=== PATIENT | male | born 1940 | race Caucasian/White ===

== ENCOUNTER 2017-07-31 12:42 | Inpatient (IN) | payer OTHER ==
[2017-07-31 13:58] LABS: BASOPHILS 0.3 % (0-2); EOSINOPHILS 3.3 % (0-7); HEMATOCRIT 46.4 % (42.0-54.0); HEMOGLOBIN 16.1 g/dL (13.5-17.5); IMMATURE GRANULOCYTES 0.7 % (0-5); LYMPHOCYTES 19.1 % (15-50); MCH 32.7 pg (26.0-34.0); MCHC 34.7 g/dL (31.0-37.0); MCV 94.1 fL (80.0-100.0); MEAN PLATELET VOLUME 12.9 fL (7.4-10.4); MONOCYTES 13.2 % (2-11); NEUTROPHILS 63.4 % (40-80); PLATELET COUNT 168 10x3/uL (130-400); RBC 4.93 10x6/uL (4.20-6.10); RDW 12.6 % (11.5-14.5); WBC 7.2 10x3/uL (4.8-10.8)
[2017-07-31 14:28] LABS: ALBUMIN 2.5 g/dL (3.4-5.0); ALKALINE PHOSPHATASE 101 U/L (46-116); ALT (SGPT) 29 U/L (10-68); BILIRUBIN - TOTAL 0.25 mg/dL (0.2-1.3); CALC OSMOLALITY 298 mosm/kg (275-300); CALCIUM 9.3 mg/dL (8.5-10.1); CHLORIDE - SERUM 105 mmol/L (98-107); CREATININE - SERUM 3.2 mg/dL (0.6-1.3); GLUCOSE 198 mg/dL (74-106); POTASSIUM - SERUM 3.8 mmol/L (3.5-5.1); PROTEIN - SERUM 6.9 g/dL (6.4-8.2); SODIUM 141 mmol/L (136-145); UREA NITROGEN 47 mg/dL (7-18); eGFR NON AFRICAN AMERICAN 20 mL/min (90-120)
[2017-07-31 14:38] LABS: CKMB 0.8 U/L (0.0-3.6); CREATINE KINASE 45 UL (21-232)
[2017-07-31 17:20] LABS: APPEARANCE CLEAR (CLEAR); BILIRUBIN NEGATIVE (NEGATIVE); COLOR YELLOW (YELLOW); GLUCOSE 100 mg/dL (NEGATIVE); KETONE NEGATIVE (NEGATIVE); NITRITE NEGATIVE (NEGATIVE); PROTEIN 2+ mg/dL (NEGATIVE); SPECIFIC GRAVITY 1.015 (1.005-1.020); UROBILINOGEN NORMAL (NORMAL)
[2017-07-31 17:21] LABS: BACTERIA FEW /hpf (NONE SEEN); RED CELLS - URINE 0-5 /hpf (0-5); WHITE CELLS - URINE OCC /hpf (0-5)
--- NOTE | 2017-07-31 18:18 | NUR ---
CM contacted Michelle with [facility] who states we do not have any medical or critical care beds, but are not on diversion. (see [facility] notes for times.) Notified ER . Tiki Bethea RN, CM.
[2017-07-31 19:00] VITALS: BP 169/89
--- NOTE | 2017-07-31 20:40 | NUR ---
RECEIVED FROM ER VIA WC. AMBULATED WITH ASSISTANCE TO BED AND BATHROOM TO VOID. ALERT AND ORIENTED TO PERSON, PLACE AND SITUATION. IV IN L WRIST INTACT SL. STATED HE HAS BEEN HAVING WEAKNESS AND DIZZINESS FOR APPROX. 2 WEEKS. STATED HE WAS NOT A DIABETIC, BUT [facility]. HAS HIS WALLET AND INITALLY AGREED TO HAVE IT LOCKED UP, BUT NOW DOES NOT WANT TO. ORIENTED TO ROOM AND CALL LIGHT. REQUESTED SOME ICE WATER.
[2017-08-01] VITALS (7 sets, daily range): BP systolic 150–193; BP diastolic 85–105; BMI 38.0; BMI 35.2
[2017-08-01] MEDS ORDERED: LIPITOR10 MG PO (00:02)
[2017-08-01] MEDS ORDERED: TRICOR48 MG PO (00:02)
[2017-08-01] MEDS ORDERED: PROSCAR5 MG PO (00:03)
[2017-08-01] MEDS ORDERED: GLUCOTROL 5 MG T5 MG PO (00:04)
[2017-08-01] MEDS ORDERED: HYDRALAZINE HCL10 MG PO (00:04)
[2017-08-01] MEDS ORDERED: BAYER CHEWABLE81 MG PO (00:05)
[2017-08-01] MEDS ORDERED: FLOMAX0.4 MG PO (00:06)
[2017-08-01] MEDS ORDERED: ISOSORBIDE DINI10 MG PO (00:07)
[2017-08-01] MEDS ORDERED: LANTUS INSULIN10 ML SQ (00:10)
--- NOTE | 2017-08-01 03:30 | NUR ---
RESTING WITH EYES CLOSED. RR 18 EVEN U/L. NO SIGNS/SYMPTOMS OF DISCOMFORT. CALL LIGHT IN REACH.
[2017-08-01 06:18] LABS: BASOPHILS 0.1 % (0-2); EOSINOPHILS 4.6 % (0-7); HEMATOCRIT 46.1 % (42.0-54.0); HEMOGLOBIN 15.8 g/dL (13.5-17.5); IMMATURE GRANULOCYTES 0.9 % (0-5); LYMPHOCYTES 23.9 % (15-50); MCH 32.2 pg (26.0-34.0); MCHC 34.3 g/dL (31.0-37.0); MCV 93.9 fL (80.0-100.0); MEAN PLATELET VOLUME 12.8 fL (7.4-10.4); MONOCYTES 12.4 % (2-11); NEUTROPHILS 58.1 % (40-80); PLATELET COUNT 172 10x3/uL (130-400); RBC 4.91 10x6/uL (4.20-6.10); RDW 12.7 % (11.5-14.5); WBC 7.6 10x3/uL (4.8-10.8)
[2017-08-01 06:39] LABS: ANION GAP 12.3 mmol/L (8-16); CALCIUM 8.7 mg/dL (8.5-10.1); CARBON DIOXIDE 26.9 mmol/L (21.0-32.0); CREATININE - SERUM 3.2 mg/dL (0.6-1.3)
[2017-08-01 06:45] LABS: POTASSIUM - SERUM 3.2 mmol/L (3.5-5.1)
--- NOTE | 2017-08-01 07:44 | NUR ---
AM ROUNDS COMPLETED. INTRODUCED MYSELF TO PT PRIMARY RN FOR TODAYS SHIFT. PT A&O SITTING UP IN BED RESTING QUIETLY. PT HAS A L.FA PIV WITH DRSG CDI AND SWAB CAPS IN USE. TUBING LABELED AND DATED CORRECTLY PER POLICY. PT WEARING TELEMETRY RUNNING SR WITH 1ST DEGREE BLOCK PER JOSEPHINE TELEMETRY MONITER. EMPTIED BEDSIDE URINAL OF 175ML CLEAR YELLOW URINE. PTS BP STILL HYPERTENSIVE AND HE WAS TREATED WITH PRN CLONIDINE PER TESTER EQUIPMENT NURSE. PT RESTING AND DENIES ANY CURRENT NEEDS AT THIS TIME. CL IN REACH, BED IN LOWEST, SIDE RAILS X2. WILL CPOC.
--- NOTE | 2017-08-01 11:06 | NUR ---
@ [phone] SPOKE WITH [facility] ([phone]) TO NOTIFY THEM THAT THE PATIENT WAS SENT TO [facility] ER FROM THE [facility] AND HE WAS ADMITTED TO THE FLOOR. HAD HIS NAME PLACED ON THE TRANSFER LIST. THE [facility] CURRENTLY HAS NOT BEDS (ACUTE OR ICU).
--- NOTE | 2017-08-01 11:36 | NUR ---
PT WAS FOUND ON BR FLOOR AND STATES HE SLIPPED ON SOMETHING FELL. NOTED WAS HIS KNOCKED OVER URINAL AND PTS CLOTHING IS SOILED WITH IT. PT DENIES HITTING HIS HEAD OR ANY PAIN. PT STATES HE SLIPPED IN BATHROOM AND GRABBED TOILET BUT DIDNT HIT ANY BODY PARTS. NO NOTED INJURIES OR SKIN BREAKDOWN. PT WAS NOT A HIGH FALL RISK ON ASSESSMENT HE LIVES ALONE AND NORMALLY AMBULATES SAFELY, THIS FALL WAS NOT R/T WEAKNESS HOWEVER HE SLIPPED EVEN WITH HIS NON-SLIP SOCKS ON. PRIMARY NOTIFIED AND TIFF GANNON NP ON FLOOR AND AWARE. INSPECTOR FINAL ASSEMBLY ELECTRICAL ASSISTED PT INTO BED AND COMPLETED BED BATH AND LINEN CHANGE PROVIDED. PT NOW CLEAN AND DRY AND RESTING QUIETLY IN BED. FALL RISK BAND PLACED, AND LEN PAD IN PLACE AND ON NOW. EXPLAINED TO PT TO CALL FOR ASSISTANCE OOB R/T THIS NEW FALL. CL IN REACH, BED IN LOWEST, SIDE RAILS X2, LEN PAD IN PLACE. WILL CPOC.
--- NOTE | 2017-08-01 13:44 | NUR ---
CALLED [facility] AND SPOKE WITH BERKLEY SHE IS GOING TO SEND OVER PTS BASELINE LABS FOR RENAL ISSUES AND ALL CURRENT MEDICATIONS AND H&P
[2017-08-01] MEDS ORDERED: TOPROL XL100 MG PO (14:44)
--- NOTE | 2017-08-01 15:04 | NUR ---
MED REC [facility] PER [facility] MOST RECENT HX ALONG WITH MEDICAL HX WHICH WAS PRESENTED TO PRIMARY FOR RECORDS. WILL CPOC.
--- NOTE | 2017-08-01 16:24 | NUR ---
PT FEELS NEED TO URINATE AFTER EMPTYING BLADDER. AT BEDSIDE AND REQUEST BLADDER SCAN. POST VOID RETENTION SHOWS 385ML, LOWE ORDERED AND WILL BE PLACED. TEACHING PROVIDED TO PT, PT VERBALIZED UNDERSTANDING AND DENIES ANY QUESTIONS OR CONCERNS. WILL CPOC.
--- NOTE | 2017-08-01 16:46 | NUR ---
16 FR LOWE CATHETER INSERTED USING STERILE TECHNIQUE. PT DID NOT TOLERATE WELL IT WAS VERY PAINFUL AND HE HOLLERED OUT CONTINUOUSLY. STAT LOCK SECURED TO L.INNER THIGH. SCANT AMOUNT OF BLOODY URINE DRAINED AT FIRST AND ITS NOW CLEAR YELLOW. APPLIED SCDS BILAT FOR DVT PROPHYLACTICS AND PT VERBALIZED UNDERSTANDING. NO FURTHER NEEDS AT THIS TIME. CL IN REACH, BED IN LOWEST, SIDE RAILS X2. WILL CPOC.
[2017-08-01 17:27] LABS: HEMOGLOBIN A1C 7.1 % (4.8-6.0)
--- NOTE | 2017-08-01 17:37 | NUR ---
PRN BP MEDS NOT GIVEN PER VERBAL ORDERS AT BEDSIDE R/T STARTING ALL PTS NORMAL BP MEDS. WILL TREAT IF STILL NEEDED.
--- NOTE | 2017-08-01 20:42 | NUR ---
NIGHTLY MEDICATIONS PASSED. PT RESTING QUIETLY IN BED AND DENIES ANY CURRENT PAIN FOR FURTHER NEEDS, STATES "IM READY TO SLEEP AND SUPPER WAS GOOD" CL IN REACH, BED IN LOWEST, SIDE RAILS X2. WILL CPOC.
[2017-08-02 01:53] VITALS: BP 152/77
--- NOTE | 2017-08-02 02:01 | NUR ---
PT RESTING COMFORTABLY, EYES CLOSED, RESPIRATIONS EVEN AND UNLABORED. CONTINUE TO MONITOR CLOSELY. BED LOW, CALL LIGHT IN REACH, SIDE RAILS X 2, HOB 20 DEGREES.
--- NOTE | 2017-08-02 03:48 | NUR ---
I ASSISTED PT UP TO BATHROOM, PT STATES HE NEEDS TO HAVE A BM. CHRISSY IS DRAINING DARK COLORED URINE AT THIS TIME. PT STATES HE HAS FALLEN SEVERAL TIMES AT HOME PRIOR TO BEING ADMITTED HERE. I HAVE ASKED PT TO USE THE CALL STRING IN THE BATHROOM AND NOT TO AMBULATE ON HIS OWN. PT STATES HE WILL DO SO. CONTINUE TO MONITOR CLOSELY.
[2017-08-02 04:16] VITALS: BP 127/79
[2017-08-02 05:39] LABS: BASOPHILS 0.1 % (0-2); EOSINOPHILS 4.3 % (0-7); HEMATOCRIT 42.3 % (42.0-54.0); HEMOGLOBIN 14.3 g/dL (13.5-17.5); IMMATURE GRANULOCYTES 0.6 % (0-5); LYMPHOCYTES 18.8 % (15-50); MCHC 33.8 g/dL (31.0-37.0); MCV 94.6 fL (80.0-100.0); MEAN PLATELET VOLUME 12.7 fL (7.4-10.4); MONOCYTES 14.7 % (2-11); NEUTROPHILS 61.5 % (40-80); PLATELET COUNT 151 10x3/uL (130-400); RBC 4.47 10x6/uL (4.20-6.10); RDW 12.6 % (11.5-14.5); WBC 6.8 10x3/uL (4.8-10.8)
[2017-08-02 05:47] LABS: ANION GAP 10.8 mmol/L (8-16); CALCIUM 8.3 mg/dL (8.5-10.1); CARBON DIOXIDE 26.5 mmol/L (21.0-32.0); CREATININE - SERUM 3.5 mg/dL (0.6-1.3); POTASSIUM - SERUM 3.3 mmol/L (3.5-5.1)
--- NOTE | 2017-08-02 08:01 | NUR ---
AM ROUNDS - PT IS IN BED AND AWAKE AT THIS TIME. YELLOW BAND ON. SCDS ON. LOWE DRAINING CLEAR YELLOW. NON SKID SOCKS ON. IV TO LEFT WRIST, SL. UNSURE WHAT IS SHOWING ON THE MONITOR. REED WORKER IS STUDING THE STRIP AT THIS TIME. NO NEEDS AT THIS TIME. WILL CONTINUE TO MONITOR
[2017-08-02 08:46] VITALS: BP 155/76
[2017-08-02 11:59] VITALS: BP 135/68
--- NOTE | 2017-08-02 15:13 | NUR ---
PC to [facility] @ [phone]. Spoke with Larissa. She states they do not have any beds and are holding patients in their ED. She states they will contact us when bed available, no need for us to call daily.
--- NOTE | 2017-08-02 15:50 | NUR ---
MET WITH PATIENT TO DISCUSS DISCHARGE PLAN. PATIENT RESIDES AT [facility]. HIS DAUGHTER USE TO LIVE IN HIS APARTMENT WITH HIM, BUT HAS MOVED OUT AND HE DOES NOT KNOW HER NEW ADDRESS OR PHONE NUMBER (SHE WAS HIS EMERGENCY CONTACT). HE SAID HE HAS A FRIEND, BUT WON'T GIVE OUT HIS INFORMATION WITHOUT HIS PERMISSION. HE WILL RETURN TO THE [facility]. HE HAS A WALKER AT HOME AND OXYGEN THAT WAS SUPPLIED BY THE [facility]. HE SEE'S A DOCTOR AT HE [facility], BUT IS UNSURE OF HIS NAME. STATED "SOMETIMES I SEE SOMEONE DIFFERENT EACH TIME I GO". HE SAID HE HAS ANOTHER APPOINTMENT ALREADY SCHEDULED, BUT THAT INFORMATION IS NOT WITH HIM. WHEN WE DISCUSSED HOW HE WAS GOING TO GET HOME, HE SAID HE WOULDN'T HAVE A RIDE UNTIL SATURDAY NIGHT LATE, OR MAYBE SATURDAY, OR MAYBE SATURDAY. I EXPLAINED I WOULD TALK WITH MY WHOLESALE MANAGER ABOUT THE POSSIBILITY OF GETTING HIM A CAB HOME. PATIENT WAS OK WITH THIS. HE DENIES HOME HEALTH OR PERSONAL CARE AIDES OR THE NEED FOR THEM. [facility], AND DOES NOT USE LOCAL PHARMACIES. HIS DAUGHTER GETS "THOSE SMALLER DOSES FOR ME". CM WILL CONTINUE TO FOLLOW UNTIL DISCHARGED.
--- NOTE | 2017-08-02 15:56 | NUR ---
WALKED INTO PT'S ROOM AND IV IS OUT AND SITTING ON BEDSIDE TABLE. ASKED PT WHO TOOK OUT IV AND PT STATED "I DID". I ASKED WHY AND PT STATED "BECAUSE THEY SAID I WAS GOING HOME". PT IS CONCERNED ABOUT HIS LOWE AND BEING D/C. I EXPLAINED TO PT THAT THE D/C PAPERWORK IS BEING DONE AT THIS TIME AND I WILL BE BACK IN TO D/C HIM AND AT THAT TIME I WILL D/C LOWE AND TO PLEASE LEAVE EVERYTHING ELSE ATTACHED. WILL CONTINUE TO MONITOR
[2017-08-02 16:20] VITALS: BP 156/76
--- NOTE | 2017-08-02 16:39 | NUR ---
PATIENT STATES HE HAS ALREADY HAD A FLU VACCINE
--- NOTE | 2017-08-02 16:49 | NUR ---
PT IS BED AT THIS TIME WITH NO NEEDS. BED AT LOWEST POSITION. CALL VARGAS IN USE/REACH. SIDE RAILS UP X2. WILL CONTINUE TO MONITOR
--- NOTE | 2017-08-02 17:38 | NUR ---
WALKED IN PT'S ROOM TO Rg/Remigio LOWE AND PT WAS SITTING ON FLOOR. PT STATES HE WAS TRYING TO GET TO ANOTHER CHAIR AND "SLID" OUT OF THE BED. PT STATES HE DID NOT FALL, HIT HIS HEAD OR ANY OTHER PART OF HIS BODY. PT DENIES AND PAIN. NO SCRATCES OR RED AREAS NOTED. CHARGE NURSE NOTIFIED, JOE BRAXTON RN. TIFF WITH DR. JAME LOMBARDI. AWAITING RETURN CALL FROM TIFF. LEN MAT WAS ON BED AND HOOKED UP AND ON. UNSURE WHY ALARM DID NOT SOUND. BED WAS AND IS AT LOWEST POSITION. CALL VARGAS IS AND WAS WITHIN REACH. SIDE RAILS WERE AND ARE UP X2. NON SKID SOCKS WERE AND ARE ON. WILL CONTINUE TO MONITOR.
--- NOTE | 2017-08-02 18:22 | NUR ---
MARIA C MATTHEW APN AGAIN
[2017-08-02 19:00] VITALS: BP 174/87
--- NOTE | 2017-08-02 19:35 | NUR ---
PT IN BED WATCHING TELEVISION. TURNED OFF LIGHTS AND CLOSED DOOR PER REQUEST. DENIES FURTHER NEEDS AT THIS TIME.
--- NOTE | 2017-08-02 20:57 | NUR ---
PT IN BED RESTING QUEITLY. BED IN LOW POSITION. CALL LIGHT WITHIN REACH. WILL CPOC.
[2017-08-03] VITALS: BP 147/74
[2017-08-03 04:00] VITALS: BP 147/75
[2017-08-03 05:46] LABS: BASOPHILS 0.1 % (0-2); EOSINOPHILS 4.9 % (0-7); HEMATOCRIT 41.9 % (42.0-54.0); HEMOGLOBIN 14.3 g/dL (13.5-17.5); IMMATURE GRANULOCYTES 0.4 % (0-5); MCH 31.9 pg (26.0-34.0); MCHC 34.1 g/dL (31.0-37.0); MCV 93.5 fL (80.0-100.0); MEAN PLATELET VOLUME 12.6 fL (7.4-10.4); MONOCYTES 15.3 % (2-11); NEUTROPHILS 61.3 % (40-80); PLATELET COUNT 147 10x3/uL (130-400); RBC 4.48 10x6/uL (4.20-6.10); RDW 12.6 % (11.5-14.5)
[2017-08-03 05:58] LABS: ANION GAP 12.5 mmol/L (8-16); CALCIUM 8.3 mg/dL (8.5-10.1); CARBON DIOXIDE 23.5 mmol/L (21.0-32.0); CREATININE - SERUM 3.4 mg/dL (0.6-1.3)
[2017-08-03 08:00] VITALS: BP 162/69
--- NOTE | 2017-08-03 08:43 | NUR ---
AM ROUNDS - PT IS IN BED AND AWAKE AT THIS TIME. MONITOR SHOWING SR, HR 60. NO IV. BED AT LOWEST POSITION. CALL VARGAS IN USE/REACH. SIDE RAILS UP X2. NO NEEDS AT THIS TIME. WILL CONTINUE TO MONITOR
[2017-08-03 12:20] VITALS: BP 148/60
--- NOTE | 2017-08-03 13:41 | NUR ---
D/C - WRITTEN AND VERBAL D/C INSTRUCTIONS GIVEN TO PT. NO IV TO REMOVE. HEART MONITOR D/C AND RETURNED TO PERMANENT MOLD SUPERVISOR. PT LEFT FLOOR VIA WHEELCHAIR WITH MARCELO. TERA TO NURSES' REGISTRY DIRECTOR PT. TAXI CO CALLED. WILL D/C
--- NOTE | 2017-08-05 10:26 | NUR ---
Patient Name: BRYANT ESPANA Encounter No: [id number] : 1940 Primary Insurance: [employer] Anticipated DC Date: 06-02-2017 Planned Disposition: HOME DCP follow-up note: CHART REVIEWED, CM CALLED [facility] EXPEDITOR, , NOTIFIED [facility] THAT PT HAD DISCHARGED HOME 08-02-17 AND LEFT THE HOSPITAL ON 08-03-17. Romeo Preston, CASE MANAGMENT
== END 2017-08-03 13:45 | disposition home or self-care (01) | DRG 683 ==
LOC: D.ER 12:42 → D.M2 18:44
PROVIDERS: Family Medicine; ADMIT Family Medicine
DX: I12.9 Hypertensive chronic kidney disease with stage 1 through stage 4 chronic kidney disease, or unspecified chronic kidney disease (principal); N18.4 Chronic kidney disease, stage 4 (severe); N32.0 Bladder-neck obstruction; G47.33 Obstructive sleep apnea (adult) (pediatric); E11.22 Type 2 diabetes mellitus with diabetic chronic kidney disease; I25.10 Atherosclerotic heart disease of native coronary artery without angina pectoris; F03.90 Unspecified dementia, unspecified severity, without behavioral disturbance, psychotic disturbance, mood disturbance, and anxiety; Z85.46 Personal history of malignant neoplasm of prostate; Z87.891 Personal history of nicotine dependence; Z95.1 Presence of aortocoronary bypass graft; R51 Headache

== ENCOUNTER 2018-01-21 19:26 | Inpatient (IN) | payer MEDICARE, OTHER ==
[~2018-01-21] VITALS: Ht 182.9 cm; Wt 106.6 kg
--- NOTE | ~2018-01-21 | EC ---
PATIENT:BRYANT ESPANA DATE OF SERVICE: 01/21/18 SEX: M MEDICAL RECORD: [id number] DATE OF : [birth year] LOCATION:D.M2 D.212 AGE OF PATIENT: 77 ADMISSION DATE: 01/21/18 REFERRING PHYSICIAN: INTERPRETING PHYSICIAN: GHAZAL KENNEDY MD ECHOCARDIOGRAM REPORT ECHO CHARGES 4 ECHO COMPLETE Date: 01/22 CLINICAL DIAGNOSIS: CHF ECHOCARDIOGRAPHIC MEASUREMENTS (adult normal given) AC root (d.<3.7cm) 3.0 cm LV Septum d (<1.2 cm> 1.6 cm Valve Excursion 2.0 cm LV Septum (systole) 2.2 cm Left Atria (s.<4.0cm> 3.7 cm LVPW d(<1.2cm) 1.6 cm RV (d.<2.3cm) 3.1 cm LVPW (sytole) 2.0 cm LV diastole(<5.6CM) 5.9 cm MV E-F(>70mm/sec) cm LV systole 4.3 cm LVOT Diameter 1.8 cm MV exc.(>10mm) cm Est.ejection fraction (50-75%) % DOPPLER: LVIT cm/sec A 85.0 cm/sec E 103 cm/sec LA cm/sec RVSP 53.2 mmHg LVOT 86.0 cm/sec AOP1/2T m/s Asc. Ao 164 cm/sec RVOT 68.0 cm/sec RA cm/sec PA 103 cm/sec AV Gradient Peak 11.0 mmHg AV Mean 5.3 mmHg AV Area 1.3 cm MV Gradient Peak 6.2 mmHg MV Mean 2.2 mmHg MV Area cm COMMENTS: Flight Test Engineer: [address] [place] [address] Radio Technician: 1 Dr. Kennedy TAPE# PACS Pericardial Effusion N DATE OF SERVICE: FINDINGS: 1. Left ventricular chamber size is mildly dilated. Left ventricular systolic function is markedly reduced. Overall ejection fraction in the 15% to 20% range. 2. Left atrium, right atrium, and right ventricular chamber sizes are within normal limits. 3. Valvular structures have normal structure and motion. 4. Doppler interrogation reveals severe mitral regurgitation, severe tricuspid ECHOCARDIOGRAM REPORT [id number] BRYANT ESPANA regurgitation, no other valvular insufficiency or stenosis. Pulmonary systolic pressure is elevated, estimated at 53 mmHg. 5. No evidence of pericardial effusion or left ventricular thrombus. TRANSINT:[id number] Voice Confirmation ID: [id number] DOCUMENT ID: [id number] GHAZAL KENNEDY MD at 1057 CC: [id number] DICTATION DATE: 01/23/18 1254 STAFFING PROGRAM MANAGER: 01/23/18 1304 ADM IN [facility] [address] [place] [address]
[~2018-01-21 19:26] MED LIST: BAYER CHEWABLE81 MG PO; FLOMAX0.4 MG PO; GLUCOTROL 5 MG T5 MG PO; HYDRALAZINE HCL10 MG PO; ISOSORBIDE DINI10 MG PO; LANTUS INSULIN10 ML SQ; LIPITOR10 MG PO; PROSCAR5 MG PO; TOPROL XL100 MG PO; TRICOR48 MG PO
[2018-01-21 19:53] LABS: BASOPHILS 0.1 % (0-2); EOSINOPHILS 0.2 % (0-7); HEMATOCRIT 45.2 % (42.0-54.0); HEMOGLOBIN 15.4 g/dL (13.5-17.5); IMMATURE GRANULOCYTES 0.4 % (0-5); LYMPHOCYTES 8.8 % (15-50); MCH 31.9 pg (26.0-34.0); MCHC 34.1 g/dL (31.0-37.0); MCV 93.6 fL (80.0-100.0); MEAN PLATELET VOLUME 12.5 fL (7.4-10.4); MONOCYTES 13.9 % (2-11); NEUTROPHILS 76.6 % (40-80); PLATELET COUNT 167 10x3/uL (130-400); RBC 4.83 10x6/uL (4.20-6.10); RDW 13.5 % (11.5-14.5); WBC 10.2 10x3/uL (4.8-10.8)
[2018-01-21 20:35] LABS: ALBUMIN 2.3 g/dL (3.4-5.0); ALKALINE PHOSPHATASE 132 U/L (46-116); ALT (SGPT) 7 U/L (10-68); BILIRUBIN - TOTAL 1.53 mg/dL (0.2-1.3); CALCIUM 8.5 mg/dL (8.5-10.1); CARBON DIOXIDE 21.9 mmol/L (21.0-32.0); CKMB 0.2 U/L (0.0-3.6); CREATINE KINASE 18 UL (21-232); CREATININE - SERUM 2.1 mg/dL (0.6-1.3); GLUCOSE 176 mg/dL (74-106); PROTEIN - SERUM 6.6 g/dL (6.4-8.2); UREA NITROGEN 47 mg/dL (7-18); eGFR NON AFRICAN AMERICAN 32 mL/min (90-120)
[2018-01-21 20:57] LABS: CALC OSMOLALITY 307 mosm/kg (275-300); CHLORIDE - SERUM 107 mmol/L (98-107); POTASSIUM - SERUM 3.3 mmol/L (3.5-5.1); SODIUM 147 mmol/L (136-145)
[2018-01-21 21:06] LABS: TROPONIN-I 0.087 ng/mL (0.000-0.060)
[2018-01-21 21:25] LABS: PRO BNP 28596 pg/mL (0-450)
[2018-01-22] VITALS (7 sets, daily range): BP systolic 121–159; BP diastolic 78–97; Ht 182.9 cm; Wt 106.6 kg
[2018-01-22 02:26] LABS: CKMB 0.8 U/L (0.0-3.6); CREATINE KINASE 28 UL (21-232)
[2018-01-22 02:27] LABS: TROPONIN-I 0.114 ng/mL (0.000-0.060)
[2018-01-22 07:57] LABS: BASOPHILS 0.1 % (0-2); EOSINOPHILS 1.5 % (0-7); HEMATOCRIT 43.6 % (42.0-54.0); HEMOGLOBIN 14.5 g/dL (13.5-17.5); IMMATURE GRANULOCYTES 0.5 % (0-5); LYMPHOCYTES 11.4 % (15-50); MCH 31.1 pg (26.0-34.0); MCHC 33.3 g/dL (31.0-37.0); MCV 93.6 fL (80.0-100.0); MEAN PLATELET VOLUME 12.7 fL (7.4-10.4); MONOCYTES 15.9 % (2-11); NEUTROPHILS 70.6 % (40-80); PLATELET COUNT 142 10x3/uL (130-400); RBC 4.66 10x6/uL (4.20-6.10); RDW 13.5 % (11.5-14.5); WBC 8.4 10x3/uL (4.8-10.8)
[2018-01-22 09:13] LABS: CALC OSMOLALITY 308 mosm/kg (275-300); CALCIUM 8.6 mg/dL (8.5-10.1); CARBON DIOXIDE 25.8 mmol/L (21.0-32.0); CHLORIDE - SERUM 106 mmol/L (98-107); CKMB 0.8 U/L (0.0-3.6); CREATINE KINASE 23 UL (21-232); GLUCOSE 152 mg/dL (74-106); MAGNESIUM - SERUM 1.9 mg/dL (1.8-2.4); POTASSIUM - SERUM 3.3 mmol/L (3.5-5.1); SODIUM 147 mmol/L (136-145); UREA NITROGEN 51 mg/dL (7-18)
[2018-01-22 09:15] LABS: CREATININE - SERUM 4.2 mg/dL (0.6-1.3); TROPONIN-I 0.097 ng/mL (0.000-0.060); eGFR NON AFRICAN AMERICAN 15 mL/min (90-120)
[2018-01-22 14:37] LABS: CKMB 0.6 U/L (0.0-3.6); CREATINE KINASE 22 UL (21-232)
[2018-01-22 15:12] LABS: TROPONIN-I 0.082 ng/mL (0.000-0.060)
[2018-01-22 15:58] LABS: APPEARANCE HAZY (CLEAR); COLOR YELLOW (YELLOW); NITRITE NEGATIVE (NEGATIVE); SPECIFIC GRAVITY 1.015 (1.005-1.020)
[2018-01-22 15:59] LABS: BILIRUBIN NEGATIVE (NEGATIVE); GLUCOSE 50 mg/dL (NEGATIVE); KETONE NEGATIVE (NEGATIVE); PROTEIN 1+ mg/dL (NEGATIVE); UROBILINOGEN NORMAL (NORMAL)
[2018-01-22 16:00] LABS: BACTERIA MODERATE /hpf (NONE SEEN); RED CELLS - URINE >50 /hpf (0-5); WHITE CELLS - URINE 0-5 /hpf (0-5)
[2018-01-23 04:00] VITALS: BP 124/82
[2018-01-23 05:56] LABS: BASOPHILS 0.1 % (0-2); EOSINOPHILS 3.3 % (0-7); HEMATOCRIT 40.1 % (42.0-54.0); HEMOGLOBIN 13.6 g/dL (13.5-17.5); IMMATURE GRANULOCYTES 0.6 % (0-5); LYMPHOCYTES 13.6 % (15-50); MCH 31.5 pg (26.0-34.0); MCHC 33.9 g/dL (31.0-37.0); MCV 92.8 fL (80.0-100.0); MEAN PLATELET VOLUME 12.8 fL (7.4-10.4); MONOCYTES 13.8 % (2-11); NEUTROPHILS 68.6 % (40-80); PLATELET COUNT 161 10x3/uL (130-400); RBC 4.32 10x6/uL (4.20-6.10); RDW 13.4 % (11.5-14.5); WBC 6.9 10x3/uL (4.8-10.8)
[2018-01-23 06:30] LABS: ANION GAP 17.9 mmol/L (8-16); CALCIUM 8.4 mg/dL (8.5-10.1); CARBON DIOXIDE 25.2 mmol/L (21.0-32.0); CHOL - HDL RATIO 7.5 ratio (2.3-4.9); CREATININE - SERUM 4.8 mg/dL (0.6-1.3); LDL-HDL RATIO 5.1 ratio (1.5-3.5); MAGNESIUM - SERUM 1.8 mg/dL (1.8-2.4); POTASSIUM - SERUM 3.1 mmol/L (3.5-5.1)
[2018-01-23 09:35] VITALS: BP 147/88
[2018-01-23 18:42] VITALS: BP 161/89
[2018-01-23 20:00] VITALS: BP 167/85
[2018-01-23 22:07] LABS: PROTEIN - URINE 272.9 mg/dL (0.0-11.9)
[2018-01-24] VITALS: BP 166/98
[2018-01-24 06:08] LABS: ANION GAP 17.1 mmol/L (8-16); CALCIUM 8.8 mg/dL (8.5-10.1); CARBON DIOXIDE 24.1 mmol/L (21.0-32.0); CREATININE - SERUM 4.9 mg/dL (0.6-1.3); POTASSIUM - SERUM 3.2 mmol/L (3.5-5.1)
[2018-01-24 06:09] LABS: BASOPHILS 0.1 % (0-2); EOSINOPHILS 4.8 % (0-7); HEMATOCRIT 39.2 % (42.0-54.0); HEMOGLOBIN 13.3 g/dL (13.5-17.5); IMMATURE GRANULOCYTES 0.5 % (0-5); LYMPHOCYTES 12.8 % (15-50); MCH 31.2 pg (26.0-34.0); MCHC 33.9 g/dL (31.0-37.0); MEAN PLATELET VOLUME 12.7 fL (7.4-10.4); MONOCYTES 11.3 % (2-11); NEUTROPHILS 70.5 % (40-80); PLATELET COUNT 176 10x3/uL (130-400); RBC 4.26 10x6/uL (4.20-6.10); RDW 13.2 % (11.5-14.5); WBC 7.5 10x3/uL (4.8-10.8)
[2018-01-24 09:35] VITALS: BP 150/85
[2018-01-24 12:26] VITALS: BP 154/79
[2018-01-24 16:57] VITALS: BP 165/80
[2018-01-24 21:06] VITALS: BP 122/80
[2018-01-25 04:32] VITALS: BP 147/90
[2018-01-25 05:40] LABS: BASOPHILS 0.2 % (0-2); EOSINOPHILS 6.6 % (0-7); HEMATOCRIT 39.9 % (42.0-54.0); HEMOGLOBIN 13.7 g/dL (13.5-17.5); IMMATURE GRANULOCYTES 0.5 % (0-5); LYMPHOCYTES 16.4 % (15-50); MCH 31.4 pg (26.0-34.0); MCHC 34.3 g/dL (31.0-37.0); MCV 91.3 fL (80.0-100.0); MEAN PLATELET VOLUME 12.1 fL (7.4-10.4); MONOCYTES 12.6 % (2-11); NEUTROPHILS 63.7 % (40-80); PLATELET COUNT 160 10x3/uL (130-400); RBC 4.37 10x6/uL (4.20-6.10); WBC 5.8 10x3/uL (4.8-10.8)
[2018-01-25 05:55] LABS: ANION GAP 16.8 mmol/L (8-16); CALCIUM 8.8 mg/dL (8.5-10.1); CARBON DIOXIDE 25.2 mmol/L (21.0-32.0)
[2018-01-25 07:53] VITALS: BP 141/87
[2018-01-25 11:11] VITALS: BP 137/81
[2018-01-25 15:19] VITALS: BP 140/85
[2018-01-25 20:30] VITALS: BP 151/88
[2018-01-26 00:30] VITALS: BP 140/92
[2018-01-26 04:30] VITALS: BP 147/93
[2018-01-26 07:33] LABS: BASOPHILS 0.1 % (0-2); EOSINOPHILS 4.8 % (0-7); HEMOGLOBIN 14.3 g/dL (13.5-17.5); IMMATURE GRANULOCYTES 0.9 % (0-5); LYMPHOCYTES 11.9 % (15-50); MCH 31.5 pg (26.0-34.0); MCV 92.5 fL (80.0-100.0); MEAN PLATELET VOLUME 12.5 fL (7.4-10.4); MONOCYTES 12.4 % (2-11); NEUTROPHILS 69.9 % (40-80); PLATELET COUNT 188 10x3/uL (130-400); RBC 4.54 10x6/uL (4.20-6.10); RDW 13.1 % (11.5-14.5)
[2018-01-26 07:34] LABS: WBC 8.1 10x3/uL (4.8-10.8)
[2018-01-26 07:54] LABS: ANION GAP 20.5 mmol/L (8-16); CARBON DIOXIDE 24.2 mmol/L (21.0-32.0); CREATININE - SERUM 5.3 mg/dL (0.6-1.3); POTASSIUM - SERUM 3.7 mmol/L (3.5-5.1)
[2018-01-26 09:27] VITALS: BP 162/79
[2018-01-26 12:09] VITALS: BP 154/85
[2018-01-26 15:05] VITALS: BP 124/80
[2018-01-26 20:00] VITALS: BP 150/85
[2018-01-27] VITALS: BP 178/103
[2018-01-27 04:00] VITALS: BP 146/95
[2018-01-27 07:00] LABS: BASOPHILS 0.1 % (0-2); EOSINOPHILS 3.4 % (0-7); HEMATOCRIT 43.6 % (42.0-54.0); HEMOGLOBIN 14.6 g/dL (13.5-17.5); IMMATURE GRANULOCYTES 0.7 % (0-5); LYMPHOCYTES 13.5 % (15-50); MCH 31.3 pg (26.0-34.0); MCHC 33.5 g/dL (31.0-37.0); MCV 93.4 fL (80.0-100.0); MEAN PLATELET VOLUME 12.6 fL (7.4-10.4); MONOCYTES 13.2 % (2-11); NEUTROPHILS 69.1 % (40-80); PLATELET COUNT 207 10x3/uL (130-400); RBC 4.67 10x6/uL (4.20-6.10); WBC 6.8 10x3/uL (4.8-10.8)
[2018-01-27 07:03] LABS: ANION GAP 17.9 mmol/L (8-16); CALCIUM 8.9 mg/dL (8.5-10.1); CARBON DIOXIDE 27.1 mmol/L (21.0-32.0); CREATININE - SERUM 5.2 mg/dL (0.6-1.3)
[2018-01-27 08:25] VITALS: BP 159/63
[2018-01-27 11:02] VITALS: BP 141/86
[2018-01-27] MEDS ORDERED: ALBUTEROL2.5 MG/3 M INH (13:19)
[2018-01-27] MEDS ORDERED: IPRAT-ALBUT 0.5-3 ML INH (13:19)
[2018-01-27 16:23] VITALS: BP 136/88
[2018-01-27 16:32] LABS: APPEARANCE HAZY (CLEAR); BILIRUBIN NEGATIVE (NEGATIVE); COLOR YELLOW (YELLOW); GLUCOSE 100 mg/dL (NEGATIVE); KETONE NEGATIVE (NEGATIVE); NITRITE NEGATIVE (NEGATIVE); PROTEIN 1+ mg/dL (NEGATIVE); SPECIFIC GRAVITY 1.015 (1.005-1.020); UROBILINOGEN NORMAL (NORMAL)
[2018-01-27 16:34] LABS: BACTERIA FEW /hpf (NONE SEEN); RED CELLS - URINE >50 /hpf (0-5); WHITE CELLS - URINE 0-5 /hpf (0-5)
[2018-01-27 16:40] LABS: CREATININE - URINE 92.7 mg/dL (30-125)
[2018-01-27 16:45] LABS: PRO/CRE RATIO URINE 6.8 mg/g; PROTEIN - URINE 628.8 mg/dL (0.0-11.9)
== END 2018-01-27 18:39 | DRG 280 ==
LOC: D.ER 19:26 → D.EDHOLD 23:18 → D.M2 23:18 → D.SDCHOLD 01-22 14:37 → D.M2 01-27 18:39
PROVIDERS: Family Medicine; Internal Medicine Nephrology
PROC: 0T9B70Z Drainage of Bladder with Drainage Device, Via Natural or Artificial Opening (ICD-10-PCS; principal; 2018-01-22)
DX: I13.0 Hypertensive heart and chronic kidney disease with heart failure and stage 1 through stage 4 chronic kidney disease, or unspecified chronic kidney disease (principal); I21.4 Non-ST elevation (NSTEMI) myocardial infarction; I50.23 Acute on chronic systolic (congestive) heart failure; N18.4 Chronic kidney disease, stage 4 (severe); N39.0 Urinary tract infection, site not specified; M62.82 Rhabdomyolysis; I25.10 Atherosclerotic heart disease of native coronary artery without angina pectoris; E11.22 Type 2 diabetes mellitus with diabetic chronic kidney disease; F03.90 Unspecified dementia, unspecified severity, without behavioral disturbance, psychotic disturbance, mood disturbance, and anxiety; E78.5 Hyperlipidemia, unspecified; E87.6 Hypokalemia; G47.33 Obstructive sleep apnea (adult) (pediatric); E11.40 Type 2 diabetes mellitus with diabetic neuropathy, unspecified; D63.1 Anemia in chronic kidney disease; N32.0 Bladder-neck obstruction; W19.XXXA Unspecified fall, initial encounter; M47.816 Spondylosis without myelopathy or radiculopathy, lumbar region

== ENCOUNTER 2018-01-27 16:56 | Inpatient (IN) | payer MEDICARE, OTHER ==
[~2018-01-27] VITALS: Ht 182.9 cm; Wt 95.3 kg
--- NOTE | ~2018-01-27 | RHP ---
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 HISTORY OF PRESENT ILLNESS: The patient is a 77-year-old gentleman who is admitted to the rehab with a working diagnosis of CHF myopathy. He presented to the ER after being found on the floor of his apartment. He presented to the ED after he had increasing shortness of breath. The patient states that over the past 2-3 months, he has been falling frequently due to his unsteady gait and dizziness. States that he fell several days prior to this acute hospital admit and laid on the floor all night because he cannot get up. He has got a history of hypertension, hyperlipidemia, diabetes, coronary artery disease, chronic kidney disease, CHF, prostate cancer, dementia, obstructive sleep apnea. His 12-lead EKG showed a rate of 115. He had T-wave abnormalities. Troponin that was elevated. BNP of 28,000. He was sent to the offset label rewinder on 01/22/2018 with stent placement. He had progressive increasing debility over the previous 2-3 months and multiple falls due to weakness and unsteady gait, shortness of breath, and dizziness. He was living in his apartment alone at [facility] and was moderately independent with use of rolling walker for mobility and independent with his ADLs. He has noted proximal weakness with difficulty rising from bed to chair and he is only able to ambulate short distances with a noted unsteady gait and complaint of shortness of breath. He is currently on 2 liters of O2 and he has no home oxygen set up at this time. He is currently set up for max assist with ADLs, max assist to total assist for mobility. He and his family plan for him to discharge to an assisted living facility after his acute inpatient rehab, hopefully to get his prior level of functioning or better due to multiple recent falls and needing to be checked more often than he is currently in his apartment. COMORBIDITIES: In this patient include CHF, pulmonary edema, chronic kidney disease, hyperlipidemia, hypertension, diabetes mellitus, dementia, coronary artery disease, non-Q-wave WI, history of prostate cancer, hyperkalemia, anemia of chronic disease, deconditioning, frequent falls, and fluid overload. PAST MEDICAL HISTORY: Significant for weakness, diabetes, hypertension, CHF, WI in the past, pneumonia, prostate cancer, urinary incontinence, renal failure. He has got a history of tobacco use and prostate problems. PAST SURGICAL HISTORY: Includes coronary artery bypass grafting in 2012. ALLERGIES: No known drug allergies. CURRENT MEDICATIONS: Include isosorbide 10 mg t.i.d., Glipizide 5 mg b.i.d., finasteride 5 mg daily, Lipitor 10 mg daily, polyethylene glycol 17 grams in 8 ounce of water daily, Flomax 0.4 mg q.h.s., DuoNeb updrafts q.i.d. p.r.n. HABITS: No current alcohol or tobacco use. He does have a history of tobacco use. FAMILY HISTORY: Noncontributory. HISTORY AND PHYSICAL [id number] BRYANT ESPANA SOCIAL HISTORY: The patient hopes to move from here to an assisted living facility. REVIEW OF SYSTEMS: GENERAL: He does complain a little weakness. HEENT: Denies cold, cough, or congestion. CARDIOVASCULAR: He denies chest pain. PHYSICAL EXAMINATION: VITAL SIGNS: Stable, afebrile. GENERAL: Elderly gentleman, in no acute distress, alert upon exam. HEENT: Normocephalic and atraumatic. Mucosa moist. NECK: Supple. No lymphadenopathy. LUNGS: Clear at this time. HEART: A regular rate and rhythm, although he is tachycardic. ABDOMEN: Benign. EXTREMITIES: No clubbing, cyanosis or edema. NEUROLOGIC: Intact. LABORATORY DATA: His white count 6.8, H&H 14 and 42, and platelet count was noted to be 200. His sodium is 142, potassium 4.2, BUN and creatinine of 79 and 5.4 and blood sugar is noted to be 146. 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 The patient has potential to make improvement. We instituted the following multidisciplinary therapies including, but not limited to physical, occupational, respiratory, speech, nutritional services, prosthetics, and orthotics. Given his complex condition and risk for more complications, rehabilitation services cannot be provided at a low level of care such as retirement facility. PLAN: 1. Admit to [facility] rehab for intensive inpatient therapy to include the following disciplines: A. Physical therapy to improve gait, all transfer skills and bed mobility to a modified independent level. B. Occupational therapy to improve activities of daily living to a modified independent level. C. Case management to assist with discharge planning and placement options. D. Nutrition to assist with nutritional needs. E. Rehabilitation nursing to assist and monitor placed underlying medical conditions and to assist with any type bowel or bladder management. 2. The patient's current medication will be continued. 3. The patient will be placed on standard fall precautions. 4. The patient's estimated length of stay is approximately 7-10 days. 5. Discuss this patient during care team staff meeting this week. TRANSINT:[id number] Voice Confirmation ID: [id number] DOCUMENT ID: [id number] BETY notes whether there has been none or any medical/functional change since admission: - No change since prescreen. HISTORY AND PHYSICAL [id number] BRYANT ESPANA attests patient continues to be appropriate for IRF: - Continues to be appropriate. MIMI MAXWELL MD at 1355 CC: [id number] DICTATION DATE: 01/28/18 1053 BOTTOM TURNER: 01/28/18 1255 ADM IN [place] [id number] [place] [id number]
[~2018-01-27 16:56] MED LIST changes: +ALBUTEROL2.5 MG/3 M INH; +IPRAT-ALBUT 0.5-3 ML INH
[2018-01-27 18:25] VITALS: BP 156/90
[2018-01-27 20:29] VITALS: BP 156/90; BMI 28.5
[2018-01-28 06:42] LABS: BASOPHILS 0.1 % (0-2); EOSINOPHILS 3.2 % (0-7); HEMATOCRIT 42.7 % (42.0-54.0); HEMOGLOBIN 14.4 g/dL (13.5-17.5); LYMPHOCYTES 11.3 % (15-50); MCH 31.4 pg (26.0-34.0); MCHC 33.7 g/dL (31.0-37.0); MCV 93.2 fL (80.0-100.0); MONOCYTES 13.1 % (2-11); NEUTROPHILS 71.3 % (40-80); PLATELET COUNT 200 10x3/uL (130-400); RBC 4.58 10x6/uL (4.20-6.10); RDW 12.9 % (11.5-14.5); WBC 6.8 10x3/uL (4.8-10.8)
[2018-01-28 06:55] LABS: ANION GAP 19.1 mmol/L (8-16); CALCIUM 8.8 mg/dL (8.5-10.1); CARBON DIOXIDE 25.1 mmol/L (21.0-32.0); CREATININE - SERUM 5.4 mg/dL (0.6-1.3); POTASSIUM - SERUM 4.2 mmol/L (3.5-5.1)
[2018-01-28 08:00] VITALS: BP 159/93
[2018-01-28 14:34] VITALS: Ht 182.9 cm; Wt 95.3 kg
[2018-01-28 19:09] VITALS: BP 136/85
[2018-01-29 08:00] VITALS: BP 119/74
[2018-01-29 08:11] LABS: BASOPHILS 0.2 % (0-2); HEMATOCRIT 37.8 % (42.0-54.0); HEMOGLOBIN 12.8 g/dL (13.5-17.5); IMMATURE GRANULOCYTES 0.9 % (0-5); LYMPHOCYTES 13.1 % (15-50); MCH 31.4 pg (26.0-34.0); MCHC 33.9 g/dL (31.0-37.0); MCV 92.6 fL (80.0-100.0); MEAN PLATELET VOLUME 12.1 fL (7.4-10.4); MONOCYTES 13.2 % (2-11); NEUTROPHILS 69.6 % (40-80); PLATELET COUNT 188 10x3/uL (130-400); RBC 4.08 10x6/uL (4.20-6.10); RDW 12.9 % (11.5-14.5); WBC 6.7 10x3/uL (4.8-10.8)
[2018-01-29 08:25] LABS: ANION GAP 17.4 mmol/L (8-16); CALCIUM 8.5 mg/dL (8.5-10.1); CARBON DIOXIDE 25.7 mmol/L (21.0-32.0); CREATININE - SERUM 5.6 mg/dL (0.6-1.3); POTASSIUM - SERUM 4.1 mmol/L (3.5-5.1)
[2018-01-29 22:07] VITALS: BP 131/86
[2018-01-30 08:00] VITALS: BP 135/90
[2018-01-30 19:09] VITALS: BP 133/83
[2018-01-31 06:46] LABS: BASOPHILS 0.2 % (0-2); EOSINOPHILS 4.9 % (0-7); HEMOGLOBIN 12.5 g/dL (13.5-17.5); IMMATURE GRANULOCYTES 1.3 % (0-5); LYMPHOCYTES 17.6 % (15-50); MCH 30.9 pg (26.0-34.0); MCHC 33.8 g/dL (31.0-37.0); MCV 91.4 fL (80.0-100.0); MONOCYTES 12.2 % (2-11); NEUTROPHILS 63.8 % (40-80); PLATELET COUNT 209 10x3/uL (130-400); RBC 4.05 10x6/uL (4.20-6.10); RDW 12.6 % (11.5-14.5)
[2018-01-31 07:14] LABS: ANION GAP 20.8 mmol/L (8-16); CALCIUM 8.1 mg/dL (8.5-10.1); CREATININE - SERUM 5.5 mg/dL (0.6-1.3); POTASSIUM - SERUM 3.8 mmol/L (3.5-5.1)
[2018-01-31 08:00] VITALS: BP 118/69
[2018-01-31 20:39] VITALS: BP 161/90
[2018-02-01 08:38] VITALS: BP 155/82
[2018-02-01 20:54] VITALS: BP 163/90
[2018-02-02 09:09] VITALS: BP 135/75
[2018-02-03 06:06] LABS: BASOPHILS 0.1 % (0-2); EOSINOPHILS 2.6 % (0-7); HEMATOCRIT 39.3 % (42.0-54.0); HEMOGLOBIN 13.4 g/dL (13.5-17.5); LYMPHOCYTES 10.2 % (15-50); MCH 31.5 pg (26.0-34.0); MCHC 34.1 g/dL (31.0-37.0); MCV 92.3 fL (80.0-100.0); MEAN PLATELET VOLUME 11.5 fL (7.4-10.4); MONOCYTES 10.7 % (2-11); NEUTROPHILS 75.4 % (40-80); PLATELET COUNT 216 10x3/uL (130-400); RBC 4.26 10x6/uL (4.20-6.10); RDW 13.3 % (11.5-14.5); WBC 6.9 10x3/uL (4.8-10.8)
[2018-02-03 06:27] LABS: ANION GAP 15.8 mmol/L (8-16); CALCIUM 8.4 mg/dL (8.5-10.1); CARBON DIOXIDE 25.1 mmol/L (21.0-32.0); CREATININE - SERUM 4.4 mg/dL (0.6-1.3)
[2018-02-03 06:28] LABS: POTASSIUM - SERUM 2.9 mmol/L (3.5-5.1)
[2018-02-03 08:00] VITALS: BP 156/87
[2018-02-03 19:54] VITALS: BP 136/94
[2018-02-04 08:00] VITALS: BP 143/99
[2018-02-04 19:48] VITALS: BP 147/99
[2018-02-05 06:48] LABS: BASOPHILS 0.1 % (0-2); EOSINOPHILS 0.3 % (0-7); HEMATOCRIT 39.6 % (42.0-54.0); HEMOGLOBIN 13.4 g/dL (13.5-17.5); LYMPHOCYTES 13.4 % (15-50); MCH 31.3 pg (26.0-34.0); MCHC 33.8 g/dL (31.0-37.0); MCV 92.5 fL (80.0-100.0); MEAN PLATELET VOLUME 11.9 fL (7.4-10.4); MONOCYTES 8.7 % (2-11); NEUTROPHILS 76.5 % (40-80); PLATELET COUNT 232 10x3/uL (130-400); RBC 4.28 10x6/uL (4.20-6.10); RDW 13.5 % (11.5-14.5); WBC 6.9 10x3/uL (4.8-10.8)
[2018-02-05 07:10] LABS: ANION GAP 20.2 mmol/L (8-16); CALCIUM 8.7 mg/dL (8.5-10.1); CARBON DIOXIDE 19.5 mmol/L (21.0-32.0); CREATININE - SERUM 4.5 mg/dL (0.6-1.3)
[2018-02-05 07:12] LABS: POTASSIUM - SERUM 4.7 mmol/L (3.5-5.1)
[2018-02-05 08:00] VITALS: BP 148/97
[2018-02-05 20:06] VITALS: BP 124/71
[2018-02-06 08:00] VITALS: BP 127/85
[2018-02-06 20:05] VITALS: BP 150/94
[2018-02-07 05:01] LABS: BASOPHILS 0.1 % (0-2); EOSINOPHILS 2.2 % (0-7); HEMATOCRIT 36.5 % (42.0-54.0); HEMOGLOBIN 12.3 g/dL (13.5-17.5); LYMPHOCYTES 14.2 % (15-50); MCH 30.9 pg (26.0-34.0); MCHC 33.7 g/dL (31.0-37.0); MCV 91.7 fL (80.0-100.0); MEAN PLATELET VOLUME 11.5 fL (7.4-10.4); MONOCYTES 11.2 % (2-11); NEUTROPHILS 71.3 % (40-80); PLATELET COUNT 226 10x3/uL (130-400); RBC 3.98 10x6/uL (4.20-6.10); RDW 13.3 % (11.5-14.5); WBC 7.3 10x3/uL (4.8-10.8)
[2018-02-07 05:13] LABS: ANION GAP 19.4 mmol/L (8-16); CALCIUM 7.9 mg/dL (8.5-10.1); CARBON DIOXIDE 20.4 mmol/L (21.0-32.0); POTASSIUM - SERUM 4.8 mmol/L (3.5-5.1)
[2018-02-07 08:00] VITALS: BP 146/95
[2018-02-07 19:00] VITALS: BP 141/87
[2018-02-08 06:40] LABS: ANION GAP 20.8 mmol/L (8-16); CALCIUM 8.2 mg/dL (8.5-10.1); CARBON DIOXIDE 19.6 mmol/L (21.0-32.0); CREATININE - SERUM 4.8 mg/dL (0.6-1.3); POTASSIUM - SERUM 4.4 mmol/L (3.5-5.1)
[2018-02-08 09:27] VITALS: BP 146/88
[2018-02-08 20:24] VITALS: BP 141/91
[2018-02-09 08:56] VITALS: BP 143/98
[2018-02-09 19:43] VITALS: BP 133/82
[2018-02-10 06:00] LABS: BASOPHILS 0.2 % (0-2); EOSINOPHILS 1.9 % (0-7); HEMATOCRIT 36.3 % (42.0-54.0); HEMOGLOBIN 12.1 g/dL (13.5-17.5); IMMATURE GRANULOCYTES 1.1 % (0-5); LYMPHOCYTES 14.4 % (15-50); MCH 30.9 pg (26.0-34.0); MCHC 33.3 g/dL (31.0-37.0); MCV 92.6 fL (80.0-100.0); MEAN PLATELET VOLUME 11.8 fL (7.4-10.4); MONOCYTES 10.5 % (2-11); NEUTROPHILS 71.9 % (40-80); PLATELET COUNT 212 10x3/uL (130-400); RBC 3.92 10x6/uL (4.20-6.10); WBC 6.5 10x3/uL (4.8-10.8)
[2018-02-10 06:14] LABS: ANION GAP 20.4 mmol/L (8-16); CALCIUM 8.4 mg/dL (8.5-10.1); CARBON DIOXIDE 21.3 mmol/L (21.0-32.0); CREATININE - SERUM 4.9 mg/dL (0.6-1.3); POTASSIUM - SERUM 3.7 mmol/L (3.5-5.1)
[2018-02-10 08:00] VITALS: BP 134/80
[2018-02-10 20:51] VITALS: BP 143/79
[2018-02-11 07:59] VITALS: BP 126/74
[2018-02-11 19:23] VITALS: BP 126/75
[2018-02-12 07:17] LABS: BASOPHILS 0 % (0-2); EOSINOPHILS 2.4 % (0-7); HEMATOCRIT 35.4 % (42.0-54.0); HEMOGLOBIN 11.6 g/dL (13.5-17.5); LYMPHOCYTES 12.6 % (15-50); MCH 30.9 pg (26.0-34.0); MCHC 32.8 g/dL (31.0-37.0); MCV 94.4 fL (80.0-100.0); MEAN PLATELET VOLUME 11.8 fL (7.4-10.4); MONOCYTES 13.8 % (2-11); NEUTROPHILS 70.2 % (40-80); PLATELET COUNT 201 10x3/uL (130-400); RBC 3.75 10x6/uL (4.20-6.10); RDW 14.4 % (11.5-14.5); WBC 7.1 10x3/uL (4.8-10.8)
[2018-02-12 07:44] LABS: ANION GAP 17.6 mmol/L (8-16); CALCIUM 8.3 mg/dL (8.5-10.1); CARBON DIOXIDE 22.9 mmol/L (21.0-32.0); CREATININE - SERUM 5.3 mg/dL (0.6-1.3); POTASSIUM - SERUM 3.5 mmol/L (3.5-5.1)
[2018-02-12 08:28] VITALS: BP 117/76
[2018-02-12 20:05] VITALS: BP 155/83
[2018-02-13 08:00] VITALS: BP 144/77
[2018-02-13] MEDS ORDERED: IPRAT-ALBUT 0.5-3 ML UPD (12:27)
[2018-02-13] MEDS ORDERED: K-DUR20 MEQ PO (12:28)
[2018-02-13] MEDS ORDERED: LASIX40 MG PO (12:28)
[2018-02-13] MEDS ORDERED: LUNESTA2 M1 PO (12:28)
== END 2018-02-13 14:00 | DRG 91 ==
LOC: D.REHAB 16:56
PROVIDERS: Emergency Medicine; Internal Medicine
DX: G72.89 Other specified myopathies (principal); I21.4 Non-ST elevation (NSTEMI) myocardial infarction; I50.23 Acute on chronic systolic (congestive) heart failure; I13.0 Hypertensive heart and chronic kidney disease with heart failure and stage 1 through stage 4 chronic kidney disease, or unspecified chronic kidney disease; J81.1 Chronic pulmonary edema; N18.9 Chronic kidney disease, unspecified; E11.22 Type 2 diabetes mellitus with diabetic chronic kidney disease; E78.5 Hyperlipidemia, unspecified; F03.90 Unspecified dementia, unspecified severity, without behavioral disturbance, psychotic disturbance, mood disturbance, and anxiety; I25.10 Atherosclerotic heart disease of native coronary artery without angina pectoris; E87.5 Hyperkalemia; D63.1 Anemia in chronic kidney disease; E87.70 Fluid overload, unspecified; Z91.81 History of falling; Z85.46 Personal history of malignant neoplasm of prostate; E11.21 Type 2 diabetes mellitus with diabetic nephropathy; E11.65 Type 2 diabetes mellitus with hyperglycemia

== ENCOUNTER → 2018-02-21 15:05 | Outpatient (CLI) | payer MEDICARE ==
[2018-01-28 14:34] VITALS: BMI 28.5
[~2018-02-21 15:05] MED LIST changes: +IPRAT-ALBUT 0.5-3 ML UPD; +K-DUR20 MEQ PO; +LASIX40 MG PO; +LUNESTA2 M1 PO
== END | disposition home or self-care (01) ==
LOC: D.RAD 15:05
DX: R06.02 Shortness of breath (principal)

== ENCOUNTER 2018-03-01 07:49 | Inpatient (IN) | payer MEDICARE ==
[~2018-03-01] VITALS: Ht 182.9 cm; Wt 158.8 kg
--- NOTE | ~2018-03-01 | OP ---
PATIENT NAME: DONALD ESPANA MEDICAL RECORD: [id number] :38 LOCATION:D. D.2110 ADMISSION DATE:03/01/18 SURGEON: DONALD MEEKS MD DATE OF OPERATION: 03/10/2018 PREOPERATIVE DIAGNOSIS: End-stage renal disease without access for hemodialysis. POSTOPERATIVE DIAGNOSES: End-stage renal disease without access for hemodialysis. PROCEDURES: 1. Placement of right 19-cm HemoSplit catheter under ultrasonographic and fluoroscopic guidance. 2. Immediate surgeon interpretation of the fluoroscopic images. SURGEON: Donald Meeks MD LICENSED GUIDE: None. BLOOD LOSS: Minimal. ANESTHESIA: General. COMPLICATIONS: None. No radiologist was present for this procedure. Static fluoroscopic images were obtained and are kept in the patient's chart. No ultrasonographic images were captured. The surgeon interpretation of the radiographic images is dictated within the body of this operative note. OPERATIVE COURSE: The patient was conveyed to the operating room electively on 03/10/2018. General anesthesia was induced by the anesthesia staff. The right neck and right chest were sterilely prepped and draped. Under ultrasonographic guidance, I percutaneously accessed the right internal jugular vein in an antegrade fashion. A guidewire passed easily. A small skin jennifer was accomplished. A counterincision was accomplished in the right anterior superior chest. I tunneled a 19-cm HemoSplit catheter, which is a tunneled cuffed dual-lumen hemodialysis catheter, from the chest incision to the neck incision. Under fluoroscopic guidance, I dilated to a larger size over the guidewire. A dilator sheath was advanced. The dilator and wire were removed. Through the peel-away sheath, the tips of the HemoSplit catheter were advanced. The Peel-Away sheath was then removed. I then pulled back on the hub of the HemoSplit catheter in order to seat the cuff in the subcutaneous tissues. An image was obtained over the mediastinum. It revealed that the longest HemoSplit catheter tip appeared to be at the cavoatrial junction. Another image was obtained over the right lung apex. There was no apparent pneumothorax. No apparent kinking or twisting of the HemoSplit catheter. No radiographic evidence of a complication. The neck incision was closed with a horizontal mattress of 3-0 Vicryl sutures. The hub of the HemoSplit catheter was sutured to the underlying skin with 2-0 nylons. Both lumens flushed easily and aspirated dark, nonpulsatile blood. I then topped off both lumens of the HemoSplit catheter with appropriate amount of concentrated heparin. Sterile dressings were applied. OPERATIVE REPORT [id number] DONALD ESPANA He was extubated and conveyed to post-anesthesia care unit. TRANSINT:[id number] Voice Confirmation ID: [id number] DOCUMENT ID: [id number] DONALD MEEKS MD at 1227 CC: [id number] DICTATION DATE: 03/10/18 1439 WEIGHTER: 03/10/181957 ADM IN [facility] [address] [place] [address]
--- NOTE | ~2018-03-01 | CN ---
PATIENT NAME:BRYANT ESPANA MEDICAL RECORD: [id number] : 38 LOCATION:DDameon D.2110 ADMIT DATE: 03/01/18 ACCOUNT: [id number] CONSULTING PHYSICIAN: CONRAD DYER MD REFERRING PHYSICIAN: ALBA GAMBLE MD DATE OF CONSULTATION: 03/02/2018 HISTORY OF PRESENT ILLNESS: A 77-year-old gentleman, [facility] resident of [facility], severe cardiomyopathy, known history of coronary artery disease, and stage IV chronic renal insufficiency, transferred with the worsening mental status, shortness of breath. The patient is somewhat a poor historian. He reports breathing better when he wears his oxygen. He has elevated BNP as well as marked elevated creatinine. We are asked to see him concerning his cardiovascular status. PAST MEDICAL HISTORY: Includes; 1. History of coronary artery disease. 2. Cardiomyopathy, severe with EF 15% to 20%. 3. Hypertension. 4. Hyperlipidemia. 5. Diabetes mellitus. ALLERGIES: None known. MEDICATIONS: Include Flomax 0.4 every day, Proventil 2.5 q.i.d. p.r.n., DuoNeb 3 mL q.i.d. p.r.n., Imdur 10 mg p.o. t.i.d., atorvastatin 10 mg p.o. at bedtime, Lunesta 2 mg at bedtime, Lasix 40 every day, potassium supplementation, Glucotrol 5 mg b.i.d. SOCIAL HISTORY: Nonsmoker and nondrinker. He is resident of [facility] after stay in rehab secondary to [id number] systolic dysfunction as well as chronic renal insufficiency. REVIEW OF SYSTEMS: Unobtainable due to the patient factors. PHYSICAL EXAMINATION: GENERAL: Pleasantly demented gentleman, in no acute distress. VITAL SIGNS: Blood pressure 149/92 and pulse 106. HEENT: Normocephalic and atraumatic. NECK: No bruits noted. HEART: Regular. II/ ejection murmur. S3 gallop is noted. LUNGS: Show fairly good air excursion. ABDOMEN: Soft and nontender. EXTREMITIES: Pulses 1+. There is no edema. IMPRESSION: Severe cardiomyopathy. Obviously, limited options given underlying renal insufficiency, etc. We will add low-dose carvedilol to hopefully provide inotropic support. Long-term prognosis does not appear good for this gentleman. TRANSINT:[id number] Voice Confirmation ID: [id number] DOCUMENT ID: [id number] CONSULT REPORT [id number] BRYANT ESPANA,CONRAD Valdez MD at 0847 CC: [id number] DICTATION DATE: 03/02/18 1051 DISK GRINDER: 03/02/18 1428 ADM IN [place] [id number] [place] [address]
[2018-03-01 08:40] LABS: BASOPHILS 0 % (0-2); EOSINOPHILS 2.5 % (0-7); HEMATOCRIT 36.2 % (42.0-54.0); HEMOGLOBIN 11.5 g/dL (13.5-17.5); IMMATURE GRANULOCYTES 0.5 % (0-5); LYMPHOCYTES 10.3 % (15-50); MCH 31.2 pg (26.0-34.0); MCHC 31.8 g/dL (31.0-37.0); MCV 98.1 fL (80.0-100.0); MEAN PLATELET VOLUME 12.2 fL (7.4-10.4); MONOCYTES 13.3 % (2-11); NEUTROPHILS 73.4 % (40-80); RBC 3.69 10x6/uL (4.20-6.10); RDW 15.3 % (11.5-14.5); WBC 5.7 10x3/uL (4.8-10.8)
[2018-03-01 08:41] LABS: PLATELET COUNT 154 10x3/uL (130-400)
[2018-03-01 08:52] LABS: ALBUMIN 2.4 g/dL (3.4-5.0); BILIRUBIN - TOTAL 0.39 mg/dL (0.2-1.3); CALCIUM 8.4 mg/dL (8.5-10.1); CARBON DIOXIDE 22.1 mmol/L (21.0-32.0); CREATININE - SERUM 6.7 mg/dL (0.6-1.3); POTASSIUM - SERUM 5.1 mmol/L (3.5-5.1); PROTEIN - SERUM 6.9 g/dL (6.4-8.2)
[2018-03-01 09:07] LABS: MAGNESIUM - SERUM 2.2 mg/dL (1.8-2.4)
[2018-03-01 09:12] LABS: PHOSPHOROUS 9.3 mg/dL (2.5-4.9)
[2018-03-01 09:16] LABS: TROPONIN-I 0.065 ng/mL (0.000-0.060)
[2018-03-01 09:17] LABS: APPEARANCE CLEAR (CLEAR); BILIRUBIN NEGATIVE (NEGATIVE); COLOR YELLOW (YELLOW); GLUCOSE NEGATIVE (NEGATIVE); KETONE NEGATIVE (NEGATIVE); NITRITE NEGATIVE (NEGATIVE); PROTEIN 2+ mg/dL (NEGATIVE); UROBILINOGEN NORMAL (NORMAL)
[2018-03-01 09:19] LABS: BACTERIA FEW /hpf (NONE SEEN); EPITHELIAL CELLS 0-5 /hpf (0-5); RED CELLS - URINE 0-5 /hpf (0-5); WHITE CELLS - URINE NSEEN /hpf (0-5)
[2018-03-01 15:55] VITALS: BP 141/83
[2018-03-01 17:55] VITALS: BMI 47.6
[2018-03-01 20:53] VITALS: BP 137/76
[2018-03-02 00:58] VITALS: BP 128/82
[2018-03-02 04:54] VITALS: BP 132/83
[2018-03-02 06:15] LABS: BASOPHILS 0.2 % (0-2); EOSINOPHILS 2.3 % (0-7); HEMATOCRIT 34.1 % (42.0-54.0); HEMOGLOBIN 10.9 g/dL (13.5-17.5); IMMATURE GRANULOCYTES 0.5 % (0-5); MCH 31.1 pg (26.0-34.0); MCV 97.2 fL (80.0-100.0); MEAN PLATELET VOLUME 12.3 fL (7.4-10.4); MONOCYTES 14.9 % (2-11); NEUTROPHILS 75.1 % (40-80); PLATELET COUNT 149 10x3/uL (130-400); RBC 3.51 10x6/uL (4.20-6.10); RDW 15.5 % (11.5-14.5)
[2018-03-02 06:58] LABS: ANION GAP 21.2 mmol/L (8-16); CALCIUM 8.2 mg/dL (8.5-10.1); CARBON DIOXIDE 21.2 mmol/L (21.0-32.0); CHOL - HDL RATIO 2.8 ratio (2.3-4.9); CREATININE - SERUM 6.7 mg/dL (0.6-1.3); LDL-HDL RATIO 1.4 ratio (1.5-3.5); POTASSIUM - SERUM 4.4 mmol/L (3.5-5.1); THYROID STIMULATING HORMONE 2.62 uIU/mL (0.36-3.74)
[2018-03-02 08:03] VITALS: BP 149/92
[2018-03-02 12:13] VITALS: BP 144/83
[2018-03-02 16:32] VITALS: BP 118/74
[2018-03-02 21:34] VITALS: BP 152/83
[2018-03-03 01:32] VITALS: BP 133/83
[2018-03-03 07:09] VITALS: BP 139/89
[2018-03-03 08:26] VITALS: BP 142/90
[2018-03-03 10:14] LABS: BASOPHILS 0.2 % (0-2); EOSINOPHILS 2.3 % (0-7); HEMATOCRIT 34.3 % (42.0-54.0); IMMATURE GRANULOCYTES 0.5 % (0-5); LYMPHOCYTES 7.4 % (15-50); MCHC 32.1 g/dL (31.0-37.0); MCV 96.6 fL (80.0-100.0); MEAN PLATELET VOLUME 11.8 fL (7.4-10.4); MONOCYTES 12.4 % (2-11); NEUTROPHILS 77.2 % (40-80); PLATELET COUNT 134 10x3/uL (130-400); RBC 3.55 10x6/uL (4.20-6.10); RDW 15.2 % (11.5-14.5); WBC 5.6 10x3/uL (4.8-10.8)
[2018-03-03 10:22] LABS: ANION GAP 18.7 mmol/L (8-16); CARBON DIOXIDE 24.6 mmol/L (21.0-32.0); CREATININE - SERUM 6.6 mg/dL (0.6-1.3); POTASSIUM - SERUM 4.3 mmol/L (3.5-5.1)
[2018-03-03 12:34] VITALS: BP 101/73
[2018-03-03 13:28] VITALS: BMI 47.5
[2018-03-03 15:45] VITALS: BP 148/91
[2018-03-03 21:09] VITALS: BP 140/73
[2018-03-04 00:49] VITALS: BP 132/78
[2018-03-04 05:12] VITALS: BP 134/79
[2018-03-04 08:14] VITALS: BP 135/79
[2018-03-04 11:53] VITALS: BP 143/86
[2018-03-04 17:06] VITALS: BP 111/75
[2018-03-04 21:09] VITALS: BP 139/80
[2018-03-05 05:54] VITALS: BP 147/90
[2018-03-05 06:48] LABS: BASOPHILS 0 % (0-2); HEMATOCRIT 35.3 % (42.0-54.0); HEMOGLOBIN 11.4 g/dL (13.5-17.5); IMMATURE GRANULOCYTES 0.4 % (0-5); LYMPHOCYTES 10.5 % (15-50); MCH 31.1 pg (26.0-34.0); MCHC 32.3 g/dL (31.0-37.0); MCV 96.4 fL (80.0-100.0); MEAN PLATELET VOLUME 12.7 fL (7.4-10.4); MONOCYTES 10.9 % (2-11); NEUTROPHILS 75.2 % (40-80); PLATELET COUNT 143 10x3/uL (130-400); RBC 3.66 10x6/uL (4.20-6.10); RDW 15.3 % (11.5-14.5); WBC 5.7 10x3/uL (4.8-10.8)
[2018-03-05 07:25] LABS: ANION GAP 16.4 mmol/L (8-16); CALCIUM 9.3 mg/dL (8.5-10.1); CARBON DIOXIDE 25.3 mmol/L (21.0-32.0); CREATININE - SERUM 6.2 mg/dL (0.6-1.3); POTASSIUM - SERUM 3.7 mmol/L (3.5-5.1)
[2018-03-05 08:52] VITALS: BP 145/79
[2018-03-05 12:47] VITALS: BP 142/82
[2018-03-05 18:08] VITALS: BP 127/82
[2018-03-05 20:00] VITALS: BP 141/89
[2018-03-06] VITALS: BP 144/84
[2018-03-06 04:00] VITALS: BP 154/87
[2018-03-06 08:39] VITALS: BP 145/86
[2018-03-06 09:16] LABS: BASOPHILS 0 % (0-2); EOSINOPHILS 2.6 % (0-7); HEMATOCRIT 36.1 % (42.0-54.0); HEMOGLOBIN 11.7 g/dL (13.5-17.5); IMMATURE GRANULOCYTES 0.8 % (0-5); LYMPHOCYTES 10.3 % (15-50); MCH 31.4 pg (26.0-34.0); MCHC 32.4 g/dL (31.0-37.0); MCV 96.8 fL (80.0-100.0); MEAN PLATELET VOLUME 12.2 fL (7.4-10.4); MONOCYTES 14.6 % (2-11); NEUTROPHILS 71.7 % (40-80); PLATELET COUNT 139 10x3/uL (130-400); RBC 3.73 10x6/uL (4.20-6.10); RDW 15.2 % (11.5-14.5); WBC 5.1 10x3/uL (4.8-10.8)
[2018-03-06 09:22] LABS: CALCIUM 9.4 mg/dL (8.5-10.1); CARBON DIOXIDE 28.5 mmol/L (21.0-32.0); CREATININE - SERUM 5.9 mg/dL (0.6-1.3); POTASSIUM - SERUM 3.5 mmol/L (3.5-5.1)
[2018-03-06 11:57] VITALS: BP 130/81
[2018-03-06 15:54] VITALS: BP 138/84
[2018-03-06 20:00] VITALS: BP 133/80
[2018-03-07] VITALS: BP 140/82
[2018-03-07 04:00] VITALS: BP 128/66
[2018-03-07 05:36] LABS: BASOPHILS 0 % (0-2); EOSINOPHILS 2.8 % (0-7); HEMATOCRIT 35.5 % (42.0-54.0); HEMOGLOBIN 11.4 g/dL (13.5-17.5); IMMATURE GRANULOCYTES 0.4 % (0-5); LYMPHOCYTES 11.1 % (15-50); MCH 31.1 pg (26.0-34.0); MCHC 32.1 g/dL (31.0-37.0); MCV 96.7 fL (80.0-100.0); MEAN PLATELET VOLUME 12.4 fL (7.4-10.4); MONOCYTES 14.5 % (2-11); NEUTROPHILS 71.2 % (40-80); PLATELET COUNT 134 10x3/uL (130-400); RBC 3.67 10x6/uL (4.20-6.10); RDW 15.3 % (11.5-14.5); WBC 5.1 10x3/uL (4.8-10.8)
[2018-03-07 05:53] LABS: ANION GAP 13.1 mmol/L (8-16); CALCIUM 9.3 mg/dL (8.5-10.1); CARBON DIOXIDE 29.3 mmol/L (21.0-32.0); CREATININE - SERUM 6.4 mg/dL (0.6-1.3); POTASSIUM - SERUM 3.4 mmol/L (3.5-5.1)
[2018-03-07 08:16] VITALS: BP 151/76
[2018-03-07 11:59] VITALS: BP 132/76
[2018-03-07 16:04] VITALS: BP 141/85
[2018-03-07 20:44] VITALS: BP 130/72
[2018-03-08 01:11] VITALS: BP 143/81
[2018-03-08 05:45] LABS: BASOPHILS 0.2 % (0-2); EOSINOPHILS 1.9 % (0-7); HEMATOCRIT 36.3 % (42.0-54.0); HEMOGLOBIN 11.5 g/dL (13.5-17.5); IMMATURE GRANULOCYTES 0.5 % (0-5); LYMPHOCYTES 10.7 % (15-50); MCH 30.7 pg (26.0-34.0); MCHC 31.7 g/dL (31.0-37.0); MCV 97.1 fL (80.0-100.0); MEAN PLATELET VOLUME 12.4 fL (7.4-10.4); MONOCYTES 12.3 % (2-11); NEUTROPHILS 74.4 % (40-80); PLATELET COUNT 134 10x3/uL (130-400); RBC 3.74 10x6/uL (4.20-6.10); RDW 15.3 % (11.5-14.5); WBC 5.7 10x3/uL (4.8-10.8)
[2018-03-08 05:46] VITALS: BP 124/77
[2018-03-08 05:51] LABS: ANION GAP 16.2 mmol/L (8-16); CALCIUM 9.3 mg/dL (8.5-10.1); CARBON DIOXIDE 26.2 mmol/L (21.0-32.0); CREATININE - SERUM 6.3 mg/dL (0.6-1.3); POTASSIUM - SERUM 3.4 mmol/L (3.5-5.1)
[2018-03-08 08:26] VITALS: BP 122/82
[2018-03-08 11:51] VITALS: BP 129/81
[2018-03-08 16:33] VITALS: BP 141/72
[2018-03-08 20:46] VITALS: BP 132/84
[2018-03-09 01:06] VITALS: BP 124/73
[2018-03-09 05:28] LABS: BASOPHILS 0.2 % (0-2); EOSINOPHILS 2.4 % (0-7); HEMATOCRIT 37.2 % (42.0-54.0); HEMOGLOBIN 11.8 g/dL (13.5-17.5); IMMATURE GRANULOCYTES 0.6 % (0-5); LYMPHOCYTES 10.3 % (15-50); MCH 30.9 pg (26.0-34.0); MCHC 31.7 g/dL (31.0-37.0); MCV 97.4 fL (80.0-100.0); MEAN PLATELET VOLUME 12.7 fL (7.4-10.4); MONOCYTES 14.9 % (2-11); NEUTROPHILS 71.6 % (40-80); PLATELET COUNT 124 10x3/uL (130-400); RBC 3.82 10x6/uL (4.20-6.10); RDW 15.2 % (11.5-14.5); WBC 5.4 10x3/uL (4.8-10.8)
[2018-03-09 05:50] LABS: ANION GAP 14.7 mmol/L (8-16); CALCIUM 10.2 mg/dL (8.5-10.1); CARBON DIOXIDE 27.8 mmol/L (21.0-32.0); CREATININE - SERUM 6.1 mg/dL (0.6-1.3); POTASSIUM - SERUM 3.5 mmol/L (3.5-5.1)
[2018-03-09 06:10] VITALS: BP 123/73
[2018-03-09 09:25] VITALS: BP 114/78
[2018-03-09 12:37] VITALS: BP 137/71
[2018-03-09 17:32] VITALS: BP 135/79
[2018-03-09 18:28] VITALS: Ht 182.9 cm; Wt 158.8 kg
[2018-03-09 20:00] VITALS: BP 131/82
[2018-03-10] VITALS: BP 132/79
[2018-03-10 04:00] VITALS: BP 136/70
[2018-03-10 06:00] LABS: ANION GAP 12.3 mmol/L (8-16); CALCIUM 9.2 mg/dL (8.5-10.1); CARBON DIOXIDE 30.9 mmol/L (21.0-32.0); CREATININE - SERUM 6.4 mg/dL (0.6-1.3); POTASSIUM - SERUM 3.2 mmol/L (3.5-5.1)
[2018-03-10 06:01] LABS: BASOPHILS 0.2 % (0-2); EOSINOPHILS 4.1 % (0-7); HEMATOCRIT 35.1 % (42.0-54.0); IMMATURE GRANULOCYTES 0.4 % (0-5); LYMPHOCYTES 15.7 % (15-50); MCH 30.6 pg (26.0-34.0); MCHC 31.3 g/dL (31.0-37.0); MCV 97.5 fL (80.0-100.0); MEAN PLATELET VOLUME 12.8 fL (7.4-10.4); MONOCYTES 11.8 % (2-11); NEUTROPHILS 67.8 % (40-80); PLATELET COUNT 116 10x3/uL (130-400); RDW 15.2 % (11.5-14.5); WBC 5.1 10x3/uL (4.8-10.8)
[2018-03-10 08:11] VITALS: BP 136/77
[2018-03-10 12:24] VITALS: BP 135/69
[2018-03-10 20:00] VITALS: BP 131/60
[2018-03-11 06:10] LABS: BASOPHILS 0 % (0-2); EOSINOPHILS 1.9 % (0-7); HEMATOCRIT 35.9 % (42.0-54.0); HEMOGLOBIN 11.2 g/dL (13.5-17.5); IMMATURE GRANULOCYTES 0.4 % (0-5); LYMPHOCYTES 7.6 % (15-50); MCH 30.9 pg (26.0-34.0); MCHC 31.2 g/dL (31.0-37.0); MCV 99.2 fL (80.0-100.0); MEAN PLATELET VOLUME 12.8 fL (7.4-10.4); MONOCYTES 13.6 % (2-11); NEUTROPHILS 76.5 % (40-80); PLATELET COUNT 112 10x3/uL (130-400); RBC 3.62 10x6/uL (4.20-6.10); RDW 15.5 % (11.5-14.5); WBC 5.4 10x3/uL (4.8-10.8)
[2018-03-11 06:28] LABS: ANION GAP 14.7 mmol/L (8-16); CALCIUM 8.5 mg/dL (8.5-10.1); CARBON DIOXIDE 28.8 mmol/L (21.0-32.0); CREATININE - SERUM 6.4 mg/dL (0.6-1.3); POTASSIUM - SERUM 3.5 mmol/L (3.5-5.1)
[2018-03-11 12:35] VITALS: BP 132/54
[2018-03-11 15:47] VITALS: BP 127/65
[2018-03-11 20:00] VITALS: BP 118/71
[2018-03-12] VITALS: BP 155/86
[2018-03-12 04:00] VITALS: BP 138/82
[2018-03-12 06:18] LABS: BASOPHILS 0 % (0-2); EOSINOPHILS 1.1 % (0-7); HEMATOCRIT 35.5 % (42.0-54.0); HEMOGLOBIN 11.3 g/dL (13.5-17.5); IMMATURE GRANULOCYTES 0.3 % (0-5); LYMPHOCYTES 10.9 % (15-50); MCH 30.9 pg (26.0-34.0); MCHC 31.8 g/dL (31.0-37.0); MEAN PLATELET VOLUME 12.8 fL (7.4-10.4); MONOCYTES 13.4 % (2-11); NEUTROPHILS 74.3 % (40-80); PLATELET COUNT 109 10x3/uL (130-400); RBC 3.66 10x6/uL (4.20-6.10); RDW 15.2 % (11.5-14.5); WBC 6.4 10x3/uL (4.8-10.8)
[2018-03-12 06:40] LABS: ANION GAP 15.2 mmol/L (8-16); CALCIUM 8.3 mg/dL (8.5-10.1); CARBON DIOXIDE 26.9 mmol/L (21.0-32.0); CREATININE - SERUM 5.2 mg/dL (0.6-1.3); POTASSIUM - SERUM 3.1 mmol/L (3.5-5.1)
[2018-03-12 08:40] VITALS: BP 147/72
[2018-03-12 16:15] VITALS: BP 133/68
[2018-03-12 20:04] VITALS: BP 142/73
[2018-03-13 00:37] VITALS: BP 150/66
[2018-03-13 06:08] LABS: BASOPHILS 0.1 % (0-2); EOSINOPHILS 1.5 % (0-7); HEMATOCRIT 35.8 % (42.0-54.0); HEMOGLOBIN 11.6 g/dL (13.5-17.5); IMMATURE GRANULOCYTES 0.4 % (0-5); LYMPHOCYTES 9.4 % (15-50); MCH 30.9 pg (26.0-34.0); MCHC 32.4 g/dL (31.0-37.0); MCV 95.5 fL (80.0-100.0); MEAN PLATELET VOLUME 12.3 fL (7.4-10.4); MONOCYTES 15.2 % (2-11); NEUTROPHILS 73.4 % (40-80); PLATELET COUNT 111 10x3/uL (130-400); RBC 3.75 10x6/uL (4.20-6.10); RDW 15.1 % (11.5-14.5); WBC 7.1 10x3/uL (4.8-10.8)
[2018-03-13 06:21] VITALS: BP 131/52
[2018-03-13 06:34] LABS: CALCIUM 8.5 mg/dL (8.5-10.1); CARBON DIOXIDE 28.4 mmol/L (21.0-32.0); CREATININE - SERUM 4.1 mg/dL (0.6-1.3)
[2018-03-13 06:35] LABS: ANION GAP 14.6 mmol/L (8-16)
[2018-03-13 08:50] VITALS: BP 152/78
[2018-03-13 12:03] VITALS: BP 139/76
[2018-03-13 15:28] VITALS: BP 143/76
[2018-03-13 20:38] VITALS: BP 125/72
[2018-03-14 00:05] VITALS: BP 126/68
[2018-03-14 04:39] VITALS: BP 102/66
[2018-03-14 05:53] LABS: RBC 3.97 10x6/uL (4.20-6.10); WBC 6.7 10x3/uL (4.8-10.8)
[2018-03-14 05:54] LABS: BASOPHILS 0.1 % (0-2); EOSINOPHILS 2.5 % (0-7); HEMATOCRIT 38.3 % (42.0-54.0); HEMOGLOBIN 12.3 g/dL (13.5-17.5); IMMATURE GRANULOCYTES 0.4 % (0-5); LYMPHOCYTES 10.2 % (15-50); MCHC 32.1 g/dL (31.0-37.0); MCV 96.5 fL (80.0-100.0); MEAN PLATELET VOLUME 12.5 fL (7.4-10.4); MONOCYTES 18.7 % (2-11); NEUTROPHILS 68.1 % (40-80); PLATELET COUNT 111 10x3/uL (130-400); RDW 15.2 % (11.5-14.5)
[2018-03-14 05:56] LABS: ANION GAP 11.7 mmol/L (8-16); CALCIUM 8.9 mg/dL (8.5-10.1); CARBON DIOXIDE 30.7 mmol/L (21.0-32.0); CREATININE - SERUM 3.6 mg/dL (0.6-1.3); POTASSIUM - SERUM 3.4 mmol/L (3.5-5.1)
[2018-03-14 08:02] VITALS: BP 123/68
[2018-03-14 15:19] VITALS: BP 123/59
[2018-03-14 20:33] VITALS: BP 116/60
[2018-03-15 01:35] VITALS: BP 132/71
[2018-03-15 05:02] LABS: BASOPHILS 0.2 % (0-2); EOSINOPHILS 3.2 % (0-7); HEMATOCRIT 40.4 % (42.0-54.0); HEMOGLOBIN 13.1 g/dL (13.5-17.5); IMMATURE GRANULOCYTES 0.5 % (0-5); LYMPHOCYTES 14.3 % (15-50); MCH 31.2 pg (26.0-34.0); MCHC 32.4 g/dL (31.0-37.0); MCV 96.2 fL (80.0-100.0); MEAN PLATELET VOLUME 12.3 fL (7.4-10.4); MONOCYTES 17.8 % (2-11); PLATELET COUNT 122 10x3/uL (130-400); RDW 15.3 % (11.5-14.5); WBC 6.3 10x3/uL (4.8-10.8)
[2018-03-15 05:30] LABS: ANION GAP 9.1 mmol/L (8-16); CALCIUM 8.8 mg/dL (8.5-10.1); CARBON DIOXIDE 33.4 mmol/L (21.0-32.0); CREATININE - SERUM 3.7 mg/dL (0.6-1.3); POTASSIUM - SERUM 3.5 mmol/L (3.5-5.1)
[2018-03-15 05:50] VITALS: BP 167/68
[2018-03-15 08:25] VITALS: BP 124/61
[2018-03-15 11:52] VITALS: BP 151/67
[2018-03-15 15:53] VITALS: BP 131/65
[2018-03-15 20:34] VITALS: BP 125/68
[2018-03-16 01:31] VITALS: BP 108/69
[2018-03-16 05:43] VITALS: BP 122/62
[2018-03-16 06:57] LABS: BASOPHILS 0.1 % (0-2); EOSINOPHILS 2.5 % (0-7); HEMATOCRIT 38.7 % (42.0-54.0); HEMOGLOBIN 12.7 g/dL (13.5-17.5); IMMATURE GRANULOCYTES 0.6 % (0-5); MCH 31.4 pg (26.0-34.0); MCHC 32.8 g/dL (31.0-37.0); MCV 95.8 fL (80.0-100.0); MEAN PLATELET VOLUME 12.1 fL (7.4-10.4); MONOCYTES 17.5 % (2-11); NEUTROPHILS 67.3 % (40-80); PLATELET COUNT 129 10x3/uL (130-400); RBC 4.04 10x6/uL (4.20-6.10); WBC 7.7 10x3/uL (4.8-10.8)
[2018-03-16 07:13] LABS: ANION GAP 12.6 mmol/L (8-16); CALCIUM 9.2 mg/dL (8.5-10.1); CARBON DIOXIDE 32.8 mmol/L (21.0-32.0); CREATININE - SERUM 4.9 mg/dL (0.6-1.3); POTASSIUM - SERUM 3.4 mmol/L (3.5-5.1)
[2018-03-16 10:02] VITALS: BP 116/65
[2018-03-16 13:18] VITALS: BP 108/62
[2018-03-16 16:17] VITALS: BP 111/70
[2018-03-16 20:00] VITALS: BP 124/63
[2018-03-17 04:00] VITALS: BP 133/72
[2018-03-17 08:53] VITALS: BP 122/64
[2018-03-17 20:00] VITALS: BP 131/70
[2018-03-18] VITALS: BP 165/69
[2018-03-18 04:00] VITALS: BP 132/70
[2018-03-18 07:59] VITALS: BP 127/61
[2018-03-18 11:19] LABS: HEP B CORE AB TOTAL Negative (Negative); HEPATITIS C ANTIBODY <0.1 (0.0-0.9)
[2018-03-18 11:48] VITALS: BP 137/74
[2018-03-18 15:46] VITALS: BP 139/71
[2018-03-18 20:28] VITALS: BP 109/67
[2018-03-19 01:30] VITALS: BP 129/71
[2018-03-19 04:00] VITALS: BP 121/64
[2018-03-19 07:44] VITALS: BP 131/71
[2018-03-19 15:24] VITALS: BP 154/79
[2018-03-19 20:00] VITALS: BP 130/69
[2018-03-20 00:54] VITALS: BP 147/66
[2018-03-20 04:00] VITALS: BP 157/64
[2018-03-20 08:59] VITALS: BP 116/64
[2018-03-20 12:13] VITALS: BP 122/67
[2018-03-20 15:43] VITALS: BP 128/71
[2018-03-20 21:08] VITALS: BP 109/64
[2018-03-21 01:39] VITALS: BP 113/60
[2018-03-21 06:14] VITALS: BP 120/61
[2018-03-21 08:51] VITALS: BP 111/60
[2018-03-21 09:08] LABS: HEMOGLOBIN 12.6 g/dL (13.5-17.5); MCH 31.4 pg (26.0-34.0); MCHC 33.2 g/dL (31.0-37.0); MCV 94.8 fL (80.0-100.0); MEAN PLATELET VOLUME 12.1 fL (7.4-10.4); RBC 4.01 10x6/uL (4.20-6.10); RDW 15.1 % (11.5-14.5); WBC 6.8 10x3/uL (4.8-10.8)
[2018-03-21 09:09] LABS: PLATELET COUNT 159 10x3/uL (130-400)
[2018-03-21 09:13] LABS: ANION GAP 11.1 mmol/L (8-16); CALCIUM 10.3 mg/dL (8.5-10.1); CARBON DIOXIDE 30.4 mmol/L (21.0-32.0); CREATININE - SERUM 5.9 mg/dL (0.6-1.3); POTASSIUM - SERUM 3.5 mmol/L (3.5-5.1)
[2018-03-21 10:53] LABS: EOSINOPHILS 2 % (0-7); LYMPHOCYTES 22 % (15-50); MONOCYTES 22 % (2-11); NEUTROPHILS 46 % (40-80); PLATELET ESTIMATE NORMAL
[2018-03-21 10:54] LABS: CRENATED CELLS OCC
[2018-03-21 16:22] VITALS: BP 112/55
[2018-03-21 22:02] VITALS: BP 131/68
[2018-03-22 01:02] VITALS: BP 121/66
[2018-03-22 05:39] VITALS: BP 116/69
[2018-03-22 05:55] LABS: BASOPHILS 0.4 % (0-2); EOSINOPHILS 4.1 % (0-7); HEMATOCRIT 40.6 % (42.0-54.0); HEMOGLOBIN 13.4 g/dL (13.5-17.5); IMMATURE GRANULOCYTES 1.8 % (0-5); LYMPHOCYTES 26.9 % (15-50); MCH 31.5 pg (26.0-34.0); MCV 95.5 fL (80.0-100.0); MEAN PLATELET VOLUME 11.6 fL (7.4-10.4); MONOCYTES 23.8 % (2-11); PLATELET COUNT 157 10x3/uL (130-400); RBC 4.25 10x6/uL (4.20-6.10); RDW 15.2 % (11.5-14.5); WBC 5.6 10x3/uL (4.8-10.8)
[2018-03-22 06:14] LABS: ANION GAP 9.8 mmol/L (8-16); CALCIUM 10.3 mg/dL (8.5-10.1); CARBON DIOXIDE 30.9 mmol/L (21.0-32.0); POTASSIUM - SERUM 3.7 mmol/L (3.5-5.1)
[2018-03-22 06:17] LABS: CREATININE - SERUM 4.4 mg/dL (0.6-1.3)
[2018-03-22 08:13] VITALS: BP 149/56
[2018-03-22 12:46] VITALS: BP 121/57
[2018-03-22 16:12] VITALS: BP 119/58
[2018-03-22 21:25] VITALS: BP 119/56
[2018-03-23 01:43] VITALS: BP 112/58
[2018-03-23 05:00] LABS: BASOPHILS 0.2 % (0-2); EOSINOPHILS 3.4 % (0-7); HEMATOCRIT 40.5 % (42.0-54.0); HEMOGLOBIN 13.2 g/dL (13.5-17.5); IMMATURE GRANULOCYTES 1.9 % (0-5); LYMPHOCYTES 21.9 % (15-50); MCH 30.9 pg (26.0-34.0); MCHC 32.6 g/dL (31.0-37.0); MCV 94.8 fL (80.0-100.0); MEAN PLATELET VOLUME 11.5 fL (7.4-10.4); MONOCYTES 22.6 % (2-11); PLATELET COUNT 157 10x3/uL (130-400); RBC 4.27 10x6/uL (4.20-6.10); RDW 14.9 % (11.5-14.5); WBC 5.9 10x3/uL (4.8-10.8)
[2018-03-23 05:27] LABS: ANION GAP 9.6 mmol/L (8-16); CALCIUM 9.9 mg/dL (8.5-10.1); CREATININE - SERUM 5.4 mg/dL (0.6-1.3); PHOSPHOROUS 2.9 mg/dL (2.5-4.9); POTASSIUM - SERUM 3.6 mmol/L (3.5-5.1)
[2018-03-23 05:38] VITALS: BP 122/62
[2018-03-23 08:45] VITALS: BP 130/69
[2018-03-23 12:41] VITALS: BP 121/64
[2018-03-23 16:00] VITALS: BP 124/60
[2018-03-23 20:30] VITALS: BP 151/84
[2018-03-24 00:30] VITALS: BP 121/66
[2018-03-24 04:30] VITALS: BP 121/52
[2018-03-24 06:13] LABS: BASOPHILS 0.4 % (0-2); HEMATOCRIT 39.8 % (42.0-54.0); HEMOGLOBIN 13.2 g/dL (13.5-17.5); IMMATURE GRANULOCYTES 1.8 % (0-5); LYMPHOCYTES 24.9 % (15-50); MCH 31.2 pg (26.0-34.0); MCHC 33.2 g/dL (31.0-37.0); MCV 94.1 fL (80.0-100.0); MEAN PLATELET VOLUME 11.4 fL (7.4-10.4); MONOCYTES 20.4 % (2-11); NEUTROPHILS 48.5 % (40-80); PLATELET COUNT 166 10x3/uL (130-400); RBC 4.23 10x6/uL (4.20-6.10); RDW 14.9 % (11.5-14.5); WBC 5.6 10x3/uL (4.8-10.8)
[2018-03-24 06:47] LABS: ANION GAP 15.2 mmol/L (8-16); CALCIUM 9.6 mg/dL (8.5-10.1); CARBON DIOXIDE 26.6 mmol/L (21.0-32.0); CREATININE - SERUM 6.8 mg/dL (0.6-1.3); POTASSIUM - SERUM 3.8 mmol/L (3.5-5.1)
[2018-03-24 07:59] VITALS: BP 125/64
[2018-03-24 15:32] VITALS: BP 88/44
[2018-03-24 20:00] VITALS: BP 100/57
[2018-03-25] VITALS: BP 114/65
[2018-03-25 04:00] VITALS: BP 128/65
[2018-03-25 04:25] LABS: BASOPHILS 0.1 % (0-2); EOSINOPHILS 2.1 % (0-7); HEMATOCRIT 43.8 % (42.0-54.0); HEMOGLOBIN 14.9 g/dL (13.5-17.5); IMMATURE GRANULOCYTES 1.6 % (0-5); LYMPHOCYTES 19.4 % (15-50); MCH 31.7 pg (26.0-34.0); MCV 93.2 fL (80.0-100.0); MEAN PLATELET VOLUME 11.4 fL (7.4-10.4); NEUTROPHILS 60.8 % (40-80); PLATELET COUNT 162 10x3/uL (130-400); RDW 14.6 % (11.5-14.5); WBC 6.8 10x3/uL (4.8-10.8)
[2018-03-25 04:40] LABS: ANION GAP 16.9 mmol/L (8-16); CALCIUM 9.2 mg/dL (8.5-10.1); CARBON DIOXIDE 24.8 mmol/L (21.0-32.0); CREATININE - SERUM 5.3 mg/dL (0.6-1.3); POTASSIUM - SERUM 3.7 mmol/L (3.5-5.1)
[2018-03-25] MEDS ORDERED: COREG6.25 MG PO (07:23)
[2018-03-25] MEDS ORDERED: SENNA8.6 MG PO (07:24)
[2018-03-25] MEDS ORDERED: HUMULIN R100 U/ML SC (07:27)
[2018-03-25 08:08] VITALS: BP 128/76
[2018-03-25 11:31] VITALS: BP 148/76
== END 2018-03-25 12:19 | DRG 673 ==
LOC: D.ER 07:49 → D.M2 09:09 → D.EDHOLD 09:09 → D.M2 09:15 → D.SDCHOLD 03-06 13:43 → D.M2 03-06 13:49
PROVIDERS: Emergency Medicine; Family Medicine; Internal Medicine; Internal Medicine Nephrology; Surgery
PROC: B5181ZA Fluoroscopy of Superior Vena Cava using Low Osmolar Contrast, Guidance (ICD-10-PCS; 2018-03-10)
PROC: 5A1D70Z Performance of Urinary Filtration, Intermittent, Less than 6 Hours Per Day (ICD-10-PCS; 2018-03-10)
PROC: 0JH63XZ Insertion of Tunneled Vascular Access Device into Chest Subcutaneous Tissue and Fascia, Percutaneous Approach (ICD-10-PCS; 2018-03-10)
PROC: 02HV33Z Insertion of Infusion Device into Superior Vena Cava, Percutaneous Approach (ICD-10-PCS; principal; 2018-03-10 14:29)
DX: N17.9 Acute kidney failure, unspecified (principal); I50.23 Acute on chronic systolic (congestive) heart failure; G93.41 Metabolic encephalopathy; I13.2 Hypertensive heart and chronic kidney disease with heart failure and with stage 5 chronic kidney disease, or end stage renal disease; N18.6 End stage renal disease; E11.22 Type 2 diabetes mellitus with diabetic chronic kidney disease; I25.10 Atherosclerotic heart disease of native coronary artery without angina pectoris; E78.5 Hyperlipidemia, unspecified; N32.0 Bladder-neck obstruction; D64.9 Anemia, unspecified; G47.33 Obstructive sleep apnea (adult) (pediatric); E87.6 Hypokalemia; F03.90 Unspecified dementia, unspecified severity, without behavioral disturbance, psychotic disturbance, mood disturbance, and anxiety; K59.09 Other constipation; M19.90 Unspecified osteoarthritis, unspecified site; E83.51 Hypocalcemia; E83.39 Other disorders of phosphorus metabolism; I25.5 Ischemic cardiomyopathy; Z95.5 Presence of coronary angioplasty implant and graft; Z95.1 Presence of aortocoronary bypass graft; Z85.46 Personal history of malignant neoplasm of prostate; R13.12 Dysphagia, oropharyngeal phase

== ENCOUNTER 2018-03-28 07:27 | Inpatient (IN) | payer MEDICARE ==
[~2018-03-28] VITALS: Ht 182.9 cm; Wt 91.6 kg
[~2018-03-28 07:27] MED LIST changes: +COREG6.25 MG PO; +HUMULIN R100 U/ML SC; +SENNA8.6 MG PO
[2018-03-28 08:03] LABS: ALBUMIN 2.6 g/dL (3.4-5.0); ANION GAP 16.7 mmol/L (8-16); BILIRUBIN - TOTAL 0.6 mg/dL (0.2-1.3); CALCIUM 9.1 mg/dL (8.5-10.1); CARBON DIOXIDE 23.8 mmol/L (21.0-32.0); CREATININE - SERUM 8.4 mg/dL (0.6-1.3); MAGNESIUM - SERUM 2.6 mg/dL (1.8-2.4); POTASSIUM - SERUM 4.5 mmol/L (3.5-5.1); PROTEIN - SERUM 7.3 g/dL (6.4-8.2)
[2018-03-28 08:04] LABS: BASOPHILS 0.3 % (0-2); EOSINOPHILS 2.3 % (0-7); HEMOGLOBIN 14.2 g/dL (13.5-17.5); IMMATURE GRANULOCYTES 0.9 % (0-5); LYMPHOCYTES 22.3 % (15-50); MCH 31.7 pg (26.0-34.0); MCHC 34.6 g/dL (31.0-37.0); MCV 91.5 fL (80.0-100.0); MEAN PLATELET VOLUME 11.2 fL (7.4-10.4); MONOCYTES 18.1 % (2-11); NEUTROPHILS 56.1 % (40-80); PLATELET COUNT 150 10x3/uL (130-400); RBC 4.48 10x6/uL (4.20-6.10); RDW 14.3 % (11.5-14.5); WBC 7.4 10x3/uL (4.8-10.8)
[2018-03-28] MEDS ORDERED: ZINC50 MG PO (10:40)
[2018-03-28] MEDS ORDERED: ASCORBIC ACID500 MG PO (10:40)
[2018-03-28] MEDS ORDERED: CENTRUM SILVER1 TA1 PO (10:41)
[2018-03-28 11:03] VITALS: BP 131/74
[2018-03-28 12:24] VITALS: BP 126/78; BMI 27.4
[2018-03-28 16:51] VITALS: BP 128/77
[2018-03-28 21:04] VITALS: BP 126/63
[2018-03-29 00:34] VITALS: BP 130/69
[2018-03-29 05:37] VITALS: BP 160/73
[2018-03-29 05:48] LABS: BASOPHILS 0.3 % (0-2); EOSINOPHILS 2.3 % (0-7); HEMATOCRIT 40.7 % (42.0-54.0); HEMOGLOBIN 13.8 g/dL (13.5-17.5); LYMPHOCYTES 23.6 % (15-50); MCH 31.1 pg (26.0-34.0); MCHC 33.9 g/dL (31.0-37.0); MCV 91.7 fL (80.0-100.0); MEAN PLATELET VOLUME 11.8 fL (7.4-10.4); MONOCYTES 18.5 % (2-11); NEUTROPHILS 54.3 % (40-80); PLATELET COUNT 145 10x3/uL (130-400); RBC 4.44 10x6/uL (4.20-6.10); RDW 14.4 % (11.5-14.5); WBC 6.2 10x3/uL (4.8-10.8)
[2018-03-29 06:05] LABS: ANION GAP 15.1 mmol/L (8-16); CALCIUM 8.6 mg/dL (8.5-10.1); CARBON DIOXIDE 25.7 mmol/L (21.0-32.0); CREATININE - SERUM 6.8 mg/dL (0.6-1.3); PHOSPHOROUS 3.9 mg/dL (2.5-4.9)
[2018-03-29 06:06] LABS: POTASSIUM - SERUM 3.8 mmol/L (3.5-5.1)
[2018-03-29 08:06] VITALS: BP 130/66
[2018-03-29 13:12] VITALS: Ht 182.9 cm; Wt 91.6 kg
[2018-03-29 16:45] VITALS: BP 131/68
[2018-03-29 20:00] VITALS: BP 138/78
[2018-03-30] VITALS: BP 102/64
[2018-03-30 05:39] LABS: BASOPHILS 0.3 % (0-2); EOSINOPHILS 2.1 % (0-7); HEMATOCRIT 42.5 % (42.0-54.0); HEMOGLOBIN 14.6 g/dL (13.5-17.5); LYMPHOCYTES 26.1 % (15-50); MCH 31.6 pg (26.0-34.0); MCHC 34.4 g/dL (31.0-37.0); MONOCYTES 20.9 % (2-11); NEUTROPHILS 49.6 % (40-80); PLATELET COUNT 145 10x3/uL (130-400); RBC 4.62 10x6/uL (4.20-6.10); RDW 14.5 % (11.5-14.5); WBC 6.2 10x3/uL (4.8-10.8)
[2018-03-30 06:02] LABS: ANION GAP 16.7 mmol/L (8-16); CALCIUM 8.9 mg/dL (8.5-10.1); CARBON DIOXIDE 25.2 mmol/L (21.0-32.0); CREATININE - SERUM 6.1 mg/dL (0.6-1.3); PHOSPHOROUS 4.7 mg/dL (2.5-4.9); POTASSIUM - SERUM 3.9 mmol/L (3.5-5.1); VANCOMYCIN - RANDOM 20.1 ug/mL (10.0-20.0)
[2018-03-30 08:43] VITALS: BP 115/70
[2018-03-30 11:59] VITALS: BP 108/64
[2018-03-30 16:07] VITALS: BP 108/70
[2018-03-30 20:00] VITALS: BP 116/64
[2018-03-31] VITALS: BP 119/70
[2018-03-31 04:00] VITALS: BP 132/71
[2018-03-31 05:24] LABS: BASOPHILS 0.3 % (0-2); EOSINOPHILS 5.3 % (0-7); HEMATOCRIT 42.2 % (42.0-54.0); HEMOGLOBIN 14.3 g/dL (13.5-17.5); IMMATURE GRANULOCYTES 1.2 % (0-5); LYMPHOCYTES 23.7 % (15-50); MCH 31.4 pg (26.0-34.0); MCHC 33.9 g/dL (31.0-37.0); MCV 92.7 fL (80.0-100.0); MEAN PLATELET VOLUME 11.4 fL (7.4-10.4); NEUTROPHILS 49.5 % (40-80); PLATELET COUNT 144 10x3/uL (130-400); RBC 4.55 10x6/uL (4.20-6.10); RDW 14.6 % (11.5-14.5); WBC 6.4 10x3/uL (4.8-10.8)
[2018-03-31 05:47] LABS: CALCIUM 8.8 mg/dL (8.5-10.1); CARBON DIOXIDE 25.2 mmol/L (21.0-32.0); CREATININE - SERUM 7.6 mg/dL (0.6-1.3); POTASSIUM - SERUM 4.2 mmol/L (3.5-5.1); VANCOMYCIN - RANDOM 17.3 ug/mL (10.0-20.0)
[2018-03-31 05:48] LABS: PHOSPHOROUS 6.1 mg/dL (2.5-4.9)
[2018-03-31 08:32] VITALS: BP 127/76
== END 2018-03-31 12:01 | DRG 592 ==
LOC: D.ER 07:27 → D.M2 09:00
PROVIDERS: Family Medicine; Internal Medicine Nephrology
PROC: 5A1D70Z Performance of Urinary Filtration, Intermittent, Less than 6 Hours Per Day (ICD-10-PCS; principal; 2018-03-28)
DX: L89.150 Pressure ulcer of sacral region, unstageable (principal); N18.6 End stage renal disease; I13.2 Hypertensive heart and chronic kidney disease with heart failure and with stage 5 chronic kidney disease, or end stage renal disease; E11.22 Type 2 diabetes mellitus with diabetic chronic kidney disease; I50.9 Heart failure, unspecified; Z99.2 Dependence on renal dialysis; E78.5 Hyperlipidemia, unspecified; F03.90 Unspecified dementia, unspecified severity, without behavioral disturbance, psychotic disturbance, mood disturbance, and anxiety

== ENCOUNTER 2018-04-05 15:45 | Emergency (ER) | payer MEDICARE ==
[~2018-04-05 15:45] MED LIST changes: +ASCORBIC ACID500 MG PO; +CENTRUM SILVER1 TA1 PO; +ZINC50 MG PO
[2018-04-05 15:50] VITALS: Ht 182.9 cm
[2018-04-05] MEDS ORDERED: VIBRAMYCIN 100100 MG PO (19:55)
[2018-04-05 20:47] VITALS: BP 145/77
== END 2018-04-05 21:56 ==
LOC: D.ER 15:45
DX: L89.109 Pressure ulcer of unspecified part of back, unspecified stage (principal)

== ENCOUNTER 2018-04-22 12:36 | Emergency (ER) | payer MEDICARE ==
[~2018-04-22] VITALS: Ht 182.9 cm; Wt 81.8 kg
[~2018-04-22 12:36] MED LIST changes: +VIBRAMYCIN 100100 MG PO
[2018-04-22 12:40] VITALS: Ht 182.9 cm; Wt 81.8 kg
[2018-04-22 14:28] VITALS: BP 126/65
== END 2018-04-22 15:59 | disposition home or self-care (01) ==
LOC: D.ER 12:36
DX: R41.82 Altered mental status, unspecified (principal); L89.154 Pressure ulcer of sacral region, stage 4; E11.9 Type 2 diabetes mellitus without complications; I10 Essential (primary) hypertension

== ENCOUNTER 2018-05-30 07:20 | Day surgery (SDC) | payer MEDICARE ==
[~2018-05-30] VITALS: Ht 188 cm; Wt 88.0 kg
--- NOTE | ~2018-05-30 | OP ---
PATIENT NAME: BRYANT ESPANA MEDICAL RECORD: [id number] :38 LOCATION:[facility] ADMISSION DATE: SURGEON: SUKHJINDER WRIGHT MD DATE OF OPERATION: 05/30/2018 PREOPERATIVE DIAGNOSIS: End-stage renal disease. POSTOPERATIVE DIAGNOSIS: End-stage renal disease. OPERATION PERFORMED: Creation of a right brachiocephalic AV fistula. SURGEON: Sukhjinder Wright MD ANESTHESIA: Regional block plus general per NETWORKS COMPUTER CONSULTANT. PREOPERATIVE NOTE: Mr. Espana is a demented 77-year-old white male patient who resides in an assisted living at the [facility]. He has ESRD and is presently dialyzing with a right tunneled dialysis catheter and needs long-term access. He is in my opinion borderline, so far as whether he should have a fistula constructed first, we should go directly to an AV graft. I will make my decision based on the quality of his vessels, though I am leaning towards a graft. DESCRIPTION OF PROCEDURE: Under anesthesia in supine position, the patient's right arm was prepped and draped in sterile manner. I examined him with a venous tourniquet and topical nitroglycerin with a duplex ultrasound and found that the cephalic vein in the upper arm while smaller than the basilic was I think of adequate caliber about 3 mm, so we can expect that it will enlarge and the brachial artery appeared to not be too involved with atherosclerosis. I made a transverse antecubital incision and dissected the median cubital veins and the brachial artery. The artery was controlled with Silastic loops. Tributaries of the median cubital vein were ligated and divided and the vein was bevelled and flushed with heparinized saline. The median cephalic vein was quite large, 4-5 mm in diameter. The brachial artery was occluded with Silastic loops and an arteriotomy made. The artery flushed with heparinized saline proximally and distally and an end-to-side, end of vein to side of artery anastomosis completed with running 6-0 Prolene. Excellent flow was established in the fistula and there was preservation of distal pulsatile high resistance flow in the brachial artery and proximally, there was continuous low resistance type pulsatile flow as one should expect. The wound was closed with interrupted inverted 3-0 Vicryl. The skin was closed with running intracuticular Stratafix 4-0. The patient's tissues are very fragile and although he should do well in every way, I would not be surprised for him to have a wound complication. The incision was sealed with Dermabond and dressed with Maxorb AG and covered with Tegaderm with Cavilon skin prep. The patient was awakened and taken to the recovery room. Plan for the patient to return to the [facility] this afternoon if he meets criteria in the outpatient department. He will resume his usual diet and all of his same medications. I will plan to see him back in my office next week. I did leave a prescription for tramadol 50 mg, that he can take 1 or 2 p.o. q.4 hours p.r.n. pain. OPERATIVE REPORT [id number] BRYANT ESPANA There was no blood loss during the procedure. All sponges, instruments and needles were accounted for. No drain was used and no surgical specimen submitted for histopathology. TRANSINT:[id number] Voice Confirmation ID: [id number] DOCUMENT ID: [id number] SUKHJINDER WRIGHT MD at 1054 CC: ASIM ARCINIEGA MD [id number] DICTATION DATE: 05/30/18 1614 [facility] WELT BUTTER: 05/30/18 1731 [facility] 05/30/18 [facility] [address] [place] [address]
[2018-05-30 07:43] LABS: BASOPHILS 0.2 % (0-2); EOSINOPHILS 6.2 % (0-7); HEMATOCRIT 39.5 % (42.0-54.0); HEMOGLOBIN 13.3 g/dL (13.5-17.5); IMMATURE GRANULOCYTES 2.1 % (0-5); LYMPHOCYTES 25.4 % (15-50); MCHC 33.7 g/dL (31.0-37.0); MCV 95.2 fL (80.0-100.0); MEAN PLATELET VOLUME 10.7 fL (7.4-10.4); MONOCYTES 11.9 % (2-11); NEUTROPHILS 54.2 % (40-80); RBC 4.15 10x6/uL (4.20-6.10); RDW 14.8 % (11.5-14.5); WBC 8.4 10x3/uL (4.8-10.8)
[2018-05-30 07:45] LABS: PLATELET COUNT 187 10x3/uL (130-400)
[2018-05-30 07:55] LABS: ANION GAP 13.1 mmol/L (8-16); CALCIUM 9.2 mg/dL (8.5-10.1); CARBON DIOXIDE 25.9 mmol/L (21.0-32.0); CREATININE - SERUM 5.4 mg/dL (0.6-1.3)
[2018-05-30 08:13] LABS: APTT 26.8 SECONDS (22.8-39.4); INR 0.96 (0.85-1.17); PROTIME 12.4 SECONDS (11.6-15.0)
[2018-05-30 11:35] VITALS: BP 144/80; Ht 188 cm; Wt 88.0 kg
[2018-05-30] MEDS ORDERED: PROMOD LIQUID P30 M1 PO (11:45)
[2018-05-30] MEDS ORDERED: NATURAL SENNA8.6 MG (11:45)
[2018-05-30] MEDS ORDERED: HYDROCODON-ACET15 ML (11:46)
== END 2018-05-30 17:50 ==
LOC: D.OPS 07:20
PROVIDERS: Surgery
DX: N18.6 End stage renal disease (principal); Z99.2 Dependence on renal dialysis; Z01.812 Encounter for preprocedural laboratory examination

== ENCOUNTER 2019-01-06 03:03 | Inpatient (IN) | payer MEDICARE ==
[2019-01-06] VITALS (25 sets, daily range): BP systolic 87–151; BP diastolic 52–94; Ht 182.9 cm; Wt 97.5 kg
[~2019-01-06] VITALS: Ht 182.9 cm; Wt 97.5 kg
[~2019-01-06 03:03] MED LIST changes: +HYDROCODON-ACET15 ML; +NATURAL SENNA8.6 MG; +PROMOD LIQUID P30 M1 PO
[2019-01-06] MEDS ORDERED: MOBIC7.5 MG PO (03:16)
[2019-01-06 04:01] LABS: BASOPHILS 0.1 % (0-2); EOSINOPHILS 0 % (0-7); HEMATOCRIT 33.3 % (42.0-54.0); HEMOGLOBIN 9.5 g/dL (13.5-17.5); IMMATURE GRANULOCYTES 0.8 % (0-5); LYMPHOCYTES 22.5 % (15-50); MCH 32.4 pg (26.0-34.0); MCHC 28.5 g/dL (31.0-37.0); MCV 113.7 fL (80.0-100.0); MONOCYTES 9.9 % (2-11); NEUTROPHILS 66.7 % (40-80); RBC 2.93 10x6/uL (4.20-6.10); RDW 14.5 % (11.5-14.5); WBC 8.6 10x3/uL (4.8-10.8)
[2019-01-06 04:06] LABS: APTT 32.3 SECONDS (22.8-39.4); INR 1.41 (0.85-1.17); PLATELET COUNT 106 10x3/uL (130-400); PROTIME 16.7 SECONDS (11.6-15.0)
[2019-01-06 04:27] LABS: ALBUMIN 2.3 g/dL (3.4-5.0); ALKALINE PHOSPHATASE 64 U/L (46-116); CALCIUM 7.3 mg/dL (8.5-10.1); CARBON DIOXIDE 17.3 mmol/L (21.0-32.0); CHLORIDE - SERUM 96 mmol/L (98-107); CKMB 1.9 U/L (0.0-3.6); CREATINE KINASE 49 UL (21-232); CREATININE - SERUM 15.1 mg/dL (0.6-1.3); PROTEIN - SERUM 5.4 g/dL (6.4-8.2); SODIUM 134 mmol/L (136-145); UREA NITROGEN 126 mg/dL (7-18); eGFR NON AFRICAN AMERICAN 3 mL/min (90-120)
[2019-01-06 04:38] LABS: ALT (SGPT) 1201 U/L (10-68); POTASSIUM - SERUM 8.5 mmol/L (3.5-5.1); TROPONIN-I 0.405 ng/mL (0.000-0.060)
[2019-01-06 05:01] LABS: CALC OSMOLALITY 414 mosm/kg (275-300); GLUCOSE 2009 mg/dL (74-106)
[2019-01-06 06:02] LABS: ANION GAP 31.9 mmol/L (8-16); CALCIUM 8.5 mg/dL (8.5-10.1); CARBON DIOXIDE 18.8 mmol/L (21.0-32.0); CREATININE - SERUM 15.5 mg/dL (0.6-1.3)
--- NOTE | 2019-01-06 06:16 | NUR ---
PT ARRIVED TO UNIT VIA [facility] ER BED WITH LILIBETH LUNDBERG, PT CONFUSED AND YELLING OUT PROFANITY WHEN TOUCHED OR MOVED, ORIENTED PT AT THIS TIME AND WILL CONTINUE, PT MODERATLY CONFUSED BUT ABLE TO ANSWER QUESTIONS, 22g PIV IN LEFT HAND PLACED BY EMS, RIGHT ARM RESERVE D/T FISTULA, FISTULA THRILL AND BRUIT PRESENT, PPP, VSS, OXYGEN 2L/MIN VIA NC, PT HAD SEMISOLID BROWN BM NOTED, PARTIAL BATH AND FULL LINEN CHANGE, PT MOVES ALL EXTREMITIES WITH PURPOSE, X2 SMALL SKIN ABRASIONS NOTED ON LEFT UPPER BACK PRIOR TO ARRIVAL TO UNIT, DIALYSIS NURSE JER MUSA AT BEDSIDE, PT CONFUSED AND REFUSED TO SIGN CONSENT D/T UNABILITY TO SIGN NAME, RN COSIGNED ON BEHALF OF PT, RADIOLOGY PHYSICIAN PRIMARY FOR PT CONSENT, NO FURTHER AT THIS TIME WILL CONTINUE TO MONITOR
[2019-01-06 06:19] LABS: POTASSIUM - SERUM 6.7 mmol/L (3.5-5.1)
--- NOTE | 2019-01-06 07:10 | NUR ---
REPORT RECIEVED. VSS. DIALYSIS AT BEDSIDE.
--- NOTE | 2019-01-06 07:50 | NUR ---
ASSESSMENT COMPLETE PER FLOW SHEET. VSS. REFER FOR FINDINGS. WILL CONTINUE TO MONITOR
--- NOTE | 2019-01-06 08:50 | NUR ---
FAMILY CALLED GIVEN UPDATE
--- NOTE | 2019-01-06 10:20 | NUR ---
DR CUETO AT [facility]. NO NEW ORDERS. GIVEN UPDATE.
--- NOTE | 2019-01-06 12:18 | NUR ---
PT SLEEPING COMFORTALBY VSS NO NEW CHANGES WILL CONTINUE TO MONITO R
--- NOTE | 2019-01-06 14:10 | NUR ---
DAUGHTER AT [facility]. GIVEN UPDATE.
--- NOTE | 2019-01-06 15:16 | NUR ---
REASSESSMENT COMPLETE PER FLOW SHEET. VSS. NO NEW CHANGES. PT RESTING COMFORTABLY WILL CONITNUE TO MONITOR
--- NOTE | 2019-01-06 18:03 | MORECARE ---
CASE MANAGEMENT DISCHARGE SUMMARY PATIENT: BRYANT ESPANA UNIT: [id number] ADM DATE: 01/06/19 AGE: 78 : 39 SEX: M ROOM/BED: D.2315 AUTHOR: JAYDEN HINOJOSA PHYSICIAN: REFERRING PHYSICIAN: FLORIDA CUETO MD DATE OF SERVICE: 01/06/19 Discharge Plan Patient Name: BRYANT ESPANA Facility: [facility]:[place] : 1940 Planned Disposition: Nursing Facility [facility] Cert Anticipated Discharge Date: Discharge Date: Expected LOS: Initial Reviewer: [email or web address] Initial Review Date: 01/06/2019 Generated: 01/06/19 7:03 pm DCPIA - Discharge Planning Initial Assessment Updated by [email or web address]: Effie Valdez on 01/06/19 6:02 pm * Is the patient Alert and Oriented? Yes * Preadmission Environment Group Home Facility * Facility Name [facility] * ADLs Partial Dependent * Partial ADLs (Assistance needed) Ambulation Bathing Dressing Eating Medication Management Toileting Transfers * Other Equipment wheelchair * List name and contact numbers for known caregivers / representatives who currently or will assist patient after discharge: CATRACHITO ESPANA - DAUGHTER- [phone] * Verbal permission to speak to the caregivers and representatives has been obtained from the patient. N/A * Please name any agencies selected above. DIALYSIS @ [facility] * Additional services required to return to the preadmission environment? No * Can the patient safely return to the preadmission environment? Yes * Has this patient been hospitalized within the prior 30 days at any hospital? No Patient Name: BRYANT ESPANA Page [phone] at 1803 All edits/amendments must be made on the electronic document DICTATION DATE: 01/06/191801 ENVIRONMENTAL SAMPLING TECHNICIAN: ZOE 01/06/191801 RPT#: [id number] DC DATE: STATUS: ADM IN [facility] [address] [place] [address] END OF REPORT
--- NOTE | 2019-01-06 18:10 | MORECARE ---
CASE MANAGEMENT DISCHARGE SUMMARY PATIENT: BRYANT ESPANA UNIT: [id number] ADM DATE: 01/06/19 AGE: 78 : 39 SEX: M ROOM/BED: D.2315 AUTHOR: ASHISH,DOC PHYSICIAN: REFERRING PHYSICIAN: FLORIDA CUETO MD DATE OF SERVICE: 01/06/19 Discharge Plan Patient Name: BRYANT ESPANA Facility: [facility]:[place] : 1940 Planned Disposition: Nursing Facility [facility] Cert Anticipated Discharge Date: Discharge Date: Expected LOS: Initial Reviewer: [email or web address] Initial Review Date: 01/06/2019 Generated: 01/06/19 7:10 pm Comments DCP- Discharge Planning Updated by [email or web address]: Effie Valdez on 01/06/19 5:[address] Patient Name: BRYANT ESPANA Admission Status: ER Accout number: [id number] Admission Date: 01-06-2019 : 1940 Admission Diagnosis: Attending: FLORIDA CUETO Current LOS: 1 Anticipated DC Date: Planned Disposition: Nursing Facility [facility] Cert Primary Insurance: MEDICARE A & B Discharge Planning Comments: CM met with patient at bedside. Patient is drowsy he stated that he lives in a [facility]. He plans on returning upon discharge. Patient poor historian unable to get much information. CM will continue to follow and assist as needed with discharge planning / needs. Digital Production Manager: Effie Valdez DCPIA - Discharge Planning Initial Assessment Updated by [email or web address]: Effie Valdez on 01/06/19 6:02 pm * Is the patient Alert and Oriented? Yes * Preadmission Environment Group Home Facility * Facility Name [facility] * ADLs Partial Dependent * Partial ADLs (Assistance needed) Ambulation Bathing Dressing Eating Medication Management Toileting Transfers * Other Equipment wheelchair * List name and contact numbers for known caregivers / representatives who currently or will assist patient after discharge: CATRACHITO ESPANA - DAUGHTER- [phone] * Verbal permission to speak to the caregivers and representatives has been obtained from the patient. N/A * Please name any agencies selected above. DIALYSIS @ [facility] * Additional services required to return to the preadmission environment? No * Can the patient safely return to the preadmission environment? Yes * Has this patient been hospitalized within the prior 30 days at any hospital? No Last DP export: 01/06/19 5:03 p Patient Name: BRYANT ESPANA Page [id number] at 1810 All edits/amendments must be made on the electronic document DICTATION DATE: 01/06/191808 PERPETUAL INVENTORY CLERK: ZOE 01/06/191808 RPT#: [id number] DC DATE: STATUS: ADM IN [facility] [address] [place] [address] END OF REPORT
[2019-01-07] VITALS (13 sets, daily range): BP systolic 94–151; BP diastolic 22–87
[2019-01-07 04:53] LABS: BASOPHILS 0.2 % (0-2); EOSINOPHILS 0.4 % (0-7); HEMATOCRIT 33.6 % (42.0-54.0); HEMOGLOBIN 11.1 g/dL (13.5-17.5); IMMATURE GRANULOCYTES 1.2 % (0-5); LYMPHOCYTES 15.1 % (15-50); MEAN PLATELET VOLUME 11.5 fL (7.4-10.4); MONOCYTES 17.8 % (2-11); NEUTROPHILS 65.3 % (40-80); PLATELET COUNT 119 10x3/uL (130-400); RBC 3.36 10x6/uL (4.20-6.10); RDW 13.8 % (11.5-14.5)
[2019-01-07 05:10] LABS: WBC 4.8 10x3/uL (4.8-10.8)
[2019-01-07 05:42] LABS: ALBUMIN 2.8 g/dL (3.4-5.0); BILIRUBIN - TOTAL 0.5 mg/dL (0.2-1.3); CALCIUM 8.2 mg/dL (8.5-10.1); CARBON DIOXIDE 23.5 mmol/L (21.0-32.0); PROTEIN - SERUM 6.3 g/dL (6.4-8.2)
[2019-01-07 05:51] LABS: ANION GAP 24.1 mmol/L (8-16); CREATININE - SERUM 10.7 mg/dL (0.6-1.3); POTASSIUM - SERUM 5.6 mmol/L (3.5-5.1)
[2019-01-07] MEDS ORDERED: ASCORBIC ACID500 MG PO (07:07)
[2019-01-07] MEDS ORDERED: HYDROCODON-ACE1 EAC7 PO (07:10)
[2019-01-07] MEDS ORDERED: ACETAMINOPHEN325 MG PO (07:12)
[2019-01-07] MEDS ORDERED: EMLA CREAM 30 G30 G1 TOPICAL (07:13)
--- NOTE | 2019-01-07 07:29 | NUR ---
REPORT RECIEVED. ASSESSMENT COMPLETE PER FLOW SHEET. VSS. PT RESTING COMFROTABLY WILL CONTINUE TO MONITOR
--- NOTE | 2019-01-07 09:24 | NUR ---
DAUGHTER CALLED STATED PASSWORD UPDATE GIVEN STATED WOULD BE HERE LATER THIS EVENING. PT RESTING COMFORTABLY WILL CONTINUE TO MONITOR
--- NOTE | 2019-01-07 09:36 | NUR ---
DIAYLSIS AT BEDSIDE.
--- NOTE | 2019-01-07 11:20 | NUR ---
REASSESSMENT COMPLETE PER FLOW SHEET. VSS. NO NEW CHANGES PT RESTING COMFORTABLY DIALYSIS AT BEDSIDE. WILL CONTNIUE TO MONITOR
--- NOTE | 2019-01-07 14:00 | NUR ---
PT TX COMPLETE. BLOOD RETURNED. 2L FLUID OFF. PT RESTING BUT GETS AGITATED AND DISRESPECTFULL QUICKLY.AVG SECURED WITH 2X2 AND PAPER TAPE.
--- NOTE | 2019-01-07 15:41 | NUR ---
REPORT CALLED TO CORI LUNDBERG REPORT GIVEN TRANSFERED VIA BED
--- NOTE | 2019-01-07 15:59 | NUR ---
PT ARRIVED FROM ICU A TRANSFER. PT IS PLEASANTLY CONFUSED SITTING UP IN BED RESTING QUIETLY. PT ASKING WHEN HIS DAUGHTER WILL BE HERE, WILL FIND OUT FOR HIM. RR NONLABORED ON RA. NO CURRENT NEEDS. CL IN REACH, BED IN LOWEST, SIDE RAILS X2 AND BUILT IN BED ALARM ON. WILL CTM.
--- NOTE | 2019-01-07 16:32 | MORECARE ---
CASE MANAGEMENT DISCHARGE SUMMARY PATIENT: BRYANT ESPANA UNIT: [id number] ADM DATE: 01/06/19 AGE: 78 : 39 SEX: M ROOM/BED: D.2138 AUTHOR: ASHISH,DOC PHYSICIAN: REFERRING PHYSICIAN: FLORIDA CUETO MD DATE OF SERVICE: 01/07/19 Discharge Plan Patient Name: BRYANT ESPANA Facility: [facility]:[place] : 1940 Planned Disposition: Nursing Facility [facility] Cert Anticipated Discharge Date: 01/08/19 Discharge Date: Expected LOS: 2 Initial Reviewer: [email or web address] Initial Review Date: 01/06/2019 Generated: 01/07/19 5:32 pm Comments DCP- Discharge Planning Updated by [email or web address]: Romeo Preston on 01/07/19 3:[address] Patient Name: BRYANT ESPANA Encounter No: [id number] : 1940 Primary Insurance: MEDICARE A & B Anticipated DC Date: 01-08-2019 Planned Disposition: Nursing Facility [facility] Cert External [facility] [employer] [employer] MEDICAID BED DCP follow-up note: CM RECEIVED DISCHARGE PLANNING ORDER, SPOKE TO PT IN ROOM REGARDING DISCHARGE NEEDS AND PLANNING. PT REPORTS LIVING AT THE [facility] FOR "A WHILE" AND IS GOING BACK HOME TO THE [facility] AT DISCHARGE. PT USUALLY RIDES IN A WHEELCHAIR BUT IS UNSURE IF HE IS ABLE TO STAND UP NOW TO GET INTO THE WHEELCHAIR TO GO BACK TO THE PRISON. CM PROVIDED LISTING OF PRISON PROVIDERS AND CHOICE FOR PT'S SIGNATURE. PT ATTEMPTED BUT STATES HIS ARMS HURT AND HE CANNOT SIGN HIS NAME. CM PROVIDED AND DISCUSSED IMPORTANT MESSAGE FROM MEDICARE. CM CALLED CRIS OF THE [facility], , VERIFIED PT IS IN THE [facility] FOR REVERBERATORY FUR[facility]CE SUPERVISOR CARE, PT WILL RETURN TO [facility] AT DISCHARGE. FOR DISCHARGE, FAX DISCHARGE INFORMATION TO THE [facility], , NURSE REPORT TO BE CALLED TO THE [facility] AT [phone]. PT TO TRANSPORT VIA AMBULANCE IF NOT ABLE TO SAFELY MAINTAIN ERECT SITTING POSITION. MAIDA Amador MANAGEMENT DCP- Discharge Planning Updated by [id number]: Effie Valdez on 01/06/19 5:[address] Patient Name: BRYANT ESPANA Admission Status: ER Accout number: [id number] Admission Date: 01-06-2019 : 1940 Admission Diagnosis: Attending: FLORIDA CUETO Current LOS: 1 Anticipated DC Date: Planned Disposition: Nursing Facility [facility] Primary Insurance: MEDICARE A & B Discharge Planning Comments: CM met with patient at bedside. Patient is drowsy he stated that he lives in a [facility]. He plans on returning upon discharge. Patient poor historian unable to get much information. CM will continue to follow and assist as needed with discharge planning / needs. Hogshead Stripper: Effie Valdez DCPIA - Discharge Planning Initial Assessment Updated by [email or web address]: Effie Valdez on 01/06/19 6:02 pm * Is the patient Alert and Oriented? Yes * Preadmission Environment [facility] Facility * Facility Name [facility] * ADLs Partial Dependent * Partial ADLs (Assistance needed) Ambulation Bathing Dressing Eating Medication Management Toileting Transfers * Other Equipment wheelchair * List name and contact numbers for known caregivers / representatives who currently or will assist patient after discharge: CATRACHITO ESPANA - DAUGHTER- [phone] * Verbal permission to speak to the caregivers and representatives has been obtained from the patient. N/A * Please name any agencies selected above. DIALYSIS @ [facility] * Additional services required to return to the preadmission environment? No * Can the patient safely return to the preadmission environment? Yes * Has this patient been hospitalized within the prior 30 days at any hospital? No Coverage Notice Reviewer: [id number] Preston Notice Issued Date-Time: 01/07/2019 16:15 Notice Type: IM Discharge Notice Notice Delivered To: Patient Relationship to Patient: Crystal Cutter Name: Delivery Method: HAND - Hand Delivered Mona Days: Prior Verbal Notification: Recipient Understood Notice: Yes Recipient Signature: Med Rec Note Co-signed by Attending: Coverage Notice Comment: Reviewer: Preston Notice Issued Date-Time: 01/07/2019 16:15 Notice Type: Patient Choice Letter Notice Delivered To: Patient Relationship to Patient: Crystal Cutter Name: Delivery Method: HAND - Hand Delivered Mona Days: Prior Verbal Notification: Recipient Understood Notice: Yes Recipient Signature: Med Rec Note Co-signed by Attending: Coverage Notice Comment: THE GINI Eaton DP export: 01/06/19 5:10 p Patient Name: BRYANT ESPANA Page [phone] at 1632 All edits/amendments must be made on the electronic document DICTATION DATE: 01/07/19 163 SWIMMING INSTRUCTOR: ZOE 01/07/19 163 RPT#: [id number] DC DATE: STATUS: ADM IN [facility] [address] [place] [address] END OF REPORT
--- NOTE | 2019-01-07 19:30 | NUR ---
PT IS NOT ORIENTED AT THIS TIME LEFT AC SALINE LOCED LCTA AND BOWEL SOUNDS TIMES 4... COMPLAIN OF PAIN WITH EACH TOUCH. TECH HERE ASSISTING AT THIS TIME
--- NOTE | 2019-01-07 23:06 | NUR ---
RESTING WITH EYES CLOSED
[2019-01-08 00:30] VITALS: BP 107/36
--- NOTE | 2019-01-08 04:39 | NUR ---
I have reviewed this patient and I concur with the Shift Assessment completed by the Licensed Practical Nurse today this shift.
[2019-01-08 05:00] VITALS: BP 102/34
--- NOTE | 2019-01-08 08:04 | NUR ---
AM ROUNDS COMPLETED. INTRODUCED MYSELF TO PT PRIMARY RN FOR TODAYS SHIFT. PT IS A&O BUT HAS MAJOR MEMORY ISSUES. HE DOESNT REMEMEBER DIALYSIS DAYS OR MEDS OR REALLY THE SITUATION. PT REORIENTS WITHOUT ANY DIFFICULTIES BUT WILL ALSO NEED FREQUENT CUING. SHIFT ASSESSMENT COMPLETED. PT STATES HE IS FEELING GOOD AND WANTS TO GO HOME TODAY. LUNGS CTA THROUGHOUT ALL LOBES. RR NONLABORED ON RA. NO S/S OF EDEMA OR FLUID OVERLOAD NOTED. REPOSITIONED PT UP IN BED TO EAT BREAKFAST, ASSISTED HIM WITH MEAL SET UP AND HE IS CURRENTLY EATING WITHOUT ANY DIFFICULTIES DESPITE BEING WITHOUT HIS DENTURES. PT MOANS/GROANS AND SCREAMS ANYTIME YOU TOUCH HIM HOWEVER HE IS DOING BETTER IF YOU GO SLOW AND EXPLAIN WHAT YOU ARE DOING. PT VERY NICE AND COMPLIANT WITH ME CURRENTLY BUT APPARENTLY LIKES TO REFUSE STUFF OFTEN WILL TRY TO KEEP ENCOURAGING GOOD DECISIONS TO BETTER HIS HEALTH. PT DENIES ANY CURRENT NEEDS AT THIS TIME. CL IN REACH, BED IN LOWEST, SIDE RAILS X2 AND BUILT IN BED ALARM ON. WILL CPOC.
[2019-01-08 08:32] VITALS: BP 125/63
[2019-01-08 09:04] LABS: HEMATOCRIT 32.8 % (42.0-54.0); LYMPHOCYTES 20.4 % (15-50); MCH 33.3 pg (26.0-34.0); MCHC 33.5 g/dL (31.0-37.0); MCV 99.4 fL (80.0-100.0); NEUTROPHILS 62.7 % (40-80); PLATELET COUNT 118 10x3/uL (130-400); RDW 13.2 % (11.5-14.5)
[2019-01-08 09:05] LABS: ANION GAP 20.7 mmol/L (8-16); CALCIUM 8.8 mg/dL (8.5-10.1); CARBON DIOXIDE 28.4 mmol/L (21.0-32.0)
[2019-01-08 09:09] LABS: POTASSIUM - SERUM 4.1 mmol/L (3.5-5.1); WBC 3.5 10x3/uL (4.8-10.8)
--- NOTE | 2019-01-08 12:00 | NUR ---
DISCUSSED WITH PT ABOUT HIS DISCHARGE PLANNING. PT IS READY TO BE DISCHARGED. WILL BEGIN PAPERWORK AND WORK WITH CASE MANAGEMENT ABOUT HIM RETURNING TO HIS NH. PULLED PT UP IN BED AND REPOSITIONED FOR COMFORT AND ASSISTED HIM WITH SETTING UP HIS LUNCH. PT EATING LUNCH AND DENIES ANY CURRENT NEEDS. CL IN REACH, BED IN LOWEST, SIDE RAILS X2 AND BUILT IN BED ALARM ON. WILL CPOC.
[2019-01-08 12:04] VITALS: BP 125/54
--- NOTE | 2019-01-08 14:26 | MORECARE ---
CASE MANAGEMENT DISCHARGE SUMMARY PATIENT: BRYANT ESPANA UNIT: [id number] ADM DATE: 01/06/19 AGE: 78 : 39 SEX: M ROOM/BED: D.2132 AUTHOR: ASHISH,DOC PHYSICIAN: REFERRING PHYSICIAN: FLORIDA CUETO MD DATE OF SERVICE: 01/08/19 Discharge Plan Patient Name: BRYANT ESPANA Facility: [facility]:[place] : 1940 Planned Disposition: Nursing Facility [facility] Cert Anticipated Discharge Date: 01/08/19 Discharge Date: Expected LOS: 2 Initial Reviewer: [email or web address] Initial Review Date: 01/06/2019 Generated: 01/08/19 3:26 pm Comments DCP- Discharge Planning Updated by [id number]: Romeo Preston on 01/07/19 3:[address] Patient Name: BRYANT ESPANA Encounter No: [id number] : 1940 Primary Insurance: MEDICARE A & B Anticipated DC Date: 01-08-2019 Planned Disposition: Nursing Facility [facility] Cert External [facility] [employer] MEDICAID BED DCP follow-up note: CM RECEIVED DISCHARGE PLANNING ORDER, SPOKE TO PT IN ROOM REGARDING DISCHARGE NEEDS AND PLANNING. PT REPORTS LIVING AT THE [facility] FOR "A WHILE" AND IS GOING BACK HOME TO [facility] AT DISCHARGE. PT USUALLY RIDES IN A WHEELCHAIR BUT IS UNSURE IF HE IS ABLE TO STAND UP NOW TO GET INTO THE WHEELCHAIR TO GO BACK TO THE [facility]. CM PROVIDED LISTING OF SENIOR CARE PROVIDERS AND CHOICE FOR PT'S SIGNATURE. PT ATTEMPTED BUT STATES HIS ARMS HURT AND HE CANNOT SIGN HIS NAME. CM PROVIDED AND DISCUSSED IMPORTANT MESSAGE FROM MEDICARE. CM CALLED CRIS OF [facility], , VERIFIED PT IS IN [facility], PT WILL RETURN TO THE [facility] AT DISCHARGE. FOR DISCHARGE, FA[facility] DISCHARGE INFORMATION TO [facility], , NURSE REPORT TO BE CALLED TO THE [facility] AT [phone]. PT TO TRANSPORT VIA AMBULANCE IF NOT ABLE TO SAFELY MAINTAIN ERECT SITTING POSITION. MAIDA Amador DCP- Discharge Planning Updated by [id number]: Effie Valdez on 01/06/19 5:[address] Patient Name: BRYANT ESPANA Admission Status: ER Accout number: [id number] Admission Date: 01-06-2019 : 1940 Admission Diagnosis: Attending: FLOR[place] CUETO Current LOS: 1 Anticipated DC Date: Planned Disposition: Nursing Facility [facility] Primary Insurance: MEDICARE A & B Discharge Planning Comments: CM met with patient at bedside. Patient is drowsy he stated that [facility]. He plans on returning upon discharge. Patient poor historian unable to get much information. CM will continue to follow and assist as needed with discharge planning / needs. Rough Rounder Machine: Effie Valdez DCPIA - Discharge Planning Initial Assessment Updated by [email or web address]: Effie Valdez on 01/06/19 6:02 pm * Is the patient Alert and Oriented? Yes * Preadmission Environment [facility] * Facility Name [facility] * ADLs Partial Dependent * Partial ADLs (Assistance needed) Ambulation Bathing Dressing Eating Medication Management Toileting Transfers * Other Equipment wheelchair * List name and contact numbers for known caregivers / representatives who currently or will assist patient after discharge: CATRACHITO ESPANA - DAUGHTER- [phone] * Verbal permission to speak to the caregivers and representatives has been obtained from the patient. N/A * Please name any agencies selected above. DIALYSIS @ [facility] * Additional services required to return to the preadmission environment? No * Can the patient safely return to the preadmission environment? Yes * Has this patient been hospitalized within the prior 30 days at any hospital? No External [facility]iders [facility] [place] Next Contact Date: 01/08/2019 Service Request Date: Service Type: Resolution: Reviewer: Comments: Coverage Notice Reviewer: [email or web address] Regina Preston Notice Issued Date-Time: 01/07/2019 16:15 Notice Type: IM Discharge Notice Notice Delivered To: Patient Relationship to Patient: Drafting Technician Name: Delivery Method: HAND - Hand Delivered Mona Days: Prior Verbal Notification: Recipient Understood Notice: Yes Recipient Signature: Med Rec Note Co-signed by Attending: Coverage Notice Comment: Reviewer: [email or web address] Regina Preston Notice Issued Date-Time: 01/07/2019 16:15 Notice Type: Patient Choice Letter Notice Delivered To: Patient Relationship to Patient: Drafting Technician Name: Delivery Method: HAND - Hand Delivered Mona Days: Prior Verbal Notification: Recipient Understood Notice: Yes Recipient Signature: Med Rec Note Co-signed by Attending: Coverage Notice Comment: THE JULIENNEGloria SO Angelito DP export: 01/07/19 3:32 p Patient Name: BRYANT ESPANA Page [id number] at 1426 All edits/amendments must be made on the electronic document DICTATION DATE: 01/08/191424 SOLUTION DIRECTOR: ZOE 01/08/191424 RPT#: [id number] DC DATE: STATUS: ADM IN [facility] [address] [place] [address] END OF REPORT
--- NOTE | 2019-01-08 14:48 | MORECARE ---
CASE MANAGEMENT DISCHARGE SUMMARY PATIENT: BRYANT ESPANA UNIT: [id number] ADM DATE: 01/06/19 AGE: 78 : 39 SEX: M ROOM/BED: D.2134 AUTHOR: ASHISH,DOC PHYSICIAN: REFERRING PHYSICIAN: FLORIDA CUETO MD DATE OF SERVICE: 01/08/19 Discharge Plan Patient Name: BRYANT ESPANA [facility] : 1940 Planned Disposition: Nursing Facility [facility] Cert Anticipated Discharge Date: 01/08/19 Discharge Date: Expected LOS: 2 Initial Reviewer: [id number] Initial Review Date: 01/06/2019 Generated: 01/08/19 3:48 pm Comments DCP- Discharge Planning Updated by [email or web address]: Romeo Preston on 01/08/19 1:[address] Patient Name: BRYANT ESPANA Encounter No: [id number] : 1940 Primary Insurance: MEDICARE A & B Anticipated DC Date: 01-08-2019 Planned Disposition: Nursing Facility [facility] Cert External Planned Provider: [facility] LONG TERM CARE MEDICAID BED DCP follow-up note: CM RECEIVED DISCHARGE ORDER, SPOKE TO PT IN ROOM WHO IS IN AGREEMENT WITH DISCHARGE BACK TO THE [facility]. CM CALLED CHASTITY OF THE [facility], , VERIFIED PT IS IN THE [facility]PER[facility], PT WILL RETURN TO THE [facility] TODAY IF STABLE. CM FAXED DISCHARGE INFORMATION TO THE [facility], . NURSE REPORT TO BE CALLED TO NOHEMY AT THE [facility] AT [phone]. PLEASE ASK FOR VAN JURY CONSULTANT ARRANGMENT WHEN NURSE REPORT IS CALLED. Romeo Preston, CASE MANAGEMENT DCP- Discharge Planning Updated by [id number]: Romeo Preston on 01/07/19 3:[address] Patient Name: BRYANT ESPANA Encounter No: [id number] : 1940 Primary Insurance: MEDICARE A & B Anticipated DC Date: 01-08-2019 Planned Disposition: Nursing Facility [facility] Cert External Planned Provider: [facility], LONG TERM CARE MEDICAID BED DCP follow-up note: CM RECEIVED DISCHARGE PLANNING ORDER, SPOKE TO PT IN ROOM REGARDING DISCHARGE NEEDS AND PLANNING. PT REPORTS LIVING AT THE [facility] FOR "A WHILE" AND IS GOING BACK HOME TO THE [facility] AT DISCHARGE. PT USUALLY RIDES IN A WHEELCHAIR BUT IS UNSURE IF HE IS ABLE TO STAND UP NOW TO GET INTO THE WHEELCHAIR TO GO BACK TO THE LONG TERM. CM PROVIDED LISTING OF LONG TERM PROVIDERS AND CHOICE FOR PT'S SIGNATURE. PT ATTEMPTED BUT STATES HIS ARMS HURT AND HE CANNOT SIGN HIS NAME. CM PROVIDED AND DISCUSSED IMPORTANT MESSAGE FROM MEDICARE. CM CALLED CRIS OF THE [facility], , VERIFIED PT IS IN THE [facility], PT WILL RETURN TO THE [facility] AT DISCHARGE. FOR DISCHARGE, FAX DISCHARGE INFORMATION TO THE [facility], , NURSE REPORT TO BE CALLED TO THE [facility] AT [phone]. PT TO TRANSPORT VIA AMBULANCE IF NOT ABLE TO SAFELY MAINTAIN ERECT SITTING POSITION. Romeo Preston, CASE MANAGEMENT DCP- Discharge Planning Updated by [id number]: Effie Valdez on 01/06/19 5:[address] Patient Name: BRYANT ESPANA Admission Status: ER Accout number: [id number] Admission Date: 01-06-2019 : 1940 Admission Diagnosis: Attending: FLORIDA CUETO Current LOS: 1 Anticipated DC Date: Planned Disposition: Nursing Facility [facility] Primary Insurance: MEDICARE A & B Discharge Planning Comments: CM met with patient at bedside. Patient is drowsy he stated that he lives in a residential. He plans on returning upon discharge. Patient poor historian unable to get much information. CM will continue to follow and assist as needed with discharge planning / needs. Web Applications Developer: Effie Valdez DCPIA - Discharge Planning Initial Assessment Updated by [id number]: Effie Valdez on 01/06/19 6:02 pm * Is the patient Alert and Oriented? Yes * Preadmission Environment Fdc Facility * Facility Name [facility] * ADLs Partial Dependent * Partial ADLs (Assistance needed) Ambulation Bathing Dressing Eating Medication Management Toileting Transfers * Other Equipment wheelchair * List name and contact numbers for known caregivers / representatives who currently or will assist patient after discharge: CATRACHITO ESPANA - DAUGHTER- [phone] * Verbal permission to speak to the caregivers and representatives has been obtained from the patient. N/A * Please name any agencies selected above. DIALYSIS @ [facility] * Additional services required to return to the preadmission environment? No * Can the patient safely return to the preadmission environment? Yes * Has this patient been hospitalized within the prior 30 days at any hospital? No Coverage Notice Reviewer: [id number] Preston Notice Issued Date-Time: 01/07/2019 16:15 Notice Type: IM Discharge Notice Notice Delivered To: Patient Relationship to Patient: Cabana Attendant Name: Delivery Method: HAND - Hand Delivered Mona Days: Prior Verbal Notification: Recipient Understood Notice: Yes Recipient Signature: Med Rec Note Co-signed by Attending: Coverage Notice Comment: Reviewer: [id number] Preston Notice Issued Date-Time: 01/07/2019 16:15 Notice Type: Patient Choice Letter Notice Delivered To: Patient Relationship to Patient: Cabana Attendant Name: Delivery Method: HAND - Hand Delivered Mona Days: Prior Verbal Notification: Recipient Understood Notice: Yes Recipient Signature: Med Rec Note Co-signed by Attending: Coverage Notice Comment: [facility] Angelito DP export: 01/08/19 1:26 p Patient Name: BRYANT ESPANA Page [id number] at 1448 All edits/amendments must be made on the electronic document DICTATION DATE: 01/08/191446 OVERHAULER BUS TRUCK: ZOE 01/08/191446 RPT#: [id number] DC DATE: STATUS: ADM IN [facility] [address] [place] [address] END OF REPORT
--- NOTE | 2019-01-08 16:06 | NUR ---
D/C PTS L.FA PIV WITH CATHETER TIP FULLY INTACT. DISCHARGE TEACHING PROVIDED AND PAPERS SIGNED. PT VERBALIZED UNDERSTANDING AND DENIES ANY QUESTIONS OR CONCERNS. PT WAS NAKED SO I ASSISTED HIM WITH A BRIEF AND GOWN. CALLED NURSING REPORT TO NOHEMY AT THE [facility] HUMANITIES PROFESSOR HERE NOW WILL TRANSFER HIM INTO W/C AND GET HIM DISCHARGED.
== END 2019-01-08 16:24 | DRG 871 ==
LOC: D.ER 03:03 → D.M2 04:26 → D.EDHOLD 04:26 → D.ICU 05:11 → D.M2 01-07 15:41
PROVIDERS: Family Medicine; ADMIT Internal Medicine Nephrology; ATTEND Internal Medicine Nephrology
PROC: 5A1D70Z Performance of Urinary Filtration, Intermittent, Less than 6 Hours Per Day (ICD-10-PCS; principal; 2019-01-06)
DX: A41.9 Sepsis, unspecified organism (principal); N18.6 End stage renal disease; J18.9 Pneumonia, unspecified organism; I13.2 Hypertensive heart and chronic kidney disease with heart failure and with stage 5 chronic kidney disease, or end stage renal disease; I50.22 Chronic systolic (congestive) heart failure; E11.22 Type 2 diabetes mellitus with diabetic chronic kidney disease; Z99.2 Dependence on renal dialysis; E87.5 Hyperkalemia; F03.90 Unspecified dementia, unspecified severity, without behavioral disturbance, psychotic disturbance, mood disturbance, and anxiety; R41.0 Disorientation, unspecified

== ENCOUNTER 2019-06-22 13:08 | Inpatient (IN) | payer MEDICARE ==
[~2019-06-22] VITALS: Ht 182.9 cm; Wt 70.3 kg
--- NOTE | ~2019-06-22 | HEMODYNAMI ---
PATIENT:BRYANT ESPANA MEDICAL RECORD: [id number] : 38 LOCATION:[facility].213 ADMISSION DATE: 06/22/19 Generatedon:06/24/201914:26 Patient name: BRYANT ESPANA Patient #: [id number] SSN: D OB: 1940 Date of study: 06/24/2019 Page: Of Hemodynamic Procedure Report Patient Data Patient Demographics Procedure consent was obtained First Name: BRYANT Gender: Male Last Name: MALORIE : 1940 Patient #: [id number] Age: 79 year(s) Race: Unknown Additional ID: [id number] Contact details [address]: [address] [place] [address] rd State: [place] [facility] [place] code: [address] Past Medical History Allergies: No known allergies Admission Admission Data Admission Date: 06/22/2019 Admission Time: 18:49 Room #: [facility] Height (in.): 71 BSA: 1.89 (m2) Height (cm.): 180.34 BMI: 21.62 (kg/m2) Weight (lbs.): 155 Weight (kg.): 70.31 Procedure Procedure Types Cath Procedure Peripheral Cath Diagnostic Procedure Airveyor Operator Peripheral Procedures Fistula Mechanical Thrombectomy with Plasty Procedure Description Procedure Date Procedure Date: 06/24/2019 Procedure Start Time: 13:26 Procedure Staff Name Function Yoni Walden LIME FILTER OPERATOR Additional personnel Rell Aldana LIME FILTER OPERATOR Additional personnel Alba Quintanilla MD Performing Physician Carmelina Thomson RT Monitor Teresa Mock RN Nurse Jairon Rock RT Scrub Procedure Data Cath Procedure Fluoroscopy Diagnostic fluoroscopy Total fluoroscopy Time: 9 time: 9 min min Diagnostic fluoroscopy Total fluoroscopy dose: 408 dose: 408 mGy mGy Contrast Material Contrast Material Type Amount (ml) Isovue 300 105 Procedure Medications Medication Administration Route Dosage Lidocaine 1% added to field 20 Heparin Flush Bag added to field 2 bags (1000units/500ml NS) Heparin Bolus I.V. 3000 units Hemodynamics Rest BSA: 1.89 (m2) O2 Consumption: Estimated: 228.62 (ml/min) O2 Consumption indexed : Estimated:120.96 (ml/min/m) Heart Rate: 88 (bpm) Snapshots Pre Cath Intra NCS Post Cath Vital Signs Time Heart Resp SPO2 etCO2 NIBP (mmHg) Rhythm Pain Sedation Rate (ipm) (%) (mmHg) Status Level (bpm) 13:09:58 80 99 9.8 153/85(134) NSR 0 (11) 10(A) , No pain 13:14:20 85 20 97 6.7 125/68(98) NSR 0 (11) 10(A) , No pain 13:18:34 84 13 99 0 105/59(79) NSR 0 (11) 10(A) , No pain 13:22:40 87 10 92 0 107/63(83) NSR 0 (11) 10(A) , No pain 13:26:48 84 9 98 4.5 98/56(72) NSR 0 (11) 10(A) , No pain 13:30:54 82 10 98 5.2 87/45(63) NSR 0 (11) 10(A) , No pain 13:34:57 81 10 98 0 83/49(72) NSR 0 (11) 10(A) , No pain 13:39:01 80 9 98 10.5 91/43(59) NSR 0 (11) 10(A) , No pain 13:43:07 80 9 98 15.1 83/41(57) NSR 0 (11) 10(A) , No pain 13:47:09 80 10 99 14.3 83/45(63) NSR 0 (11) 10(A) , No pain 13:51:10 80 10 98 14.3 88/48(63) NSR 0 (11) 10(A) , No pain 13:55:16 80 9 98 14.3 82/41(73) NSR 0 (11) 10(A) , No pain 13:59:20 79 13 99 9 64/39(54) NSR 0 (11) 10(A) , No pain 14:02:57 82 13 98 12 81/50(66) NSR 0 (11) 10(A) , No pain 14:06:55 78 12 98 9.8 93/58(87) NSR 0 (11) 10(A) , No pain 14:10:58 82 12 98 9 106/52(80) NSR 0 (11) 10(A) , No pain 14:15:06 81 11 98 12.8 112/56(86) NSR 0 (11) 10(A) , No pain 14:19:18 80 15 98 10.5 107/53(76) NSR 0 (11) 10(A) , No pain 14:23:18 2.2 No Cuff NSR 0 (11) 10(A) , No pain Medications Time Medication Route Dose Verified Delivered Reason Notes Effectiveness by by 13:18:02 Lidocaine 1% added 20ml dr spring quintanilla used for to vial procedure field 13:18:15 Heparin Flush added 2 dr spring quintanilla used for Bag to bags procedure (1000units/500ml field NS) 13:52:33 Heparin Bolus I.V. 3000 dr spring guaman for units anticoagulation Procedure Log Time Note 12:49:05 Patient Height : 71 inches 12:49:12 Patient Weight : 155 lbs 12:51:56 Time tracking: Regular hours (M-F 7:00 - 5:00) 12:52:09 Plan of Care:Hemodynamics will remain stable., Cardiac rhythm will remain stable., Comfort level will be maintained., Respiratory function will remain adequate., Patient/ family verbilizes understanding of procedure., Procedure tolerated without complication., Recovers from procedure without complications.. 12:52:43 Patient received from Med II to IR Alert and oriented. Tansferred to table in Supine position. 12:52:46 Signed procedure consent form obtained from patient. 12:53:03 Correct patient and procedure confirmed by team. 12:53:15 H&P Date Dictated: 06/24/2019 Within 30 days and on chart., H&P Addendum completed by physician on day of procedure. (MUST COMPLETE FOR ALL OUTPATIENTS). 12:53:17 Pre-procedure instructions explained to patient. 12:53:18 Pre-op teaching completed and patient verbalized understanding. 12:53:51 Family unavailable. 12:53:54 Patient NPO since Midnight. 12:54:02 Patient allergic to No known allergies 12:54:25 Is the patient allergic to Iodine/contrast media? No. 12:54:33 Patient diabetic? Yes. 12:54:35 If diabetic: On Metformin? No 12:54:38 - 12:54:40 ----Pre-sedation anethsthesia assessment.----see anesthesia notes for monitoring of patient during procedure 12:55:13 - 12:55:19 Use device set IR Diagnostic 12:55:20 Tegaderm 4 x 4 (1626W) opened to sterile field. 12:55:21 Sterile Angiographic Pack opened to sterile field. 12:55:22 Bag Decanter () opened to sterile field. 12:55:[address] Shilo (145479) opened to sterile field. 12:55:51 DOC .035 wire (K58997) opened to sterile field. 12:56:01 Micropuncture VSI 4FR kit opened to sterile field. 13:08:49 Vital chart was started 13:12:31 ECG and BP/O2 sat monitors applied to patient. 13:12:32 Baseline sample Acquired. 13:12:36 Full Disclosure recording started 13:12:37 - 13:12:39 Baseline sample Acquired. 13:13:06 GLIDE CATHETER 5FR ANGLED 65cm (CG507) opened to sterile field. 13:18:02 Lidocaine 1% 20ml vial added to field was administered by dr quintanilla; used for procedure; 13:18:15 Heparin Flush Bag (1000units/500ml NS) 2 bags added to field was administered by dr quintanilla; used for procedure; 13:23:44 SHEATH 5FR Delmar (OYN672) opened to sterile field. 13:25:35 - 13:25:50 Right Arm was prepped with chlora-prep and draped in sterile fashion. 13:25:52 Physician arrived 13:25:53 --------ALL STOP TIME OUT------ 13:25:54 Final Timeout: patient, procedure, and site verified with staff and physician. All members of the team are in agreement. 13:28:59 procedure started, lido 1% into rt arm. 13:30:11 Venous access obtained using ultrasound guidance. 13:41:50 TREVIZO 260 wire (S33202) opened to sterile field. 13:41:58 INFLATOR BasixTOUCH (AE0989) opened to sterile field. 13:42:15 GLIDE WIRE .038 180cm ANGLED (JE6770) opened to sterile field. 13:43:25 St Shilo 7FR sheath opened to sterile field. 13:43:55 Inflate balloon Inflation number: 1 A Evercross 6 x 6 x 135 Balloon ([id number]) was prepped and advanced across the Undefined1 , then inflated . 13:50:28 Inflate balloon Inflation number: 2 A Evercross 8 x 4 x 135 Balloon ([id number]) was prepped and advanced across the Undefined1 , then inflated . 13:52:33 Heparin Bolus 3000 units I.V. was administered by rowena; for anticoagulation; 14:01:15 Inflate balloon Inflation number: 3 A Evercross 12 x 40 x 135 ([id number]) was prepped and advanced across the Undefined1 , then inflated . 14:12:02 Procedure ended.(Physican Out) 14:13:19 Fluoroscopy time 09.00 minutes. 14:13:25 Fluoroscopy dose: 408 mGy 14:13:25 Flurop Dose total: 408 14:14:04 Contrast amount:Isovue 300 105ml. 14:14:18 Procedure and supply charges have been captured, reviewed, submitted an d are correct. 14:17:34 Report given to [facility]. 14:23:54 Patient transfered to [facility] with Bed. 14:24:19 Full Disclosure recording stopped Intervention Summary Intervention Notes Time ActionType Lesion and Equipment Used Action# Pressure Duration Attributes 13:43:55 Inflate Undefined1 Evercross 6 x 6 1 0 00:00 balloon x 135 Balloon ([id number]) 13:50:28 Inflate Undefined1 Evercross 8 x 4 2 0 00:00 balloon x 135 Balloon ([id number]) 14:01:15 Inflate Undefined1 Evercross 12 x 3 0 00:00 balloon 40 x 135 ([id number]) Device Usage Item Name Manufacture Quantity Catalog Number Hospital Part Current M inimal Lot# / Charge Number Stock Stock Serial# Code Tegaderm 4 x 4 3M 1 1626W [id number] [id number] [id number] 5 (1626W) Sterile Cardinal 1 [id number] 561624 482903 5 Angiographic Health Pack Bag Decanter Microtek 1 2001S 609639 21382 097738 5 () [employer] Inc. SHEATH 8FR [facility] St Shilo 1 094731 409504 708840 575175 5 Shilo (491555) DOC .035 wire Cook [employer] 1 F66131 721093 700333 5 (Q34702) Micropuncture VSI VASCULAR 1 7266V 233506 477425 5 VSI 4FR kit SOLUTIONS GLIDE CATHETER Terumo 1 CG507 420164 528833 5 5FR ANGLED 65cm (CG507) SHEATH 5FR Terumo 1 HNO912 043785 394412 900088 5 Delmar (ZYO194) TREVIZO 260 wire [employer] 1 H29963 023798 67548 708081 5 (D87869) INFLATOR Merit 1 ZC1940 450230 988425 956983 5 [facility] (SU4164) GLIDE WIRE .038 Terumo 1 DU6562 116922 843474 5 180cm ANGLED (WP4159) St Shilo 7FR St Shilo 1 049853 278020 831399 5 sheath Evercross 6 x 6 Medtronic 1 [id number] 995976 409669 5 x 135 Balloon ([id number]) Evercross 8 x 4 Medtronic 1 [id number] 088094 947432 265027 5 x 135 Balloon ([id number]) Evercross 12 x Medtronic 1 [id number] 760958 630952 474380 5 40 x 135 ([id number]) Signature Audit [place] Stage Time Signature Unsigned Intra-Procedure 06/24/2019 Carmelina Thomson 2:25:55 PM RT(R) Signatures Monitor : Carmelina Thomson RT Signature : Date : Time : [id number] [place] [address]
[~2019-06-22 13:08] MED LIST changes: +ACETAMINOPHEN325 MG PO; +EMLA CREAM 30 G30 G1 TOPICAL; +HYDROCODON-ACE1 EAC7 PO; +MOBIC7.5 MG PO
--- NOTE | 2019-06-22 17:33 | NUR ---
PT RESTING QUIETLY IN BED WITH EYES CLOSED. RESPIRATIONS EVEN AND UNLABORED. NO ACUTE DISTRESS NOTED, WILL CONTINUE TO MONITOR FOR CHANGES.
[2019-06-22 17:38] LABS: BASOPHILS 0.1 % (0-2); EOSINOPHILS 6.7 % (0-7); HEMATOCRIT 33.5 % (42.0-54.0); HEMOGLOBIN 11.5 g/dL (13.5-17.5); IMMATURE GRANULOCYTES 1.1 % (0-5); MCH 33.8 pg (26.0-34.0); MCHC 34.3 g/dL (31.0-37.0); MCV 98.5 fL (80.0-100.0); MEAN PLATELET VOLUME 10.1 fL (7.4-10.4); MONOCYTES 14.3 % (2-11); NEUTROPHILS 63.8 % (40-80); RDW 13.7 % (11.5-14.5); WBC 9.4 10x3/uL (4.8-10.8)
[2019-06-22 17:39] LABS: PLATELET COUNT 189 10x3/uL (130-400)
[2019-06-22 17:57] LABS: ANION GAP 19.2 mmol/L (8-16); BILIRUBIN - TOTAL 0.31 mg/dL (0.2-1.3); CALCIUM 8.5 mg/dL (8.5-10.1); CARBON DIOXIDE 27.2 mmol/L (21.0-32.0); CREATININE - SERUM 9.8 mg/dL (0.6-1.3); PROTEIN - SERUM 6.9 g/dL (6.4-8.2)
[2019-06-22 17:59] LABS: POTASSIUM - SERUM 6.4 mmol/L (3.5-5.1)
--- NOTE | 2019-06-22 19:11 | NUR ---
REPORT TO JOCELIN LUNDBERG
--- NOTE | 2019-06-22 21:05 | NUR ---
ARIVES FROM ER VIA STRETCHER TO BED LOW AND LOCKED X2 ASSIST SRX3 AND LEN ALARM PLACED TO BED PT IS CONFUSED AND DOES NOT ANSWER DIRECT QUESTIONS WELL LCTA SKIN WARM AND DRY.
[2019-06-22] MEDS ORDERED: XANAX0.5 MG PO (21:53)
--- NOTE | 2019-06-22 22:01 | NUR ---
ORDERS NOTED UNABLE TO OBTAIN TELEMETRY AT THIS TIME
[2019-06-23 03:23] VITALS: BP 182/65; BMI 21.0
--- NOTE | 2019-06-23 03:40 | NUR ---
I have reviewed this pt and i concur with the shift assessment conducted by the licensed practical nurse during this shift.
[2019-06-23 04:30] VITALS: BP 141/70
[2019-06-23 05:40] LABS: BASOPHILS 0.1 % (0-2); EOSINOPHILS 7.1 % (0-7); HEMATOCRIT 31.8 % (42.0-54.0); HEMOGLOBIN 10.9 g/dL (13.5-17.5); LYMPHOCYTES 15.1 % (15-50); MCH 33.4 pg (26.0-34.0); MCHC 34.3 g/dL (31.0-37.0); MCV 97.5 fL (80.0-100.0); MEAN PLATELET VOLUME 9.9 fL (7.4-10.4); MONOCYTES 14.3 % (2-11); NEUTROPHILS 62.4 % (40-80); PLATELET COUNT 187 10x3/uL (130-400); RBC 3.26 10x6/uL (4.20-6.10); RDW 13.6 % (11.5-14.5); WBC 8.3 10x3/uL (4.8-10.8)
[2019-06-23 06:13] LABS: ANION GAP 20.8 mmol/L (8-16); CALCIUM 8.5 mg/dL (8.5-10.1); CARBON DIOXIDE 24.2 mmol/L (21.0-32.0); CREATININE - SERUM 10.5 mg/dL (0.6-1.3); MAGNESIUM - SERUM 2.3 mg/dL (1.8-2.4)
[2019-06-23 08:25] VITALS: BP 173/71
--- NOTE | 2019-06-23 10:24 | NUR ---
PT JASE AND BEING UNCOOPERATIVE WITH BREATHING TX.
--- NOTE | 2019-06-23 11:22 | NUR ---
TO DIALYSIS VIA BED
--- NOTE | 2019-06-23 12:00 | NUR ---
RETURNED TO ROOM VIA BED. DRESSING TO THORACENTESIS SITE RIGHT UPPER POSTERIOR CHEST C/D/I. SPO2 READINGS ANY WHERE FROM 68 TO 76. PT IS A/A/OX4. FINGERS COLD BUT BLANCHABLE. SHE IS ON TRILOGY WITH 02 INPUT OF 9L/M. JANICE PIZANO NOTIFIED OF PT CONDITION AND ORDERS RECEIVED FOR ABGS WHICH SHOWED PO2 OF 39.1. ORDERS RECEIVED TO TRANSFER PT TO ICU AND MOVED TO 2305. REPORT GIVEN TO JOSE ALFREDO.
[2019-06-23 12:04] LABS: INR 1.17 (0.85-1.17); PROTIME 14.4 SECONDS (11.6-15.0)
[2019-06-23 15:09] VITALS: Ht 182.9 cm; Wt 70.3 kg
[2019-06-23 15:33] VITALS: BP 127/60
--- NOTE | 2019-06-23 17:28 | NUR ---
I have reviewed this patient and I concur with the Shift Assessment completed by the Licensed Practical Nurse today this shift.
--- NOTE | 2019-06-23 19:02 | NUR ---
PT IS AWAKEW AND CONFUSED SKIN WARM AND DRY PT HOLLERS WHEN TOUCHED BED IS LOW AND LOCKED WITH SRX3 AND LEN MAT IN PLACE CALL LIGHT IS IN REACH
--- NOTE | 2019-06-23 19:16 | NUR ---
PT IS NOT ORIENTEED AT THIS TIME WILL NOT FOLLOW COMANDS OR ANSWER QUESTIONS AND IS NOT ABLE TO SIGN CONSENTS FOR SURGICAL PROCEDURE SEVERAL ATTEMPTS HAVE BEEN MADE TO CONTACT FAMILY BUT TO NO AVALE I MADE MY CHARGE AND E COMMERCE MANAGER AWARW OF THIS SITUATION
[2019-06-23 20:00] VITALS: BP 135/54
[2019-06-24] VITALS: BP 129/64
[2019-06-24 04:30] VITALS: BP 138/92
[2019-06-24 05:03] LABS: HEMATOCRIT 30.2 % (42.0-54.0); HEMOGLOBIN 10.3 g/dL (13.5-17.5); MCH 33.4 pg (26.0-34.0); MCHC 34.1 g/dL (31.0-37.0); MCV 98.1 fL (80.0-100.0); MEAN PLATELET VOLUME 10.2 fL (7.4-10.4); PLATELET COUNT 194 10x3/uL (130-400); RBC 3.08 10x6/uL (4.20-6.10); RDW 13.8 % (11.5-14.5)
[2019-06-24 05:26] LABS: ANION GAP 14.1 mmol/L (8-16); CALCIUM 8.4 mg/dL (8.5-10.1); CARBON DIOXIDE 29.5 mmol/L (21.0-32.0); PHOSPHOROUS 6.3 mg/dL (2.5-4.9)
[2019-06-24 05:27] LABS: CREATININE - SERUM 7.6 mg/dL (0.6-1.3); POTASSIUM - SERUM 4.6 mmol/L (3.5-5.1)
[2019-06-24 06:08] LABS: EOSINOPHILS 7 % (0-7); LYMPHOCYTES 14 % (15-50); MONOCYTES 8 % (2-11); NEUTROPHILS 67 % (40-80)
[2019-06-24 06:09] LABS: PLATELET ESTIMATE DECREASED
--- NOTE | 2019-06-24 07:40 | NUR ---
PATIENT HAS BEEN CONFUSED. LAST NIGHT HE WAS ALERT TO NAME ONLY. NOW HE KNOWS WHAT CITY HE IS IN BUT HE DOES NOT KNOW WHICH HOSPITAL. PATIENT REPORTS THAT HE HAS PAIN IN HIS RIGHT ARM. HE IS CONFUSED ABOUT THE PROCEDURE. HE IS SUPPOSED TO BE GETTING A THROMBECTOMY TODAY. NURSE FROM YESTERDAY AND LAST NIGHT ATTEMPTED TO CALL FAMILY LISTED AND THE PHONE ANSWERING MACHINE SAYS THAT THE PERSON BEING CALLED IS NOT ACCEPTING CALLS AT THIS TIME. I WILL REPORT TO REVENUE CYCLE ADMINISTRATOR.
--- NOTE | 2019-06-24 08:04 | NUR ---
PATIENT DOES NOT KNOW WHO THE QUILTING SUPERVISOR IS, AND HE THINKS IT IS 1983. HIS DAUGHTER IS NOT ANSWERING HER PHONE.
[2019-06-24 08:33] LABS: APTT 40.2 SECONDS (22.8-39.4); INR 1.06 (0.85-1.17); PROTIME 13.3 SECONDS (11.6-15.0)
--- NOTE | 2019-06-24 09:29 | NUR ---
NO ANSWER AT THE [facility] TO TRY TO GET A BETTER PHONE NUMBER FOR THE DAUGHTER, NEXT OF [place], OR A ADDRESS. CALLED [facility]IL[facility] AND SHE TOLD ME TO CALL THE DR AND SEE IF THEY CAN SIGN THE CONSENT . WILL CONTACT RENAL DR VISION REHABILITATION THERAPIST.
--- NOTE | 2019-06-24 09:52 | NUR ---
GOT A HOLD OF THE PATIENT DAUGHTER , NICKI REINA # [id number]. SHE IS GOING TO COME UP AND SIGN THE CONSENTS WITHIN THE HOUR.
[2019-06-24 09:59] VITALS: BP 138/78
--- NOTE | 2019-06-24 11:32 | NUR ---
PATIENT IS RESTING QUIETLY AT THIS TIME. DAUGHTER AT BEDSIDE. CONSENTS HAVE BEEN SIGNED. ERICH DONG IS BEING DONE BY MARCELO SHORTLY.
--- NOTE | 2019-06-24 12:44 | NUR ---
PATIENT HAS GONE TO SURGERY. FLUIDS SPIKED AND WITH PATIENT. IV IS IN LEFT HAND, WHEN THE PATIENT SEES THE IV GETTING MESSED WITH, HE CA OUT. WHEN FLUID IS GOING IN AND HE CAN NOT SEE IT , HE DOES NOT RESPOND. BED BATH WITH ERICH DONG COMPLETED. ECG IN CHART. CONSENTS SIGNED, AND PREOPMEDICATIONS ADMINISTERED. PATIENT GOES FROM YELLING OUT ANGRY, TO SMILING AND SWEET WITHIN SECONDS.
--- NOTE | 2019-06-24 14:39 | NUR ---
PATIENT RETURNED FROM HIS PROCEDURE. B/P IS 126/59, PULSE IS 75 , OXYGEN SATURATION IS 98%, RESPIRATIONS 16. HE IS ON 2 L NASAL CANNULA JUST UNTIL HE WAKES UP ALL THE WAY. HE IS STILL VERY LETHARGIC. THERE IS A DRESSING ON HIS RIGHT ARM. THEY USED A BALLOON AND OPENED SOME NARROWING VEINS. PATIENT IS RESTING QUIETLY AT THIS TIME.
[2019-06-24 17:31] VITALS: BP 182/80
[2019-06-24 20:00] VITALS: BP 167/89
--- NOTE | 2019-06-24 20:00 | NUR ---
PATIENT LAYING IN BED, EYES CLOSED, CHEST RISING AND FALLING. NO DISTRESS NOTED.
[2019-06-25] VITALS: BP 147/59
--- NOTE | 2019-06-25 02:31 | NUR ---
PATIENT LAYING IN BED. EYES CLOSED, CHEST RISING AND FALLING. NO DISTRESS NOTED.
[2019-06-25 05:43] VITALS: BP 150/52
[2019-06-25 06:22] LABS: BASOPHILS 0.2 % (0-2); EOSINOPHILS 5.3 % (0-7); HEMATOCRIT 28.1 % (42.0-54.0); HEMOGLOBIN 9.6 g/dL (13.5-17.5); IMMATURE GRANULOCYTES 0.7 % (0-5); LYMPHOCYTES 20.5 % (15-50); MCH 33.2 pg (26.0-34.0); MCHC 34.2 g/dL (31.0-37.0); MCV 97.2 fL (80.0-100.0); MEAN PLATELET VOLUME 9.9 fL (7.4-10.4); MONOCYTES 16.5 % (2-11); NEUTROPHILS 56.8 % (40-80); PLATELET COUNT 174 10x3/uL (130-400); RBC 2.89 10x6/uL (4.20-6.10); RDW 13.8 % (11.5-14.5); WBC 5.9 10x3/uL (4.8-10.8)
[2019-06-25 06:43] LABS: ANION GAP 17.9 mmol/L (8-16); CALCIUM 8.5 mg/dL (8.5-10.1); CARBON DIOXIDE 26.5 mmol/L (21.0-32.0); CREATININE - SERUM 9.3 mg/dL (0.6-1.3)
[2019-06-25 06:47] LABS: PHOSPHOROUS 8.9 mg/dL (2.5-4.9); POTASSIUM - SERUM 5.4 mmol/L (3.5-5.1)
--- NOTE | 2019-06-25 07:10 | NUR ---
PATIENT IS RESTING WITH EYES CLOSED. BED IS IN LOW POSITION AND CALL LIGHT IS IN REACH. IV IS TO THE LEFT HAND AND IS SALINE LOCKED. PATIENT WILDA ANY NEEDS AT THIS TIME. DIET IS UPGRADED TO A RENAL DIET FROM SURGERY YESTERDAY. PATIENT DENIES ANY PAIN AT THIS TIME
[2019-06-25 09:16] VITALS: BP 157/70
[2019-06-25 16:45] VITALS: BP 135/60
[2019-06-25 21:25] VITALS: BP 139/64
[2019-06-26 00:57] VITALS: BP 154/60
--- NOTE | 2019-06-26 03:37 | NUR ---
I have reviewed this patient and I concur with the Shift Assessment completed by the Licensed Practical Nurse today this shift.
[2019-06-26 06:45] VITALS: BP 142/82
[2019-06-26 06:47] VITALS: BP 165/59
[2019-06-26 06:51] LABS: ANION GAP 15.2 mmol/L (8-16); CALCIUM 8.4 mg/dL (8.5-10.1); CARBON DIOXIDE 28.3 mmol/L (21.0-32.0); CREATININE - SERUM 7.7 mg/dL (0.6-1.3)
[2019-06-26 06:53] LABS: POTASSIUM - SERUM 4.5 mmol/L (3.5-5.1)
[2019-06-26 07:15] LABS: HEMATOCRIT 30.8 % (42.0-54.0); HEMOGLOBIN 10.6 g/dL (13.5-17.5); MCH 33.9 pg (26.0-34.0); MCHC 34.4 g/dL (31.0-37.0); MCV 98.4 fL (80.0-100.0); MEAN PLATELET VOLUME 10.6 fL (7.4-10.4); PLATELET COUNT 184 10x3/uL (130-400); RBC 3.13 10x6/uL (4.20-6.10); RDW 13.8 % (11.5-14.5); WBC 6.1 10x3/uL (4.8-10.8)
--- NOTE | 2019-06-26 07:43 | NUR ---
PT LYING IN BED WIHT HOB ELEVATED. WATCHING TV. LEFT HAND 20G SL. ROOM AIR. BED LOW. CL IN REACH. PT HAS NO FURTHER NEEDS AT THIS TIME.
[2019-06-26 08:59] LABS: ANISOCYTOSIS OCC; EOSINOPHILS 9 % (0-7); LYMPHOCYTES 19 % (15-50); MONOCYTES 23 % (2-11); NEUTROPHILS 46 % (40-80); PLATELET ESTIMATE NORMAL; PLATELET MORPHOLOGY PLT CLUMPS PRESENT
--- NOTE | 2019-06-26 09:12 | MORECARE ---
CASE MANAGEMENT DISCHARGE SUMMARY PATIENT: BRYANT ESPANA UNIT: [id number] ADM DATE: 06/22/19 AGE: 79 : 39 SEX: M ROOM/BED: D.2133 AUTHOR: JAYDEN HINOJOSA PHYSICIAN: REFERRING PHYSICIAN: FLORIDA CUETO MD DATE OF SERVICE: 06/26/19 Discharge Plan Patient Name: BRYANT ESPANA [facility] [facility] 1940 Planned Disposition: Nursing Facility [facility] Cert Anticipated Discharge Date: 06/26/19 Discharge Date: Expected LOS: 4 Initial Reviewer: [email or web address] Initial Review Date: 06/26/2019 Generated: 06/26/19 10:12 am External [facility] Date: 06/26/2019 Service Request Date: Service Type: Resolution: Reviewer: Comments: Coverage Notice Reviewer: ALEJANDRINA Preston Notice Issued Date-Time: 06/26/2019 8:40 Notice Type: IM Discharge Notice Notice Delivered To: Patient Relationship to Patient: Sewing Machine Attachment Tester Name: Delivery Method: HAND - Hand Delivered Mona Days: Prior Verbal Notification: Recipient Understood Notice: Yes Recipient Signature: Yes Med Rec Note Co-signed by Attending: Coverage Notice Comment: Reviewer: ALEJANDRINA Preston Notice Issued Date-Time: 06/26/2019 8:40 Notice Type: Patient Choice Letter Notice Delivered To: Patient Relationship to Patient: Sewing Machine Attachment Tester Name: Delivery Method: HAND - Hand Delivered Mona Days: Prior Verbal Notification: Recipient Understood Notice: Yes Recipient Signature: Yes Med Rec Note Co-signed by Attending: Coverage Notice Comment: [facility] Patient Name: BRYANT ESPANA Page 90013 at 0912 All edits/amendments must be made on the electronic document DICTATION DATE: 06/26/19911 MULTIMEDIA AUTHOR: ZOE 06/26/19911 RPT#: [id number] DC DATE: STATUS: ADM IN [facility] [address] [place] [address] END OF REPORT
--- NOTE | 2019-06-26 09:18 | MORECARE ---
CASE MANAGEMENT DISCHARGE SUMMARY PATIENT: BRYANT ESPANA UNIT: [id number] ADM DATE: 06/22/19 AGE: 79 : 39 SEX: M ROOM/BED: D.2133 AUTHOR: JAYDEN HINOJOSA PHYSICIAN: REFERRING PHYSICIAN: FLORIDA CUETO MD DATE OF SERVICE: 06/26/19 Discharge Plan Patient Name: [facility]ANT ESPANA [facility] [facility] 1940 Planned Disposition: Nursing Facility [facility] Cert Anticipated Discharge Date: 06/26/19 Discharge Date: Expected LOS: 4 Initial Reviewer: [email or web address] Initial Review Date: 06/26/2019 Generated: 06/26/19 10:18 am Coverage Notice Reviewer: [id number] Preston Notice Issued Date-Time: 06/26/2019 8:40 Notice Type: IM Discharge Notice Notice Delivered To: Patient Relationship to Patient: Senior Applications Engineer Name: Delivery Method: HAND - Hand Delivered Mona Days: Prior Verbal Notification: Recipient Understood Notice: Yes Recipient Signature: Yes Med Rec Note Co-signed by Attending: Coverage Notice Comment: Reviewer: [id number] Preston Notice Issued Date-Time: 06/26/2019 8:40 Notice Type: Patient Choice Letter Notice Delivered To: Patient Relationship to Patient: Senior Applications Engineer Name: Delivery Method: HAND - Hand Delivered Mona Days: Prior Verbal Notification: Recipient Understood Notice: Yes Recipient Signature: Yes Med Rec Note Co-signed by Attending: Coverage Notice Comment: [facility] DP export: 06/26/19 8:12 a Patient Name: BRYANT ESPANA Page [phone] at 0918 All edits/amendments must be made on the electronic document DICTATION DATE: 06/26/19917 CHILD DAY CARE PROVIDER: ZOE 06/26/19917 RPT#: [id number] DC DATE: STATUS: ADM IN [facility] [address] [place] [address] END OF REPORT
--- NOTE | 2019-06-26 09:26 | MORECARE ---
CASE MANAGEMENT DISCHARGE SUMMARY PATIENT: BRYANT ESPANA UNIT: [id number] ADM DATE: 06/22/19 AGE: 79 : 39 SEX: M ROOM/BED: D.2133 AUTHOR: ASHISH,DOC PHYSICIAN: REFERRING PHYSICIAN: FLORIDA CUETO MD DATE OF SERVICE: 06/26/19 Discharge Plan Patient Name: BRYANT ESPANA Facility: [facility]:[place] : 1940 Planned Disposition: Nursing Facility [facility] Cert Anticipated Discharge Date: 06/26/19 Discharge Date: Expected LOS: 4 Initial Reviewer: [email or web address] Initial Review Date: 06/26/2019 Generated: 06/26/19 10:26 am DCPIA - Discharge Planning Initial Assessment Updated by [email or web address]: Romeo Preston on 06/26/19 9:19 am * Is the patient Alert and Oriented? Yes * How many steps to enter\exit or inside your home? NONE * PCP DR. PORTER * [facility]acy [facility] [place] * Preadmission Environment Entry Tech Detention * Facility Name [facility] * ADLs Partial Dependent * Partial ADLs (Assistance needed) Ambulation Bathing Dressing Medication Management Toileting Transfers * Equipment Wheelchair * Other Equipment ALL MEDICAL EQUIPMENT PROVIDED BY FACILITY * List name and contact numbers for known caregivers / representatives who currently or will assist patient after discharge: CATRACHITO ESPANA, DTR, * Verbal permission to speak to the caregivers and representatives has been obtained from the patient. N/A * Community resources currently utilized Other * Please name any agencies selected above. OUTPATIENT DIALYSIS, [facility], TTS, 0600AM, [facility] * Additional services required to return to the preadmission environment? No * Can the patient safely return to the preadmission environment? Yes * Has this patient been hospitalized within the prior 30 days at any hospital? No Coverage Notice Reviewer: ALEJANDRINA Preston Notice Issued Date-Time: 06/26/2019 8:40 Notice Type: IM Discharge Notice Notice Delivered To: Patient Relationship to Patient: Medical Oncologist Name: Delivery Method: HAND - Hand Delivered Mona Days: Prior Verbal Notification: Recipient Understood Notice: Yes Recipient Signature: Yes Med Rec Note Co-signed by Attending: Coverage Notice Comment: Reviewer: ALEJANDRINA Walters Mohan Notice Issued Date-Time: 06/26/2019 8:40 Notice Type: Patient Choice Letter Notice Delivered To: Patient Relationship to Patient: Medical Oncologist Name: Delivery Method: HAND - Hand Delivered Mona Days: Prior Verbal Notification: Recipient Understood Notice: Yes Recipient Signature: Yes Med Rec Note Co-signed by Attending: Coverage Notice Comment: [facility] DP export: 06/26/19 8:19 a Patient Name: BRYANT ESPANA Page [phone] at 0926 All edits/amendments must be made on the electronic document DICTATION DATE: 06/26/19925 DINKEY LOCOMOTIVE ENGINEER: ZOE 06/26/19925 RPT#: [id number] DC DATE: STATUS: ADM IN [facility] [address] [place] [address] END OF REPORT
--- NOTE | 2019-06-26 09:34 | MORECARE ---
CASE MANAGEMENT DISCHARGE SUMMARY PATIENT: BRYANT ESPANA UNIT: [id number] ADM DATE: 06/22/19 AGE: 79 : 39 SEX: M ROOM/BED: D.2133 AUTHOR: ASHISH,DOC PHYSICIAN: REFERRING PHYSICIAN: FLORIDA CUETO MD DATE OF SERVICE: 06/26/19 Discharge Plan Patient Name: BRYANT ESPANA [facility] [facility] 1940 Planned Disposition: Nursing Facility [facility] Cert Anticipated Discharge Date: 06/26/19 Discharge Date: Expected LOS: 4 Initial Reviewer: [id number] Initial Review Date: 06/26/2019 Generated: 06/26/19 10:34 am Comments DCP- Discharge Planning Updated by [email or web address]: Romeo Preston on 06/26/19 8:[address] Patient Name: BRYANT ESPANA Admission Status: ER Accout number: [id number] Admission Date: 06-22-2019 : 1940 Admission Diagnosis:ACUTE EMBOLISM AND THROMBOSIS OF DEEP VEINS OF R UP EXT Attending: FLORIDA CUETO Current LOS: 4 Anticipated DC Date: 06-26-2019 Planned Disposition: Nursing Facility [facility] Cert Primary Insurance: MEDICARE A & B PLANNED EXTERNAL PROVIDER: [facility], MEDICARE REHAB BED Discharge Planning Comments: CM MET WITH PT IN ROOM TO DISCUSS DISCHARGE PLANNING AND NEEDS. PT REPORTS LIVING AT THE [facility] AND PLANS TO RETURN THERE TODAY. PT USES WHEELCHAIR, ALL MEDICAL EQUIPMENT PROVIDED BY [facility]. THE FACILITY TRANSPORTS PT TO AND FROM [facility], [facility], [facility], 0600AM. PT DENIES DISCHARGE NEEDS, REPORTS HE CAN RIDE IN VAN FOR [facility] TO PICK HIM UP FOR DISCHARGE HOME. IMPORTANT MESSAGE FROM MEDICARE PROVIDED AND EXPLAINED. CM NOTIFIED CR[facility] OF [facility], , WHO ADVISED PT WILL RETURN TO THE [facility] IN A SKILLED BED. PT LIVES AT THE [facility]. CM FAXED REFERRAL AND DISCHARGE INFORMATION TO [facility] VIA CRIS AT [phone]. CATERING CONVENTION SERVICES MANAGER NOTIFIED. NURSE REPORT TO BE CALLED TO THE [facility] AT [phone]. PT TO BE TRANSPORTED VIA [facility] ARRANGED BY [facility]. Regeneration Operator: Romeo Preston DCPIA - Discharge Planning Initial Assessment Updated by [id number]: Romeo Preston on 06/26/19 9:19 am * Is the patient Alert and Oriented? Yes * How many steps to enter\exit or inside your home? NONE * PCP DR. PORTER * Pharmacy [facility] [place] * Preadmission Environment [facility] * Facility Name [facility] * ADLs Partial Dependent * Partial ADLs (Assistance needed) Ambulation Bathing Dressing Medication Management Toileting Transfers * Equipment Wheelchair * Other Equipment ALL MEDICAL EQUIPMENT PROVIDED BY FACILITY * List name and contact numbers for known caregivers / representatives who currently or will assist patient after discharge: CATRACHITO MALORIE, DTR, * Verbal permission to speak to the caregivers and representatives has been obtained from the patient. N/A * Community resources currently utilized Other * Please name any agencies selected above. OUTPATIENT DIALYSIS, [facility], [facility], 0600AM, [facility] * Additional services required to return to the preadmission environment? No * Can the patient safely return to the preadmission environment? Yes * Has this patient been hospitalized within the prior 30 days at any hospital? No Coverage Notice Reviewer: [id number] Regina Preston Notice Issued Date-Time: 06/26/2019 8:40 Notice Type: IM Discharge Notice Notice Delivered To: Patient Relationship to Patient: Grocery Packer Name: Delivery Method: HAND - Hand Delivered Mona Days: Prior Verbal Notification: Recipient Understood Notice: Yes Recipient Signature: Yes Med Rec Note Co-signed by Attending: Coverage Notice Comment: Reviewer: [id number] Regina Preston Notice Issued Date-Time: 06/26/2019 8:40 Notice Type: Patient Choice Letter Notice Delivered To: Patient Relationship to Patient: Grocery Packer Name: Delivery Method: HAND - Hand Delivered Mona Days: Prior Verbal Notification: Recipient Understood Notice: Yes Recipient Signature: Yes Med Rec Note Co-signed by Attending: Coverage Notice Comment: [facility] Last DP export: 06/26/19 8:26 a Patient Name: BRYANT ESPANA Page [phone] at 0934 All edits/amendments must be made on the electronic document DICTATION DATE: 06/26/19933 PANEL WIRER: ZOE 06/26/19933 RPT#: [id number] DC DATE: STATUS: ADM IN [facility] [address] [place] [address] END OF REPORT
--- NOTE | 2019-06-26 12:08 | NUR ---
LEFT HAND 20G IV DC'D WITH CATH INTACT. REPORT CALLED TO JEREMIAH CHAU AT THE [facility]
--- NOTE | 2019-06-26 12:13 | NUR ---
DISCHARGED PAPERWORK EXPLAIEND TO PT. PT VERBALIZED UNDERSTANDING. PT DC WITH [facility] STAFF MEMBER VIA WC AND DRIVEN IN THEIR VAN.
== END 2019-06-26 12:14 | DRG 252 ==
LOC: D.ER 13:08 → D.M2 18:49
PROVIDERS: Family Medicine; General Practice; Internal Medicine Nephrology; Radiology Vascular & Interventional Radiology; ADMIT Internal Medicine Nephrology; ATTEND Internal Medicine Nephrology
PROC: 5A1D70Z Performance of Urinary Filtration, Intermittent, Less than 6 Hours Per Day (ICD-10-PCS; 2019-06-23)
PROC: 05793ZZ Dilation of Right Brachial Vein, Percutaneous Approach (ICD-10-PCS; 2019-06-24)
PROC: B51W1ZZ Fluoroscopy of Dialysis Shunt/Fistula using Low Osmolar Contrast (ICD-10-PCS; 2019-06-24)
PROC: 057D3ZZ Dilation of Right Cephalic Vein, Percutaneous Approach (ICD-10-PCS; principal; 2019-06-24 12:51)
DX: T82.868A Thrombosis due to vascular prosthetic devices, implants and grafts, initial encounter (principal); N18.6 End stage renal disease; I12.0 Hypertensive chronic kidney disease with stage 5 chronic kidney disease or end stage renal disease; E11.22 Type 2 diabetes mellitus with diabetic chronic kidney disease; Z99.2 Dependence on renal dialysis; F03.90 Unspecified dementia, unspecified severity, without behavioral disturbance, psychotic disturbance, mood disturbance, and anxiety; E87.5 Hyperkalemia; D63.1 Anemia in chronic kidney disease; Z87.891 Personal history of nicotine dependence; Y83.8 Other surgical procedures as the cause of abnormal reaction of the patient, or of later complication, without mention of misadventure at the time of the procedure

== ENCOUNTER 2019-07-08 22:11 | Inpatient (IN) | payer MEDICARE ==
[~2019-07-08] VITALS: Ht 182.9 cm; Wt 91.1 kg
[~2019-07-08 22:11] MED LIST changes: +XANAX0.5 MG PO
[2019-07-08 22:52] LABS: BASOPHILS 0.1 % (0-2); EOSINOPHILS 0.7 % (0-7); HEMATOCRIT 28.5 % (42.0-54.0); HEMOGLOBIN 9.9 g/dL (13.5-17.5); IMMATURE GRANULOCYTES 0.6 % (0-5); LYMPHOCYTES 10.6 % (15-50); MCHC 34.7 g/dL (31.0-37.0); MCV 97.9 fL (80.0-100.0); MEAN PLATELET VOLUME 10.6 fL (7.4-10.4); MONOCYTES 15.6 % (2-11); NEUTROPHILS 72.4 % (40-80); PLATELET COUNT 189 10x3/uL (130-400); RBC 2.91 10x6/uL (4.20-6.10); RDW 13.9 % (11.5-14.5)
[2019-07-08 23:08] LABS: ALBUMIN 3.4 g/dL (3.4-5.0); ANION GAP 26.4 mmol/L (8-16); BILIRUBIN - TOTAL 0.47 mg/dL (0.2-1.3); CALCIUM 8.3 mg/dL (8.5-10.1); CARBON DIOXIDE 20.7 mmol/L (21.0-32.0); CREATININE - SERUM 13.2 mg/dL (0.6-1.3); PROTEIN - SERUM 7.6 g/dL (6.4-8.2)
[2019-07-08 23:40] LABS: POTASSIUM - SERUM 8.1 mmol/L (3.5-5.1)
--- NOTE | 2019-07-08 23:43 | NUR ---
LAB CALLED REPORT FOR POTASSIUM 8.1. NOTIFIED EDP MOMO
[2019-07-09] VITALS (23 sets, daily range): BP systolic 90–184; BP diastolic 58–84; Ht 182.9 cm; Wt 91.1 kg
--- NOTE | 2019-07-09 02:48 | NUR ---
PT ADMIT VIA ER STAFF. HE IS CONFUSED TO TIME, PLACE AND SITUATION. PERRLA, 3 MM, BRISK REACTION TO LIGHT. NC ON @ 2L/MIN. MUCOUS MEMBRANES MOIST, ENDENTULOUS. S1S2 AUDIBLE, HR 75, NSR SHOWING ON MONITOR. RR EVEN AND UNLABORED, CLEAR LUNG SOUNDS HEARD BILAT THROUGHOUT ALL LOBES. ABD ROUND AND SOFT TO TOUCH, BS ACTIVE X4. LOWE CATH INTACT DRAINING CLEAR YELLOW URINE. SCDS ON, RADIAL AND PEDAL PULSES PALP. R ARM RESERVE, SIGNS POSTED IN ROOM. FISTULA IN R AC, BRUIT AND THRILL NOTED. L HAND PIV INFUSING BICARB AT 100 ML/HR. HE DENIES ANY PAIN AT THIS TIME. HE IS UNABLE TO ANSWER ANY QUESTIONS AND IS YELLING OUT, REORIENTED. PT IS IN SIGHT OF NURSE'S STATION, BED ALARM ON. NO FURTHER NEEDS AT THIS TIME. WILL CONT WITH POC.
--- NOTE | 2019-07-09 03:34 | NUR ---
MARIA C. DR. PORTER R/T ELEVATED BP.
--- NOTE | 2019-07-09 03:42 | NUR ---
DANIEL DUVALL APN ANSWERED PAGE. NEW ORDERS RECIEVED.
--- NOTE | 2019-07-09 05:00 | NUR ---
PT RESTING PEACEFULLY WITH NO SIGNS OF ACUTE DISTRESS NOTED. VSS. WILL CONT WITH POC.
--- NOTE | 2019-07-09 05:40 | NUR ---
DANIEL DUVALL APN AT BEDSIDE. NEW ORDERS RECIEVED.
[2019-07-09 06:07] LABS: ANION GAP 23.2 mmol/L (8-16); CALCIUM 8.6 mg/dL (8.5-10.1); CREATININE - SERUM 13.2 mg/dL (0.6-1.3)
[2019-07-09 06:08] LABS: POTASSIUM - SERUM 6.2 mmol/L (3.5-5.1)
[2019-07-09 06:28] LABS: MCH 33.6 pg (26.0-34.0); MCHC 34.5 g/dL (31.0-37.0); MCV 97.4 fL (80.0-100.0); MEAN PLATELET VOLUME 10.2 fL (7.4-10.4); PLATELET COUNT 158 10x3/uL (130-400); RDW 13.8 % (11.5-14.5); WBC 8.4 10x3/uL (4.8-10.8)
[2019-07-09 06:35] LABS: HEMATOCRIT 22.3 % (42.0-54.0); HEMOGLOBIN 7.7 g/dL (13.5-17.5); RBC 2.29 10x6/uL (4.20-6.10)
[2019-07-09 06:52] LABS: EOSINOPHILS 2 % (0-7); LYMPHOCYTES 10 % (15-50); MONOCYTES 18 % (2-11); NEUTROPHILS 70 % (40-80); PLATELET ESTIMATE NORMAL
--- NOTE | 2019-07-09 07:00 | NUR ---
DR. MELENDREZ AT BEDSIDE. HD ORDERED FOR TODAY. WILL LET AM NURSE KNOW OF POC.
--- NOTE | 2019-07-09 07:00 | NUR ---
SHIFT ASSESSMENT COMPLETED. PT CARE ASSUMED. MONITORS ON AND WORKING, VITALS STABLE. PT LYING IN BED, DOES NOT ANSWER QUESTIONS WHEN PROMPTED, MUMBLES SOUNDS. R AC FISTULA, BRUIT AND THRILL NOTED. SEE FLOW SHEET FOR FURTHER DETAILS. WILL CONTINUE TO OBSERVE.
--- NOTE | 2019-07-09 09:00 | NUR ---
PT TURNED AND REPOSITIONED FOR COMFORT, MONITORS ON AND WORKING, VITALS STABLE. NO FURTHER CHANGES AT THIS TIME, HD ORDERED FOR TODAY, WILL CONTINUE TO OBSERVE.
--- NOTE | 2019-07-09 11:00 | NUR ---
HD NURSE AT BEDSIDE. MONITORS ON AND WORKING, VITALS STABLE. SEE FLOW SHEET FOR FURTHER DETAILS. WILL CONTINUE TO OBSERVE.
--- NOTE | 2019-07-09 13:00 | NUR ---
MONITORS ON AND WORKING,VITALS STABLE, PT TURNED AND REPOSITIONED FOR COMFORT, HD NURSE AT BEDSIDE, WILL CONTINUE TO OBSERVE.
--- NOTE | 2019-07-09 15:00 | NUR ---
NO CHNAGES, HD NURSE AT BEDSIDE, PT TOLERATING HD WELL, MONITORS ON AND WORKING, SEE FLOW SHEET FOR FURTHER DETIALS. WILL CONTINUE TO OBSERVE.
--- NOTE | 2019-07-09 17:00 | NUR ---
HD NURSE PULLED 1L OF PT. MONITORS ON AND WORKING, VITALS STABLE, PT TURNED AND REPOSITIONED FOR COMFORT, CALL LIGHT WITHIN REACH, WILL CONTINUE TO OBSERVE.
--- NOTE | 2019-07-09 19:59 | MORECARE ---
CASE MANAGEMENT DISCHARGE SUMMARY PATIENT: BRYANT ESPANA UNIT: [id number] ADM DATE: 07/09/19 AGE: 79 : 39 SEX: M ROOM/BED: D.2305 AUTHOR: JAYDEN HINOJOSA PHYSICIAN: REFERRING PHYSICIAN: CLARA PORTER MD DATE OF SERVICE: 07/09/19 Discharge Plan Patient Name: BRYANT ESPANA Facility: [facility]:[place] : 1940 Planned Disposition: Nursing Facility [facility] Cert Anticipated Discharge Date: Discharge Date: Expected LOS: Initial Reviewer: [email or web address] Initial Review Date: 07/09/2019 Generated: 07/09/19 8:58 pm DCPIA - Discharge Planning Initial Assessment Updated by [email or web address]: Effie Valdez on 07/09/19 7:57 pm * Is the patient Alert and Oriented? No * PCP GERMAN * Pharmacy [facility] * Preadmission Environment Custodial Facility * Facility Name [facility] * ADLs Partial Dependent * List name and contact numbers for known caregivers / representatives who currently or will assist patient after discharge: CATRACHITO ESPANA - DAUGHTER- [phone] * Community resources currently utilized None * Please name any agencies selected above. HEMODIALYSIS [facility] @ [facility] * Additional services required to return to the preadmission environment? No * Can the patient safely return to the preadmission environment? Yes * Has this patient been hospitalized within the prior 30 days at any hospital? Yes Patient Name: BRYANT ESPANA Page [phone] at 195 All edits/amendments must be made on the electronic document DICTATION DATE: 07/09/191957 HOSPITAL SOCIAL WORKER: ZOE 07/09/191957 RPT#: [id number] DC DATE: STATUS: ADM IN [facility] [address] [place] [address] END OF REPORT
--- NOTE | 2019-07-09 20:05 | MORECARE ---
CASE MANAGEMENT DISCHARGE SUMMARY PATIENT: BRYANT ESPANA UNIT: [id number] ADM DATE: 07/09/19 AGE: 79 : 39 SEX: M ROOM/BED: D.2305 AUTHOR: ASHISH,DOC PHYSICIAN: REFERRING PHYSICIAN: CLARA PORTER MD DATE OF SERVICE: 07/09/19 Discharge Plan Patient Name: BRYANT ESPANA Facility: [facility]:[place] : 1940 Planned Disposition: Nursing Facility [facility] Cert Anticipated Discharge Date: Discharge Date: Expected LOS: Initial Reviewer: [email or web address] Initial Review Date: 07/09/2019 Generated: 07/09/19 9:05 pm Comments DCP- Discharge Planning Updated by [email or web address]: Effie Valdez on 07/09/19 7:[address] Patient Name: BRYANT ESPANA Admission Status: ER Accout number: [id number] Admission Date: 07-09-2019 : 1940 Admission Diagnosis: Attending: CLARA PORTER Current LOS: 1 Anticipated DC Date: Planned Disposition: Nursing Facility [facility] Cert Primary Insurance: MEDICARE A & B Discharge Planning Comments: CM met with patient at bedside after explaining CM role and obtaining verbal consent. Patient lives at home [facility] and he plans to return there upon discharge. Patient has dialysis [facility] @ [facility] [phone] CM will continue to follow and assist as needed with discharge planning / needs. Network Manager: Effie Valdez DCPIA - Discharge Planning Initial Assessment Updated by [email or web address]: Effie Valdez on 07/09/19 7:57 pm * Is the patient Alert and Oriented? No * PCP GERMAN * Pharmacy [facility] * Preadmission Environment [facility] Facility * Facility Name [facility] * ADLs Partial Dependent * List name and contact numbers for known caregivers / representatives who currently or will assist patient after discharge: CATRACHITO ESPANA - DAUGHTER- [phone] * Community resources currently utilized None * Please name any agencies selected above. [facility]IALYSIS [facility] @ [facility] * Additional services required to return to the preadmission environment? No * Can the patient safely return to the preadmission environment? Yes * Has this patient been hospitalized within the prior 30 days at any hospital? Yes Last DP export: 07/09/19 6:59 p Patient Name: BRYANT ESPANA Page [phone] at 2004 All edits/amendments must be made on the electronic document DICTATION DATE: 07/09/192004 PUMPER HELPER: ZOE 07/09/192004 RPT#: [id number] DC DATE: STATUS: ADM IN [facility] [address] [place], [place] [address] END OF REPORT
[2019-07-10] VITALS (15 sets, daily range): BP systolic 108–163; BP diastolic 45–74
--- NOTE | 2019-07-10 07:00 | NUR ---
SHIFT ASSESSMENT COMPLETED. PT CARE ASSUMED. MONITORS ON AND WORKING, VITALS STABLE. CALL LIGHT WITHIN REACH. SEE FLOW SHEET FOR FURTHER DETAILS. WILL CONTINUE TO OBSERVE.
--- NOTE | 2019-07-10 09:00 | NUR ---
PT TURNED AND REPOSITIONED FOR COMFORT, FAMILY AT BEDSIDE, MONITORS ON AND WORKING, VITALS STABLE. CALL LIGHT WITHIN REACH, WILL CONTINUE TO OBSERVE.
[2019-07-10 09:32] LABS: HEMOGLOBIN 7.9 g/dL (13.5-17.5); MCH 33.8 pg (26.0-34.0); MCHC 32.9 g/dL (31.0-37.0); MCV 102.6 fL (80.0-100.0); MEAN PLATELET VOLUME 9.8 fL (7.4-10.4); PLATELET COUNT 160 10x3/uL (130-400); RBC 2.34 10x6/uL (4.20-6.10); RDW 14.3 % (11.5-14.5); WBC 5.5 10x3/uL (4.8-10.8)
[2019-07-10 09:36] LABS: ANION GAP 15.1 mmol/L (8-16); CALCIUM 8.4 mg/dL (8.5-10.1); CARBON DIOXIDE 30.4 mmol/L (21.0-32.0); CREATININE - SERUM 8.1 mg/dL (0.6-1.3); POTASSIUM - SERUM 4.5 mmol/L (3.5-5.1)
[2019-07-10 09:39] LABS: BASOPHILS 1 % (0-2); EOSINOPHILS 1 % (0-7); LYMPHOCYTES 18 % (15-50); MONOCYTES 15 % (2-11); NEUTROPHILS 62 % (40-80); PLATELET ESTIMATE NORMAL
--- NOTE | 2019-07-10 11:00 | NUR ---
NO CHANGES, ORDERS REC'D TO TRANSFER PT TO FLOOR WHEN ROOM BECOMES AVAILABLE, MONITORS ON AND WORKING, VITALS STABLE. CALL LIGHT WITHIN REACH, WILL CONTINUE TO OBSERVE.
--- NOTE | 2019-07-10 15:21 | NUR ---
RECEIVED PT FROM ICU VIA BED. PT IS AA BUT CONFUSED TO SITUATION. SODIUM BICARB INFUSING @100ML/HR VIA L.HAND PIV. RR EVEN AND UNLABORED ON RA. NO S/S OF DISTRESS NOTED. PT CURRENTLY LYING SEMI FOWLERS. CALL LIGHT W/I REACH. PT DENIES ANY NEEDS AT THIS TIME. WILL CTM.
--- NOTE | 2019-07-10 19:39 | NUR ---
REPORT RECIEVED AND ROUNDING COMPLETE. PATIENT IS NOT IN ROOM AT THIS TIME, PATIENT IS RECIVING DIALYSIS. UPDATED WHITE BOARD IN ROOM.
[2019-07-11] VITALS: BP 125/45
--- NOTE | 2019-07-11 01:59 | NUR ---
I have reviewed this patient and I concur with the Shift Assessment completed by the Licensed Practical Nurse today this shift.
--- NOTE | 2019-07-11 03:38 | NUR ---
PATIENT LAYIGN IN LOW FOWLERS, EYES CLOSED BREATHING EVEN AND UNLABORED, NO DISTRESS NOTED AT THIS TIME. CALL LIGHT WITHIN REACH AND BED IN LOWEST LOCKED POSITION.
[2019-07-11 04:00] VITALS: BP 148/49
[2019-07-11 05:10] LABS: BASOPHILS 0 % (0-2); EOSINOPHILS 7.4 % (0-7); HEMATOCRIT 25.6 % (42.0-54.0); HEMOGLOBIN 8.3 g/dL (13.5-17.5); IMMATURE GRANULOCYTES 0.5 % (0-5); LYMPHOCYTES 20.9 % (15-50); MCH 33.7 pg (26.0-34.0); MCHC 32.4 g/dL (31.0-37.0); MCV 104.1 fL (80.0-100.0); MONOCYTES 23.2 % (2-11); PLATELET COUNT 145 10x3/uL (130-400); RBC 2.46 10x6/uL (4.20-6.10); RDW 14.4 % (11.5-14.5); WBC 4.4 10x3/uL (4.8-10.8)
[2019-07-11 05:22] LABS: ANION GAP 11.4 mmol/L (8-16); CARBON DIOXIDE 33.5 mmol/L (21.0-32.0); POTASSIUM - SERUM 3.9 mmol/L (3.5-5.1)
[2019-07-11 05:29] LABS: CREATININE - SERUM 5.7 mg/dL (0.6-1.3)
--- NOTE | 2019-07-11 07:43 | NUR ---
PT RESTING PEACEFULLY, BREATHS EVEN/REGULAR/UNLABORED, NO FAMILY AT BESDIE. NO ACUTE DISTRESS NOTED AT THIS TIME. CL IN REACH, SRX2.
[2019-07-11 08:13] VITALS: BP 163/60
--- NOTE | 2019-07-11 14:49 | MORECARE ---
CASE MANAGEMENT DISCHARGE SUMMARY PATIENT: BRYANT ESPANA UNIT: [id number] ADM DATE: 07/09/19 AGE: 79 : 39 SEX: M ROOM/BED: D.2392 AUTHOR: JAYDEN HINOJOSA PHYSICIAN: REFERRING PHYSICIAN: CLARA PORTER MD DATE OF SERVICE: 07/11/19 Discharge Plan Patient Name: BRYANT ESPANA Facility: [facility]:[place] : 1940 Planned Disposition: Nursing Facility [facility] Cert Anticipated Discharge Date: Discharge Date: Expected LOS: Initial Reviewer: [email or web address] Initial Review Date: 07/09/2019 Generated: 07/11/19 3:48 pm Comments DCP- Discharge Planning Updated by [id number]: Chantelle Rdz on 07/11/19 1:[address] LATE ENTRY 1210 PATIENT FOR DISCHARGE BACK TO THE [facility] AFTER HEMODIALYSIS. HE IS PRESENTLY IN HD. 1300 TELEPHONE CALL TO THE [facility]. CM SPOKE WITH LIA. HE IS AWAITING PRIMARY NURSE REPORT. HE ALSO WANTED TO KNOW IF THE PATIENT COULD TRAVEL BY WHEELCHAIR. [facility] CAN PROVIDE TRANSPORTATION IF PATIENT CAN TOLERATE A WHEEL CHAIR. AYUSH TO CALL REPORT. 1445 THE PATIENT REMAINS IN HD. AYUSH HAS CALLED REPORT. PLANNING FOR TRANSPORTATION BY THE [facility]. DCP- Discharge Planning Updated by [id number]: Effie Valdez on 07/09/19 7:[address] Patient Name: BRYANT ESPANA Admission Status: ER Accout number: [id number] Admission Date: 07-09-2019 : 1940 Admission Diagnosis: Attending: CLARA PORTER Current LOS: 1 Anticipated DC Date: Planned Disposition: Nursing Facility [facility] Cert Primary Insurance: MEDICARE A & B Discharge Planning Comments: CM met with patient at bedside after explaining CM role and obtaining verbal consent. Patient lives at home [facility] and he plans to return there upon discharge. Patient has dialysis [facility] @ [facility] [phone] CM will continue to follow and assist as needed with discharge planning / needs. Cotton Ginner Helper: Effie Valdez DCPIA - Discharge Planning Initial Assessment Updated by [email or web address]: Effie Valdez on 07/09/19 7:57 pm * Is the patient Alert and Oriented? No * PCP GERMAN * Pharmacy [facility] * Preadmission Environment Snf Facility * Facility Name [facility] * ADLs Partial Dependent * List name and contact numbers for known caregivers / representatives who currently or will assist patient after discharge: CATRACHITO ESPANA - DAUGHTER- [phone] * Community resources currently utilized None * Please name any agencies selected above. HEMODIALYSIS [facility] @ [facility] * Additional services required to return to the preadmission environment? No * Can the patient safely return to the preadmission environment? Yes * Has this patient been hospitalized within the prior 30 days at any hospital? Yes Last DP export: 07/09/19 7:05 p Patient Name: BRYANT ESPANA Page [phone] at 1449 All edits/amendments must be made on the electronic document DICTATION DATE: 07/11/191447 GUARD MANAGER: ZOE 07/11/191447 RPT#: [id number] DC DATE: STATUS: ADM IN [facility] [address] [place] [address] END OF REPORT
--- NOTE | 2019-07-11 16:25 | NUR ---
PT ESCORTED OUT VIA WHEELCHAIR TO [facility]
--- NOTE | 2019-07-13 08:47 | MORECARE ---
CASE MANAGEMENT DISCHARGE SUMMARY PATIENT: BRYANT ESPANA UNIT: [id number] ADM DATE: 07/09/19 AGE: 79 : 39 SEX: M ROOM/BED: D.6408 AUTHOR: JAYDEN HINOJOSA PHYSICIAN: REFERRING PHYSICIAN: CLARA PORTER MD DATE OF SERVICE: 07/13/19 Discharge Plan Patient Name: BRYANT ESPANA Facility: [facility]:[place] : 1940 Planned Disposition: Nursing Facility [facility] Cert Anticipated Discharge Date: 07/11/19 Discharge Date: 07/11/2019 Expected LOS: 2 Initial Reviewer: [email or web address] Initial Review Date: 07/09/2019 Generated: 07/13/19 9:47 am Comments DCP- Discharge Planning Updated by [email or web address]: Chantelle Rdz on 07/13/19 7:[address] TELEPHONE CALL TO THE [facility] REGARDING THE TYPE OF BED TO WHICH THE PATIENT WAS ADMITTED. CM WAS REFERRED TO ELENA AT THE [facility] AT [phone]. ELENA ADVISED THE PATIENT WILL BE ADMITTED TO A MEDICARE A BED. DCP- Discharge Planning Updated by [email or web address]: Chantelle Rdz on 07/11/19 1:[address] LATE ENTRY 1210 PATIENT FOR DISCHARGE BACK TO THE [facility] AFTER HEMODIALYSIS. HE IS PRESENTLY IN HD. [address] THE [facility]. CM SPOKE WITH LIA. HE IS AWAITING PRIMARY NURSE REPORT. HE ALSO WANTED TO KNOW IF THE PATIENT COULD TRAVEL BY WHEELCHAIR. THE [facility] CAN PROVIDE TRANSPORTATION IF PATIENT CAN TOLERATE A WHEEL CHAIR. [facility] TO CALL REPORT. 1445 THE PATIENT REMAINS IN HD. [facility] HAS CALLED REPORT. PLANNING FOR TRANSPORTATION BY THE [facility]. DCP- Discharge Planning Updated by [email or web address]: Effie Valdez on 07/09/19 7:[address] Patient Name: BRYANT ESPANA Admission Status: ER Accout number: [id number] Admission Date: 07-09-2019 : 1940 Admission Diagnosis: Attending: CLARA PORTER Current LOS: 1 Anticipated DC Date: Planned Disposition: Nursing Facility [facility] Cert Primary Insurance: MEDICARE A & B Discharge Planning Comments: CM met with patient at bedside after explaining CM role and obtaining verbal consent. Patient lives at home [facility] and he plans to return there upon discharge. Patient has dialysis TT @ [facility] [phone] CM will continue to follow and assist as needed with discharge planning / needs. Movie Actor: Effie CAMPBELL - Discharge Planning Initial Assessment Updated by [email or web address]: Effie Valdez on 07/09/19 7:57 pm * Is the patient Alert and Oriented? No * PCP GERMAN * Pharmacy [facility] * Preadmission Environment Residential Facility * Facility Name [facility] * ADLs Partial Dependent * List name and contact numbers for known caregivers / representatives who currently or will assist patient after discharge: CATRACHITO ESPANA - DAUGHTER- [phone] * Community resources currently utilized None * Please name any agencies selected above. HEMODIALYSIS T[facility]S @ [facility] * Additional services required to return to the preadmission environment? No * Can the patient safely return to the preadmission environment? Yes * Has this patient been hospitalized within the prior 30 days at any hospital? Yes Last DP export: 07/11/19 1:49 p Patient Name: BRYANT ESPANA Page 35786 at 0847 All edits/amendments must be made on the electronic document DICTATION DATE: 07/13/19846 RN OR LVN: ZOE 07/13/19846 RPT#: [id number] DC DATE:07/11/19 STATUS: DIS IN [facility] [address] [place] [address] END OF REPORT
== END 2019-07-11 16:26 | DRG 91 ==
LOC: D.ER 22:11 → D.ICU 07-09 01:15 → D.M2 07-10 15:12
PROVIDERS: Emergency Medicine; ADMIT Legal Medicine; ATTEND Legal Medicine
DX: G92 Toxic encephalopathy (principal); N18.6 End stage renal disease; I13.2 Hypertensive heart and chronic kidney disease with heart failure and with stage 5 chronic kidney disease, or end stage renal disease; I50.22 Chronic systolic (congestive) heart failure; N17.9 Acute kidney failure, unspecified; N18.9 Chronic kidney disease, unspecified; E11.9 Type 2 diabetes mellitus without complications; E11.22 Type 2 diabetes mellitus with diabetic chronic kidney disease; I50.9 Heart failure, unspecified; D63.1 Anemia in chronic kidney disease; F03.90 Unspecified dementia, unspecified severity, without behavioral disturbance, psychotic disturbance, mood disturbance, and anxiety

== ENCOUNTER 2019-07-21 13:04 | Emergency (ER) | payer MEDICARE ==
[~2019-07-21] VITALS: Ht 182.9 cm; Wt 95.5 kg
[2019-07-21 13:10] VITALS: Ht 182.9 cm; Wt 95.5 kg
[2019-07-21 15:39] LABS: HEMATOCRIT 32.1 % (42.0-54.0); HEMOGLOBIN 10.3 g/dL (13.5-17.5); MCH 34.3 pg (26.0-34.0); MCHC 32.1 g/dL (31.0-37.0); MEAN PLATELET VOLUME 9.9 fL (7.4-10.4); PLATELET COUNT 174 10x3/uL (130-400); RDW 15.2 % (11.5-14.5); WBC 9.5 10x3/uL (4.8-10.8)
[2019-07-21 16:07] LABS: ALBUMIN 2.9 g/dL (3.4-5.0); ANION GAP 17.3 mmol/L (8-16); BILIRUBIN - TOTAL 0.34 mg/dL (0.2-1.3); CALCIUM 7.9 mg/dL (8.5-10.1); CARBON DIOXIDE 27.5 mmol/L (21.0-32.0); CREATININE - SERUM 6.8 mg/dL (0.6-1.3); EOSINOPHILS 2 % (0-7); LYMPHOCYTES 39 % (15-50); MONOCYTES 12 % (2-11); NEUTROPHILS 45 % (40-80); PLATELET ESTIMATE NORMAL; POTASSIUM - SERUM 5.8 mmol/L (3.5-5.1); PROTEIN - SERUM 6.4 g/dL (6.4-8.2)
[2019-07-21 19:48] VITALS: BP 126/46
== END 2019-07-21 19:50 ==
LOC: D.ER 13:04
PROVIDERS: Family Medicine
DX: S01.21XA Laceration without foreign body of nose, initial encounter (principal); W05.0XXA Fall from non-moving wheelchair, initial encounter; E11.9 Type 2 diabetes mellitus without complications; I11.0 Hypertensive heart disease with heart failure; I50.9 Heart failure, unspecified; E78.5 Hyperlipidemia, unspecified; E87.5 Hyperkalemia

== ENCOUNTER 2019-07-27 04:59 | Outpatient (CLI) | payer MEDICARE ==
[~2019-07-27] VITALS: Ht 182.9 cm; Wt 95.5 kg
[2019-07-27 05:07] VITALS: Ht 182.9 cm; Wt 95.5 kg
[2019-07-27 05:45] LABS: BASOPHILS 0.1 % (0-2); EOSINOPHILS 4.6 % (0-7); HEMATOCRIT 31.8 % (42.0-54.0); HEMOGLOBIN 10.1 g/dL (13.5-17.5); IMMATURE GRANULOCYTES 1.1 % (0-5); LYMPHOCYTES 18.3 % (15-50); MCH 34.4 pg (26.0-34.0); MCHC 31.8 g/dL (31.0-37.0); MCV 108.2 fL (80.0-100.0); MEAN PLATELET VOLUME 9.7 fL (7.4-10.4); MONOCYTES 11.8 % (2-11); NEUTROPHILS 64.1 % (40-80); PLATELET COUNT 199 10x3/uL (130-400); RBC 2.94 10x6/uL (4.20-6.10); RDW 15.4 % (11.5-14.5); WBC 8.1 10x3/uL (4.8-10.8)
[2019-07-27 06:00] LABS: UDS - AMPHET NEGATIVE QUAL (NEGATIVE); UDS - BARB NEGATIVE QUAL (NEGATIVE); UDS - BENZO NEGATIVE QUAL (NEGATIVE); UDS - COCAINE NEGATIVE QUAL (NEGATIVE); UDS - OPIATE POSITIVE QUAL (NEGATIVE); UDS - PCP NEGATIVE QUAL (NEGATIVE); UDS - THC NEGATIVE QUAL (NEGATIVE)
[2019-07-27 06:05] LABS: APTT 33.9 SECONDS (22.8-39.4); INR 1.13 (0.85-1.17); PROTIME 13.9 SECONDS (11.6-15.0)
[2019-07-27 06:11] LABS: AMORPHOUS SEDIMENT <1+ /lpf (NONE SEEN); APPEARANCE HAZY (CLEAR); BACTERIA NONE SEEN /hpf (NEGATIVE); BILIRUBIN NEGATIVE (NEGATIVE); COLOR YELLOW (YELLOW); EPITHELIAL CELLS RARE /hpf (0-5); GLUCOSE NEGATIVE (NEGATIVE); KETONE NEGATIVE (NEGATIVE); NITRITE NEGATIVE (NEGATIVE); PROTEIN 1+ mg/dL (NEGATIVE); RED CELLS - URINE 0-5 /hpf (0-5); UROBILINOGEN NORMAL (NORMAL); WHITE CELLS - URINE 0-5 /hpf (NEGATIVE)
[2019-07-27 06:12] LABS: ALBUMIN 2.8 g/dL (3.4-5.0); ALKALINE PHOSPHATASE 100 U/L (46-116); ALT (SGPT) 19 U/L (10-68); CALC OSMOLALITY 297 mosm/kg (275-300); CALCIUM 8.3 mg/dL (8.5-10.1); CARBON DIOXIDE 24.3 mmol/L (21.0-32.0); CHLORIDE - SERUM 103 mmol/L (98-107); CREATININE - SERUM 8.8 mg/dL (0.6-1.3); GLUCOSE 79 mg/dL (74-106); POTASSIUM - SERUM 5.9 mmol/L (3.5-5.1); PROTEIN - SERUM 6.1 g/dL (6.4-8.2); SODIUM 142 mmol/L (136-145); UREA NITROGEN 58 mg/dL (7-18); eGFR NON AFRICAN AMERICAN 6 mL/min (90-120)
[2019-07-27 06:15] LABS: CKMB 0.9 U/L (0.0-3.6); CREATINE KINASE 284 UL (21-232); MAGNESIUM - SERUM 2.5 mg/dL (1.8-2.4); THYROID STIMULATING HORMONE 2.39 uIU/mL (0.36-3.74); TROPONIN-I 0.022 ng/mL (0.000-0.060)
[2019-07-27 06:24] VITALS: BP 138/59
--- NOTE | 2019-07-27 07:05 | NUR ---
ASSUMED CARE OF PT. ALERT TO NAME ONLY. VSS. NAD NOTED.
[2019-07-27 07:20] VITALS: BP 137/55
--- NOTE | 2019-07-27 08:00 | NUR ---
PT ARRIVED TO FLOOR VIA STRETCHER FROM ER. VSS AND WNL. PT CONFUSED TO PLACE AND TIME BUT KNOWS HIS NAME. BEDRAILS UP X2 AND BED ALARM TURNED ON. WILL CONT TO FOLLOW POC
[2019-07-27 09:13] VITALS: BP 150/64
[2019-07-27 12:17] VITALS: BP 150/82
--- NOTE | 2019-07-27 12:20 | NUR ---
PT RESTING IN BED, PT REFUSING TO EAT LUNCH. DENIES ANY FURTHER NEEDS AT THIS TIME, CALL LIGHT WITHIN REACH. BED ALARM ON AND TESTED. WILL CONT TO FOLLOW POC
--- NOTE | 2019-07-27 13:33 | MORECARE ---
CASE MANAGEMENT DISCHARGE SUMMARY PATIENT: BRYANT ESPANA UNIT: [id number] ADM DATE: 07/27/19 AGE: 79 : 39 SEX: M ROOM/BED: D.2136 AUTHOR: JAYDEN HINOJOSA PHYSICIAN: REFERRING PHYSICIAN: YVONNE GÓMEZ MD DATE OF SERVICE: 07/27/19 Discharge Plan Patient Name: BRYANT ESPANA [facility] [facility] 1940 Planned Disposition: Nursing Facility [facility] Cert Anticipated Discharge Date: 07/27/19 Discharge Date: Expected LOS: 1 Initial Reviewer: [email or web address] Initial Review Date: 07/27/2019 Generated: 07/27/19 2:32 pm External Providers External Provider: [facility] Next Contact Date: 07/27/2019 Service Request Date: Service Type: Resolution: Reviewer: Comments: Patient Name: BRYANT ESPANA Page 22389 at 1333 All edits/amendments must be made on the electronic document DICTATION DATE: 07/27/19 133 ENGLISH DIVISION CHAIR: ZOE 07/27/19 133 RPT#: [id number] DC DATE: STATUS: ADM IN [facility] [address] [place] [address] END OF REPORT
--- NOTE | 2019-07-27 13:41 | MORECARE ---
CASE MANAGEMENT DISCHARGE SUMMARY PATIENT: BRYANT ESPANA UNIT: [id number] ADM DATE: 07/27/19 AGE: 79 : 39 SEX: M ROOM/BED: D.2136 AUTHOR: JAYDEN HINOJOSA PHYSICIAN: REFERRING PHYSICIAN: YVONNE GÓMEZ MD DATE OF SERVICE: 07/27/19 Discharge Plan Patient Name: BRYANT ESPANA Facility: [facility]:[place] : 1940 Planned Disposition: Nursing Facility [facility] Cert Anticipated Discharge Date: 07/27/19 Discharge Date: Expected LOS: 1 Initial Reviewer: [email or web address] Initial Review Date: 07/27/2019 Generated: 07/27/19 2:41 pm DCPIA - Discharge Planning Initial Assessment Updated by [email or web address]: Romeo Mohan on 07/27/19 1:36 pm * Is the patient Alert and Oriented? Yes * How many steps to enter\exit or inside your home? NONE * PCP DR. PORTER * Pharmacy [facility] * Preadmission Environment [facility] * Facility Name [facility] * ADLs Partial Dependent * Partial ADLs (Assistance needed) Ambulation Bathing Medication Management Transfers * Equipment Wheelchair * Other Equipment [facility] * List name and contact numbers for known caregivers / representatives who currently or will assist patient after discharge: CATRACHITO ESPANA, DTR, * Verbal permission to speak to the caregivers and representatives has been obtained from the patient. N/A * Community resources currently utilized Other * Please name any agencies selected above. [facility]IS, [facility], [facility] * Additional services required to return to the preadmission environment? No * Can the patient safely return to the preadmission environment? Yes * Has this patient been hospitalized within the prior 30 days at any hospital? Yes Last DP export: 07/27/19 12:33 Patient Name: BRYANT ESPANA Page 72162 at 1341 All edits/amendments must be made on the electronic document DICTATION DATE: 07/27/19 1341 PANEL INSTALLER: ZOE 07/27/19 1341 RPT#: [id number] DC DATE: STATUS: ADM IN [facility] [address] [place] [address] END OF REPORT
--- NOTE | 2019-07-27 13:51 | MORECARE ---
CASE MANAGEMENT DISCHARGE SUMMARY PATIENT: BRYANT ESPANA UNIT: [id number] ADM DATE: 07/27/19 AGE: 79 : 39 SEX: M ROOM/BED: D.2136 AUTHOR: ASHISH,DOC PHYSICIAN: REFERRING PHYSICIAN: YVONNE GÓMEZ MD DATE OF SERVICE: 07/27/19 Discharge Plan Patient Name: BRYANT ESPANA Facility: [facility]:[place] : 1940 Planned Disposition: Nursing Facility [facility] Cert Anticipated Discharge Date: 07/27/19 Discharge Date: Expected LOS: 1 Initial Reviewer: [email or web address] Initial Review Date: 07/27/2019 Generated: 07/27/19 2:50 pm Comments DCP- Discharge Planning Updated by [email or web address]: Romeo Preston on 07/27/19 12:[address] Patient Name: BRYANT ESPANA Admission Status: Elective Accout number: [id number] Admission Date: 07-27-2019 : 1940 Admission Diagnosis: Attending: YVONNE GÓMEZ Current LOS: 1 Anticipated DC Date: 07-27-2019 Planned Disposition: Nursing Facility [facility] Cert Primary Insurance: MEDICARE A & B PLANNED EXTERNAL PROVIDER: [facility], LONG TERM CARE MEDICAID BED Discharge Planning Comments: CM RECEIVED DISCHARGE ORDER, SPOKE TO PT IN ROOM. PT LIVES AT THE [facility], HE WILL RETURN THERE TODAY PT STATES THE DOCTOR WAS HERE AND TALKED TO HE AND HIS DAUGHTER SO. PT WANTS SOMETHING FOR CONSTIPATION AND IS NOT EATING HIS LUNCH AND DOES NOT LIKE THE FOOD HERE. CM INFORMED PT THAT CM WILL NOTIFY THE BEDSIDE NURSE. PT SIGNED CONSENT FOR THE [facility]. CM NOTIFIED [facility] AT [phone], FAXED UPDATE AND DISCHARGE INFORMATION TO [facility] FOR THE [facility] AT [phone]. FOR DISCHARGE, NURSE REPORT TO BE CALLED TO THE [facility] AT [phone]. THE [facility] TO ARRANGE TRANSPORTATION. Land Conservation Specialist: Romeo Preston DCPIA - Discharge Planning Initial Assessment Updated by [email or web address]: Romeo Preston on 07/27/19 1:36 pm * Is the patient Alert and Oriented? Yes * How many steps to enter\exit or inside your home? NONE * PCP DR. PORTER * Pharmacy [facility] * Preadmission Environment Skiagrapher [facility]dc * Facility [facility] * ADLs Partial Dependent * Partial ADLs (Assistance needed) Ambulation Bathing Medication Management Transfers * Equipment Wheelchair * Other Equipment [facility] * List name and contact numbers for known caregivers / representatives who currently or will assist patient after discharge: CATRACHITO ESPANA, DTR, * Verbal permission to speak to the caregivers and representatives has been obtained from the patient. N/A * Community resources currently utilized Other * Please name any agencies selected above. [facility], [facility], [facility] * Additional services required to return to the preadmission environment? No * Can the patient safely return to the preadmission environment? Yes * Has this patient been hospitalized within the prior 30 days at any hospital? Yes Coverage Notice Reviewer: [email or web address] Regina Preston Notice Issued Date-Time: 07/27/2019 12:55 Notice Type: Patient Choice Letter Notice Delivered To: Patient Relationship to Patient: Loom Repairer Name: Delivery Method: HAND - Hand Delivered Mona Days: Prior Verbal Notification: Recipient Understood Notice: Yes Recipient Signature: Yes Med Rec Note Co-signed by Attending: Coverage Notice Comment: [facility] Last DP export: 07/27/19 12:42 Patient Name: BRYANT ESPANA Page [id number] at 1351 All edits/amendments must be made on the electronic document DICTATION DATE: 07/27/19 1350 QUALITY CONTROL COORDINATOR: ZOE 07/27/19 1350 RPT#: [id number] DC DATE: STATUS: ADM IN [facility] [address] [place] [address] END OF REPORT
--- NOTE | 2019-07-27 16:14 | NUR ---
NO FLU SHOT SEEN UPON ADMIT, WHEN PATIENT IS QUESTIONED IF HE WANTS ONE UPON DISCHARGE, HE REFUSED.
--- NOTE | 2019-07-27 16:48 | NUR ---
PT STILL HAS NOT BEEN DIALIZED AND [facility] WILL NOT HAVE TRANSPORTATION FOR PT MUCH LONGER TODAY. PAGED [facility] TO SEE IF PT CAN D/C BACK TO [facility] WITHOUT DIALYSIS AT THIS POINT AND RESUME NORMAL DIALYSIS SCHEDULE OF ,,S. OK PER [facility] REPAIRER WOOD FURNITURE
[2019-07-27 17:24] VITALS: BP 155/68
--- NOTE | 2019-07-27 17:25 | NUR ---
ATTEMPTED TO DISCUSS DISCHARGE INSTRUCTIONS. BUT PT NOT ABLE TO UNDERSTAND. REPORT CALLED TO [facility] AND SPOKE WITH VERONICA. PIV TO LEFT HAND REMOVED WITH CATHETER TIP INTACT. PT LEFT WITH [facility] TRANSPORT
== END 2019-07-27 17:50 | disposition home or self-care (01) ==
LOC: OBSVTIME → D.ER 04:59 → D.OPS 04:59 → D.M2 07:03 → D.ER 07:03 → OBSVTIME 07:27 → D.ER 07:45 → EDSTATUS 11:00 → D.OPS 17:50 → D.M2 17:50
PROVIDERS: Family Medicine; ATTEND Internal Medicine
DX: E11.22 Type 2 diabetes mellitus with diabetic chronic kidney disease (principal); I12.0 Hypertensive chronic kidney disease with stage 5 chronic kidney disease or end stage renal disease; N18.6 End stage renal disease; Z99.2 Dependence on renal dialysis; F03.90 Unspecified dementia, unspecified severity, without behavioral disturbance, psychotic disturbance, mood disturbance, and anxiety; G47.33 Obstructive sleep apnea (adult) (pediatric); D63.1 Anemia in chronic kidney disease; E87.5 Hyperkalemia; R53.81 Other malaise

== ENCOUNTER 2019-07-28 11:36 | Inpatient (IN) | payer MEDICARE ==
[~2019-07-28] VITALS: Ht 182.9 cm; Wt 88.9 kg
[2019-07-28 12:31] LABS: BASOPHILS 0.2 % (0-2); EOSINOPHILS 0.3 % (0-7); HEMATOCRIT 34.9 % (42.0-54.0); HEMOGLOBIN 11.3 g/dL (13.5-17.5); MCHC 32.4 g/dL (31.0-37.0); MEAN PLATELET VOLUME 9.7 fL (7.4-10.4); MONOCYTES 14.2 % (2-11); NEUTROPHILS 74.3 % (40-80); PLATELET COUNT 183 10x3/uL (130-400); RBC 3.23 10x6/uL (4.20-6.10); RDW 15.5 % (11.5-14.5); WBC 8.6 10x3/uL (4.8-10.8)
[2019-07-28 12:37] LABS: APPEARANCE CLEAR (CLEAR); BACTERIA FEW /hpf (NEGATIVE); BILIRUBIN NEGATIVE (NEGATIVE); COLOR YELLOW (YELLOW); EPITHELIAL CELLS 0-5 /hpf (0-5); GLUCOSE 250 mg/dL (NEGATIVE); KETONE NEGATIVE (NEGATIVE); NITRITE NEGATIVE (NEGATIVE); PROTEIN 1+ mg/dL (NEGATIVE); RED CELLS - URINE 0-5 /hpf (0-5); UROBILINOGEN NORMAL (NORMAL); WHITE CELLS - URINE 0-5 /hpf (NEGATIVE)
--- NOTE | 2019-07-28 12:38 | NUR ---
EXT 0055 REPORT TO TAMIKA ROJAS. PATIENT TO BE ADMITTED TO ROOM 2236
[2019-07-28 12:41] LABS: APTT 30.8 SECONDS (22.8-39.4); INR 1.11 (0.85-1.17); PROTIME 13.8 SECONDS (11.6-15.0)
[2019-07-28 12:44] LABS: UDS - AMPHET NEGATIVE QUAL (NEGATIVE); UDS - BARB NEGATIVE QUAL (NEGATIVE); UDS - BENZO NEGATIVE QUAL (NEGATIVE); UDS - COCAINE NEGATIVE QUAL (NEGATIVE); UDS - OPIATE POSITIVE QUAL (NEGATIVE); UDS - PCP NEGATIVE QUAL (NEGATIVE); UDS - THC NEGATIVE QUAL (NEGATIVE)
[2019-07-28 12:49] LABS: ALBUMIN 2.9 g/dL (3.4-5.0); ALKALINE PHOSPHATASE 104 U/L (46-116); ALT (SGPT) 19 U/L (10-68); BILIRUBIN - TOTAL 0.68 mg/dL (0.2-1.3); CALCIUM 8.3 mg/dL (8.5-10.1); CHLORIDE - SERUM 96 mmol/L (98-107); PROTEIN - SERUM 7.4 g/dL (6.4-8.2); SODIUM 137 mmol/L (136-145)
[2019-07-28 12:50] LABS: CALC OSMOLALITY 282 mosm/kg (275-300); CREATININE - SERUM 5.4 mg/dL (0.6-1.3); GLUCOSE 159 mg/dL (74-106); POTASSIUM - SERUM 4.2 mmol/L (3.5-5.1); UREA NITROGEN 29 mg/dL (7-18); eGFR NON AFRICAN AMERICAN 11 mL/min (90-120)
[2019-07-28 13:00] VITALS: BP 150/76
[2019-07-28 13:01] LABS: CKMB 1.2 U/L (0.0-3.6); CREATINE KINASE 109 UL (21-232); THYROID STIMULATING HORMONE 1.86 uIU/mL (0.36-3.74)
[2019-07-28 13:04] LABS: TROPONIN-I < 0.017 ng/mL (0.000-0.060)
--- NOTE | 2019-07-28 16:02 | NUR ---
REPORT TO TAMIKA NAVARRO. PT TO BE ADMITTED TO ROOM 2111.
[2019-07-28 16:03] VITALS: BP 140/83
--- NOTE | 2019-07-28 17:09 | NUR ---
RECEIVED PT TO ROOM 2111 VIA STRETCHER. PT A/OX2, PT UNABLE TO PROVIDED ANY HISTORY OR TELL THIS NURSE WHAT MEDICATIONS HE TAKES AT HOME. NO FAMILY HERE. ORIENTED PT TO ROOM AND CALL LIGHT. WILL ASSESS PT AND START PLAN OF CARE.
[2019-07-28 17:23] VITALS: BP 146/71; BMI 26.6
[2019-07-28 18:06] VITALS: BP 139/53
[2019-07-28 20:00] VITALS: BP 117/44
--- NOTE | 2019-07-28 22:15 | NUR ---
AROUSES TO VERBAL STIMULI. ALERT.ORIENTED X 2. RESP EVEN AND UANLBORED. NO DISTRESS NOTED. SL TO LEFT HAND WITHOUT REDNESS OR EDEMA NOTED. CL IN REACH
[2019-07-29] VITALS: BP 120/49
[2019-07-29 04:00] VITALS: BP 142/55
[2019-07-29 06:11] LABS: BASOPHILS 0.2 % (0-2); EOSINOPHILS 3.6 % (0-7); HEMATOCRIT 34.3 % (42.0-54.0); HEMOGLOBIN 10.9 g/dL (13.5-17.5); LYMPHOCYTES 15.6 % (15-50); MCH 34.5 pg (26.0-34.0); MCHC 31.8 g/dL (31.0-37.0); MCV 108.5 fL (80.0-100.0); MONOCYTES 18.1 % (2-11); NEUTROPHILS 61.5 % (40-80); PLATELET COUNT 179 10x3/uL (130-400); RBC 3.16 10x6/uL (4.20-6.10); RDW 15.8 % (11.5-14.5); WBC 5.9 10x3/uL (4.8-10.8)
[2019-07-29 06:47] LABS: ALBUMIN 2.6 g/dL (3.4-5.0); ANION GAP 16.3 mmol/L (8-16); BILIRUBIN - TOTAL 0.44 mg/dL (0.2-1.3); CALCIUM 8.3 mg/dL (8.5-10.1); CARBON DIOXIDE 27.9 mmol/L (21.0-32.0); CREATININE - SERUM 6.6 mg/dL (0.6-1.3); MAGNESIUM - SERUM 2.3 mg/dL (1.8-2.4); PHOSPHOROUS 7.2 mg/dL (2.5-4.9); POTASSIUM - SERUM 4.2 mmol/L (3.5-5.1); PROTEIN - SERUM 6.6 g/dL (6.4-8.2)
[2019-07-29 09:25] VITALS: BP 161/60
--- NOTE | 2019-07-29 11:19 | NUR ---
BLOOD SUGAR OF 147, NO COVERAGE NEEDED PER S/S. PT RESTING COMFORTABLY IN BED. PLACED SCDS ON BILAT LEGS. PT DENIES ANY NEEDS AT THIS TIME. CALL LIGHT IN REACH,NAD NOTED, WILL CONTINUE TO MONITOR.
[2019-07-29 13:09] VITALS: Ht 182.9 cm; Wt 88.9 kg
[2019-07-29 14:02] VITALS: BP 109/67
--- NOTE | 2019-07-29 15:01 | NUR ---
CALLED THE [facility] AT [phone] SPOKE WITH ANTHONY ASKED HIM IF HE COULD FAX AN UPDATED MED LIST FOR PT. TO FAX [phone]
--- NOTE | 2019-07-29 16:49 | NUR ---
BLOOD SUGAR OF 118, NO COVERAGE NEEDED PER S/S. PT RESTING COMFORTABLY IN BED, DENIES ANY NEEDS AT THIS TIME. CALL LIGHT IN REACH, NAD NOTED.
[2019-07-29] MEDS ORDERED: NEURONTIN 300300 MG PO (17:03)
[2019-07-29] MEDS ORDERED: RENVELA2.4 GM PO (17:08)
[2019-07-29] MEDS ORDERED: ACETAMINOPHEN325 MG PO (17:12)
[2019-07-29 17:43] VITALS: BP 150/57
[2019-07-29 20:00] VITALS: BP 140/53
--- NOTE | 2019-07-29 21:37 | NUR ---
AWAKE,ALERT.ORIENTED X 3. RESP EVEN AND UNALBORED. NO DISTRESS NOTED. SL TO LEFT HAND INTACT WITHOUT REDNESS OR EDEMA NOTED. CL IN REACH. FALL PRECAUTIONS IN PLACE.
[2019-07-30] VITALS: BP 177/55
[2019-07-30 04:00] VITALS: BP 160/68
--- NOTE | 2019-07-30 07:52 | NUR ---
REPORT RECIEVED. PT RESTING QUIETLY IN BED. RISE AND FALL OF CHEST NOTICED. RR EVEN AND UNLABORED. PT HAS A L HAND PIV THAT IS SL. BED LOCKED AND IN LOWEST POSITION, CALL LIGHT WITHIN REACH. WILL CTM
[2019-07-30 08:30] VITALS: BP 151/54
[2019-07-30 12:30] VITALS: BP 107/57
[2019-07-30] MEDS ORDERED: LEVOFLOXACIN500 MG PO (13:19)
--- NOTE | 2019-07-30 15:13 | NUR ---
REPORT CALLED TO THE [facility] TO TABITHA CHAU AT THIS TIME
--- NOTE | 2019-07-30 15:19 | MORECARE ---
CASE MANAGEMENT DISCHARGE SUMMARY PATIENT: BRYANT ESPANA UNIT: [id number] ADM DATE: 07/28/19 AGE: 79 : 39 SEX: M ROOM/BED: D.2111 AUTHOR: JAYDEN HINOJOSA PHYSICIAN: REFERRING PHYSICIAN: AMARJIT MAYFIELD DO DATE OF SERVICE: 07/30/19 Discharge Plan Patient Name: BRYANT ESPANA Facility: [facility]:[place] : 1940 Planned Disposition: Nursing Facility [facility] Cert Anticipated Discharge Date: 07/30/19 Discharge Date: Expected LOS: 2 Initial Reviewer: [email or web address] Initial Review Date: 07/30/2019 Generated: 07/30/19 4:18 pm DCPIA - Discharge Planning Initial Assessment Updated by [email or web address]: Romeo Preston on 07/30/19 3:16 pm * Is the patient Alert and Oriented? Yes * How many steps to enter\exit or inside your home? NONE * PCP DR. PORTER * Pharmacy [facility] * Preadmission Environment Installation Drafter Detention * Facility Name [facility] * ADLs Partial Dependent * Partial ADLs (Assistance needed) Ambulation Bathing Dressing Medication Management Toileting Transfers * Equipment Wheelchair * Other Equipment ALL MEDICAL EQUIPMENT PROVIDED BY FACILITY * List name and contact numbers for known caregivers / representatives who currently or will assist patient after discharge: CATRACHITO MALLORYDWELL, R, NICKI ESPANA, R, * Verbal permission to speak to the caregivers and representatives has been obtained from the patient. Yes * Community resources currently utilized Other * Please name any agencies selected above. [facility]IENT DIALYS[facility], [facility], [facility] * Additional services required to return to the preadmission environment? No * Can the patient safely return to the preadmission environment? Yes * Has this patient been hospitalized within the prior 30 days at any hospital? Yes External Providers [facility] Next Contact Date: 07/30/2019 Service Request Date: Service Type: Resolution: Reviewer: Comments: Patient Name: BRYANT ESPANA Page 59489 at 1519 All edits/amendments must be made on the electronic document DICTATION DATE: 07/30/191517 TECHNICAL CABLE JOINTER: ZOE 07/30/191517 RPT#: [id number] GA DATE: STATUS: ADM IN [facility] [address] [place] [address] END OF REPORT
--- NOTE | 2019-07-30 15:29 | MORECARE ---
CASE MANAGEMENT DISCHARGE SUMMARY PATIENT: BRYANT ESPANA UNIT: [id number] ADM DATE: 07/28/19 AGE: 79 : 39 SEX: M ROOM/BED: D.2111 AUTHOR: ASHISH,DOC PHYSICIAN: REFERRING PHYSICIAN: AMARJIT MAYFIELD DO DATE OF SERVICE: 07/30/19 Discharge Plan Patient Name: BRYANT ESPANA Facility: [facility]:[place] : 1940 Planned Disposition: Nursing Facility [facility] Cert Anticipated Discharge Date: 07/30/19 Discharge Date: Expected LOS: 2 Initial Reviewer: [email or web address] Initial Review Date: 07/30/2019 Generated: 07/30/19 4:29 pm Comments DCP- Discharge Planning Updated by [id number]: Romeo Preston on 07/30/19 2:[address] Patient Name: BRYANT ESPANA Admission Status: ER Accout number: [id number] Admission Date: 07-28-2019 : 1940 Admission Diagnosis: Attending: DESIREE Current LOS: 2 Anticipated DC Date: 07-30-2019 Planned Disposition: Nursing Facility [facility] Cert Primary Insurance: MEDICARE A & B PLANNED EXTERNAL PROVIDER: [facility], LONG TERM CARE MEDICAID BED Discharge Planning Comments: CM RECEIVED DISCHARGE ORDER, SPOKE TO PT IN ROOM. PT LIVES AT THE [facility], HE WILL RETURN THERE TODAY. PT REPORTS ABILITY TO SIT IN WHEELCHAIR FOR TRANSPORT. CHOICE SIGNED FOR THE [facility]. IMPORTANT MESSAGE FROM MEDICARE PROVIDED AND EXPLAINED. CM CALLED PT'S URIER NICKI ESPANA, , WHO WILL SEE PT AT THE HALF-WAY LATER THIS EVENING WHEN SHE GETS OFF WORK. CM NOTIFIED [facility] AT [phone], FAXED UPDATE AND DISCHARGE INFORMATION TO [facility] FOR THE [facility] AT [phone]. FOR DISCHARGE, NURSE REPORT TO BE CALLED TO THE [facility] AT [phone]. THE [facility] TO ARRANGE TRANSPORTATION FOR ABOUT 3:30PM TO 4:00PM SENIOR UI SOFTWARE ENGINEER. BEDSIDE AND CIRCUS ROUSTABOUT NURSE NOTIFIED. Curtain Feller Blindstitch: Romeo Preston DCPIA - Discharge Planning Initial Assessment Updated by [email or web address]: Romeo Preston on 07/30/19 3:16 pm * Is the patient Alert and Oriented? Yes * How many steps to enter\exit or inside your home? NONE * PCP DR. PORTER * Pharmacy [facility] * Preadmission Environment Rental Car Ferry Driver Fci * Facility Name [facility] * ADLs Partial Dependent * Partial ADLs (Assistance needed) Ambulation Bathing Dressing Medication Management Toileting Transfers * Equipment Wheelchair * Other Equipment ALL MEDICAL EQUIPMENT PROVIDED BY FACILITY * List name and contact numbers for known caregivers / representatives who currently or will assist patient after discharge: CATRACHITO ESPANA, DTR, NICKI ESPANA, DTR, * Verbal permission to speak to the caregivers and representatives has been obtained from the patient. Yes * Community resources currently utilized Other * Please name any agencies selected above. OUTPATIENT DIALYSIS, [facility], [facility] * Additional services required to return to the preadmission environment? No * Can the patient safely return to the preadmission environment? Yes * Has this patient been hospitalized within the prior 30 days at any hospital? Yes Coverage Notice Reviewer: ALEJANDRINA Preston Notice Issued Date-Time: 07/30/2019 14:50 Notice Type: IM Discharge Notice Notice Delivered To: Patient Relationship to Patient: Bar Roller Name: Delivery Method: HAND - Hand Delivered Mona Days: Prior Verbal Notification: Recipient Understood Notice: Yes Recipient Signature: Yes Med Rec Note Co-signed by Attending: Coverage Notice Comment: Reviewer: ALEJANDRINA Preston Notice Issued Date-Time: 07/30/2019 14:40 Notice Type: Patient Choice Letter Notice Delivered To: Patient Relationship to Patient: Bar Roller Name: Delivery Method: HAND - Hand Delivered Mona Days: Prior Verbal Notification: Recipient Understood Notice: Yes Recipient Signature: Yes Med Rec Note Co-signed by Attending: Coverage Notice Comment: [facility] Last DP export: 07/30/19 2:19 Patient Name: BRYANT ESPANA Page [id number] at 1529 All edits/amendments must be made on the electronic document DICTATION DATE: 07/30/191528 REAL PROPERTY APPRAISER: ZOE 07/30/191528 RPT#: [id number] DC DATE: STATUS: ADM IN [facility] [address] [place] [address] END OF REPORT
--- NOTE | 2019-07-30 16:36 | NUR ---
DC PAPERWORK GONE OVER AND SIGNED WITH PT. ALL QUESTIONS ANSWERED. TELEMETRY REMOVED AND RETURNED TO GRIEVANCE AND APPEALS COORDINATOR. PIV REMOVED, CATH TIP FULLY INTACT. ALL VALUBLES REMOVED AND TAKIN WITH PT. GINI ARIZMENDI ARRIVED AT THIS TIME TO PICK PT UP AND RETURN HIM TO THE [facility].
== END 2019-07-30 16:39 | DRG 193 ==
LOC: D.ER 11:36 → D.M2 13:26
PROVIDERS: Family Medicine; ADMIT Internal Medicine; ATTEND Internal Medicine
PROC: 5A1D70Z Performance of Urinary Filtration, Intermittent, Less than 6 Hours Per Day (ICD-10-PCS; principal; 2019-07-30)
DX: J18.1 Lobar pneumonia, unspecified organism (principal); L89.154 Pressure ulcer of sacral region, stage 4; N18.6 End stage renal disease; I12.0 Hypertensive chronic kidney disease with stage 5 chronic kidney disease or end stage renal disease; R41.82 Altered mental status, unspecified; T42.6X5A Adverse effect of other antiepileptic and sedative-hypnotic drugs, initial encounter; D63.1 Anemia in chronic kidney disease; E11.22 Type 2 diabetes mellitus with diabetic chronic kidney disease; F03.90 Unspecified dementia, unspecified severity, without behavioral disturbance, psychotic disturbance, mood disturbance, and anxiety; E11.622 Type 2 diabetes mellitus with other skin ulcer; E87.5 Hyperkalemia

== ENCOUNTER 2019-07-31 14:57 | Emergency (ER) | payer MEDICARE ==
[~2019-07-31] VITALS: Ht 182.9 cm; Wt 90.9 kg
[~2019-07-31 14:57] MED LIST changes: +LEVOFLOXACIN500 MG PO; +NEURONTIN 300300 MG PO; +RENVELA2.4 GM PO
[2019-07-31 14:59] VITALS: Ht 182.9 cm; Wt 90.9 kg
[2019-07-31 16:20] LABS: BASOPHILS 0.1 % (0-2); EOSINOPHILS 3.4 % (0-7); HEMOGLOBIN 11.3 g/dL (13.5-17.5); IMMATURE GRANULOCYTES 0.7 % (0-5); LYMPHOCYTES 13.6 % (15-50); MCH 34.8 pg (26.0-34.0); MCHC 33.2 g/dL (31.0-37.0); MCV 104.6 fL (80.0-100.0); MEAN PLATELET VOLUME 9.8 fL (7.4-10.4); MONOCYTES 15.7 % (2-11); NEUTROPHILS 66.5 % (40-80); PLATELET COUNT 199 10x3/uL (130-400); RBC 3.25 10x6/uL (4.20-6.10); RDW 14.9 % (11.5-14.5); WBC 7.3 10x3/uL (4.8-10.8)
[2019-07-31 16:27] LABS: ANION GAP 17.9 mmol/L (8-16); CARBON DIOXIDE 26.9 mmol/L (21.0-32.0); CREATININE - SERUM 11.1 mg/dL (0.6-1.3); POTASSIUM - SERUM 4.8 mmol/L (3.5-5.1)
[2019-07-31 16:33] LABS: ALBUMIN 2.6 g/dL (3.4-5.0); BILIRUBIN - TOTAL 0.42 mg/dL (0.2-1.3); PROTEIN - SERUM 6.3 g/dL (6.4-8.2)
[2019-07-31 19:15] VITALS: BP 161/68
== END 2019-07-31 18:13 ==
LOC: D.ER 14:57
PROVIDERS: Family Medicine
DX: N18.6 End stage renal disease (principal); M79.89 Other specified soft tissue disorders; E11.9 Type 2 diabetes mellitus without complications; I10 Essential (primary) hypertension

== ENCOUNTER 2019-08-01 11:54 | Emergency (ER) | payer MEDICARE ==
[~2019-08-01] VITALS: Ht 182.9 cm; Wt 95.5 kg
[2019-08-01 11:57] VITALS: Ht 182.9 cm; Wt 95.5 kg
[2019-08-01 13:39] LABS: APPEARANCE HAZY (CLEAR); BILIRUBIN NEGATIVE (NEGATIVE); COLOR YELLOW (YELLOW); GLUCOSE NEGATIVE (NEGATIVE); KETONE NEGATIVE (NEGATIVE); NITRITE NEGATIVE (NEGATIVE); PROTEIN 1+ mg/dL (NEGATIVE); UROBILINOGEN NORMAL (NORMAL)
[2019-08-01 13:40] LABS: WHITE CELLS - URINE >50 /hpf (NEGATIVE)
[2019-08-01 13:41] LABS: BACTERIA MANY /hpf (NEGATIVE)
[2019-08-01 13:46] LABS: UDS - AMPHET NEGATIVE QUAL (NEGATIVE); UDS - BARB NEGATIVE QUAL (NEGATIVE); UDS - BENZO NEGATIVE QUAL (NEGATIVE); UDS - COCAINE NEGATIVE QUAL (NEGATIVE); UDS - OPIATE POSITIVE QUAL (NEGATIVE); UDS - PCP NEGATIVE QUAL (NEGATIVE); UDS - THC NEGATIVE QUAL (NEGATIVE)
[2019-08-01 13:59] LABS: BASOPHILS 0.2 % (0-2); EOSINOPHILS 0.2 % (0-7); HEMATOCRIT 35.8 % (42.0-54.0); HEMOGLOBIN 11.7 g/dL (13.5-17.5); IMMATURE GRANULOCYTES 0.7 % (0-5); LYMPHOCYTES 4.7 % (15-50); MCH 34.6 pg (26.0-34.0); MCHC 32.7 g/dL (31.0-37.0); MCV 105.9 fL (80.0-100.0); MEAN PLATELET VOLUME 9.9 fL (7.4-10.4); MONOCYTES 16.3 % (2-11); NEUTROPHILS 77.9 % (40-80); PLATELET COUNT 179 10x3/uL (130-400); RBC 3.38 10x6/uL (4.20-6.10); RDW 14.9 % (11.5-14.5)
[2019-08-01 14:00] LABS: WBC 9.4 10x3/uL (4.8-10.8)
[2019-08-01 14:11] LABS: APTT 29.8 SECONDS (22.8-39.4); CALCIUM 8.3 mg/dL (8.5-10.1); CARBON DIOXIDE 29.1 mmol/L (21.0-32.0); CHLORIDE - SERUM 98 mmol/L (98-107); GLUCOSE 119 mg/dL (74-106); INR 1.03 (0.85-1.17); SODIUM 136 mmol/L (136-145)
[2019-08-01 14:12] LABS: CALC OSMOLALITY 280 mosm/kg (275-300); CREATININE - SERUM 6.4 mg/dL (0.6-1.3); UREA NITROGEN 36 mg/dL (7-18); eGFR NON AFRICAN AMERICAN 9 mL/min (90-120)
[2019-08-01 14:28] LABS: ALBUMIN 2.7 g/dL (3.4-5.0); ALKALINE PHOSPHATASE 98 U/L (46-116); ALT (SGPT) 13 U/L (10-68); BILIRUBIN - TOTAL 0.36 mg/dL (0.2-1.3); CKMB 2.7 U/L (0.0-3.6); CREATINE KINASE 458 UL (21-232); MAGNESIUM - SERUM 2.2 mg/dL (1.8-2.4); PROTEIN - SERUM 6.5 g/dL (6.4-8.2); THYROID STIMULATING HORMONE 1.39 uIU/mL (0.36-3.74)
[2019-08-01 14:29] LABS: TROPONIN-I 0.016 ng/mL (0.000-0.060)
[2019-08-01 22:00] VITALS: BP 99/65
== END 2019-08-01 23:21 | disposition home or self-care (01) ==
LOC: D.ER 11:54
PROVIDERS: Emergency Medicine
DX: R41.82 Altered mental status, unspecified (principal); F02.80 Dementia in other diseases classified elsewhere, unspecified severity, without behavioral disturbance, psychotic disturbance, mood disturbance, and anxiety; N39.0 Urinary tract infection, site not specified; N18.6 End stage renal disease; E11.9 Type 2 diabetes mellitus without complications

== ENCOUNTER 2019-09-04 07:25 | Outpatient (CLI) | payer MEDICARE ==
[~2019-09-04] VITALS: Ht 182.9 cm; Wt 88.6 kg
--- NOTE | ~2019-09-04 | HEMODYNAMI ---
PATIENT:BRYANT ESPANA MEDICAL RECORD: [id number] : 38 LOCATION:[facility] ADMISSION DATE: 09/04/19 Generatedon:09/04/201911:29 Patient name: BRYANT ESPANA Patient #: [id number] SSN: D OB: 1940 Date of study: 09/04/2019 Page: Of Hemodynamic Procedure Report Patient Data Patient Demographics Procedure consent was obtained First Name: BRYANT Gender: Male Last Name: MALORIE : 1940 Patient #: [id number] Age: 79 year(s) Race: Unknown Additional ID: [id number] Contact details Address: [address] [place] [address] rd State: [place] City: [facility] Zip code: [address] Past Medical History Allergies: No known allergies Admission Admission Data Admission Date: 09/04/2019 Admission Time: 7:25 Height (in.): 72 BSA: 2.11 (m2) Height (cm.): 182.88 BMI: 26.45 (kg/m2) Weight (lbs.): 195 Weight (kg.): 88.45 Procedure Procedure Types Cath Procedure Peripheral Cath Diagnostic Procedure Network Diagnostic Support Specialist Peripheral Procedures Fistula Fistulagram Single Access Procedure Description Procedure Date Procedure Date: 09/04/2019 Procedure Start Time: 10:49 Procedure Staff Name Function Rashel Kimball MD Performing Physician Carmelina Thomson RT Alarm Mechanic Jossie Downey RN Nurse Teresa Mock RN Nurse Jairon Rock RT Scrub Tyler Cabello CRNA Additional personnel Procedure Data Cath Procedure Fluoroscopy Diagnostic fluoroscopy Total fluoroscopy Time: 4.5 time: 4.5 min min Diagnostic fluoroscopy Total fluoroscopy dose: 105 dose: 105 mGy mGy Contrast Material Contrast Material Type Amount (ml) Isovue 300 65 Procedure Medications Medication Administration Route Dosage Heparin Flush Bag added to field 2 bags (1000units/500ml NS) Lidocaine 1% added to field 20 Hemodynamics Rest BSA: 2.11 (m2) O2 Consumption: Estimated: 243.38 (ml/min) O2 Consumption indexed : Estimated:115.35 (ml/min/m) Heart Rate: 73 (bpm) Snapshots Pre Cath Intra NCS Post Cath Vital Signs Time Heart Resp SPO2 etCO2 NIBP (mmHg) Rhythm Pain Sedation Rate (ipm) (%) (mmHg) Status Level (bpm) 10:33:17 72 12 100 0 Measuring NSR 0 (11) 10(A) , No pain 10:34:02 77 9 100 0 163/49(90) NSR 0 (11) 10(A) , No pain 10:39:01 78 9 98 0 Measuring NSR 0 (11) 10(A) , No pain 10:39:42 80 11 90 0 118/49(72) NSR 0 (11) 10(A) , No pain 10:44:40 74 12 93 15.8 Measuring NSR 0 (11) 10(A) , No pain 10:46:05 77 13 90 10.5 Time NSR 0 (11) 10(A) Exceeded , No pain 10:50:37 75 12 91 13.5 97/35(67) NSR 0 (11) 10(A) , No pain 10:54:41 76 12 90 18 96/34(59) NSR 0 (11) 10(A) , No pain 10:58:44 75 11 90 0 98/35(72) NSR 0 (11) 10(A) , No pain 11:02:48 76 12 91 0 100/35(56) NSR 0 (11) 10(A) , No pain 11:06:54 77 12 90 0 100/30(68) NSR 0 (11) 10(A) , No pain 11:10:58 76 12 93 0 102/41(82) NSR 0 (11) 10(A) , No pain 11:15:55 74 16 91 0 152/92(111) NSR 0 (11) 10(A) , No pain 11:20:17 67 13 95 0 93/34(65) NSR 0 (11) 10(A) , No pain 11:24:21 63 11 98 20.3 98/37(63) NSR 0 (11) 10(A) , No pain 11:29:10 65 13 98 7.5 122/105(120) NSR 0 (11) 10(A) , No pain Medications Time Medication Route Dose Verified Delivered Reason Notes Effe ctiveness by by 10:56:25 Heparin Flush added 2 Rashel Kiser used for Bag to bags Kimball Kimball procedure (1000units/500ml field MD KEMP NS) 10:56:38 Lidocaine 1% added 20ml Rashel Kiser for local to vial Kimball Kimball anesthetic field MD KEMP Procedure Log Time Note 10:16:37 Patient Height : 72 inches 10:16:43 Patient Weight : 195 lbs 10:16:47 Time tracking: Regular hours (M-F 7:00 - 5:00) 10:17:55 Plan of Care:Hemodynamics will remain stable., Cardiac rhythm will remain stable., Comfort level will be maintained., Respiratory function will remain adequate., Patient/ family verbilizes understanding of procedure., Procedure tolerated without complication., Recovers from procedure without complications.. 10:18:04 Patient received from Outpatients to IR Alert and oriented. Tansferred to table in Supine position. 10:18:07 Signed procedure consent form obtained from patient. 10:18:16 H&P Date Dictated: 09/04/2019 Within 30 days and on chart., H&P Addendu m completed by physician on day of procedure. (MUST COMPLETE FOR ALL OUTPATIENTS). 10:18:18 Pre-procedure instructions explained to patient. 10:18:19 Pre-op teaching completed and patient verbalized understanding. 10:18:21 Family unavailable. 10:18:24 Patient NPO since Midnight. 10:18:36 Patient allergic to No known allergies 10:18:42 Is the patient allergic to Iodine/contrast media? No. 10:19:04 - 10:19:07 ----Pre-sedation anethsthesia assessment.----see anesthesia notes for monitoring of patient during procedure 10:19:39 Previous problem with sedation/anesthesia? Yes hard to sedate with moderate sedation 10:20:12 - 10:20:24 IV patent on arrival in left hand with D5/.45%NaCl at KVO. 10:21:13 Right Arm area was prepped with chlora-prep and draped in sterile fashion 10:21:25 Use device set IR Diagnostic 10:21:32 Tegaderm 4 x 4 (1626W) opened to sterile field. 10:21:33 Sterile Angiographic Pack opened to sterile field. 10:21:34 Bag Decanter (2001S) opened to sterile field. 10:22:16 DOC .035 wire ([id number]) opened to sterile field. 10:22:17 DILATOR, VESSEL 4/20 opened to sterile field. 10:22:18 PERCUTANEOUS ENTRY 19GA needle opened to sterile field. 10:22:28 - 10:31:26 ECG and BP/O2 sat monitors applied to patient. 10:31:27 Vital chart was started 10:31:28 Baseline sample Acquired. 10:31:30 Full Disclosure recording started 10:31:31 - 10:31:38 Baseline sample Acquired. 10:48:50 Physician arrived 10:48:51 --------ALL STOP TIME OUT------ 10:48:52 Final Timeout: patient, procedure, and site verified with staff and physician. All members of the team are in agreement. 10:48:59 Fire Safety Assessment: A--An alcohol-based skin anteseptic being used preoperatively., C--Open oxygen or nitrous oxide is being used. 10:49:09 5) <15 or on dialysis Very severe, or end stage kidney failure. 10:49:39 Procedure started. 10:49:46 Local anesthetic to right arm with Lidocaine 1% by Rashel Kimball MD.INITIAL ACCESS ONLY 10:53:16 INFLATOR BasixTOUCH ([id number]) opened to sterile field. 10:54:01 ROADRUNNER .035 260 glide wire ([id number]) opened to sterile field. 10:54:41 Inflate balloon Inflation number: 1 A Evercross 8 x 4 x 135 Balloon ([id number]) was prepped and advanced across the Undefined1 , then inflated . 10:56:25 Heparin Flush Bag (1000units/500ml NS) 2 bags added to field was administered by Rashel Kimball MD; used for procedure; Verbal order read back and verified. 10:56:38 Lidocaine 1% 20ml vial added to field was administered by Rashel Kimball MD; for local anesthetic; Verbal order read back and verified. 10:56:49 Inflate balloon Inflation number: 1 A Evercross 10 x 40 x 135 Balloon ([id number]) was prepped and advanced across the Undefined2 , then inflated . 11:04:56 Baseline sample Acquired. 11:09:30 Procedure ended.(Physican Out) 11:10:05 Fluoroscopy time 04.50 minutes. 11:10:10 Fluoroscopy dose: 105 mGy 11:10:10 Flurop Dose total: 105 11:10:16 Contrast amount:Isovue 300 65ml. 11:10:20 Procedure and supply charges have been captured, reviewed, submitted an d are correct. 11:29:32 Vital chart was stopped Intervention Summary Intervention Notes Time ActionType Lesion and Equipment Used Action# Pressure Duration Attributes 10:54:41 Inflate Undefined1 Evercross 8 x 4 1 0 00:00 balloon x 135 Balloon ([id number]) 10:56:49 Inflate Undefined2 Evercross 10 x 1 0 00:00 balloon 40 x 135 Balloon ([id number]) Device Usage Item Name Manufacture Quantity Catalog Number Hospital Part Current M inimal Lot# / Charge Number Stock Stock Serial# Code Tegaderm 4 x 4 3M 1 [id number] 5 (1626W) Sterile Cardinal 1 [id number] 199138 5 Angiographic Health Pack Bag Decanter Microtek 1 [id number] 99146 129174 5 () Medical Inc. DOC .035 wire Cook Medical 1 [id number] 162475 112766 5 ([id number]) DILATOR, VESSEL [employer] 1 [id number] 418526 64428 775505 5 [id number] 01/31 PERCUTANEOUS [employer] 1 [id number] 234768 705469 5 [id number] ENTRY 19GA needle INFLATOR Merit 1 EU5083 961191 565422 150944 5 [facility] Medical ([id number]) ROADRUNNER .035 [employer] 1 U33080 301154 093148 329041 5 [id number] 260 glide wire ([id number]) Evercross 8 x 4 Medtronic 1 [id number] 337190 285266 165994 5 x 135 Balloon ([id number]) Evercross 10 x Medtronic 1 [id number] 448656 167384 711522 5 40 x 135 Balloon ([id number]) Signature Audit [place] Stage Time Signature Unsigned Intra-Procedure 09/04/2019 Carmelina Thomson 11:29:29 AM RT(R) [place] [place] [address]
[2019-09-04 07:52] LABS: HEMATOCRIT 41.2 % (42.0-54.0); HEMOGLOBIN 13.5 g/dL (13.5-17.5); LYMPHOCYTES 18.9 % (15-50); MCH 33.5 pg (26.0-34.0); MCHC 32.8 g/dL (31.0-37.0); MCV 102.2 fL (80.0-100.0); MEAN PLATELET VOLUME 9.9 fL (7.4-10.4); NEUTROPHILS 63.6 % (40-80); RBC 4.03 10x6/uL (4.20-6.10); RDW 13.4 % (11.5-14.5); WBC 5.6 10x3/uL (4.8-10.8)
[2019-09-04 07:53] LABS: PLATELET COUNT 125 10x3/uL (130-400)
[2019-09-04 08:06] LABS: INR 1.02 (0.85-1.17); PROTIME 12.9 SECONDS (11.6-15.0)
[2019-09-04 08:11] LABS: ALBUMIN 3.1 g/dL (3.4-5.0); ANION GAP 10.5 mmol/L (8-16); BILIRUBIN - TOTAL 0.42 mg/dL (0.2-1.3); CALCIUM 8.8 mg/dL (8.5-10.1); CARBON DIOXIDE 31.8 mmol/L (21.0-32.0); CREATININE - SERUM 6.8 mg/dL (0.6-1.3); POTASSIUM - SERUM 4.3 mmol/L (3.5-5.1); PROTEIN - SERUM 7.5 g/dL (6.4-8.2)
[2019-09-04 08:47] VITALS: BP 128/66; Ht 182.9 cm; Wt 88.6 kg
[2019-09-04] MEDS ORDERED: ISOSORBIDE DINI10 MG PO (09:12)
[2019-09-04] MEDS ORDERED: NEURONTIN 300300 MG PO (09:13)
--- NOTE | 2019-09-04 13:00 | NUR ---
LEFT FOREARM PIV DC'D WITH TIP INTACT. DISCHARGED HOME VIA WHEELCHAIR TO LONGTERM TRANSPORTATION VAN
== END 2019-09-04 13:00 | disposition home or self-care (01) ==
LOC: D.RAD 07:25 → D.SP 07:25 → D.RAD 10:30 → D.SP 13:00
PROVIDERS: Anesthesiology; Specialist; ATTEND Internal Medicine Nephrology
DX: T82.858A Stenosis of other vascular prosthetic devices, implants and grafts, initial encounter (principal); Y83.9 Surgical procedure, unspecified as the cause of abnormal reaction of the patient, or of later complication, without mention of misadventure at the time of the procedure; E11.22 Type 2 diabetes mellitus with diabetic chronic kidney disease; I13.2 Hypertensive heart and chronic kidney disease with heart failure and with stage 5 chronic kidney disease, or end stage renal disease; I50.9 Heart failure, unspecified; N18.6 End stage renal disease; Z99.2 Dependence on renal dialysis

== ENCOUNTER 2020-07-03 18:41 | Inpatient (IN) | payer MEDICARE ==
[~2020-07-03] VITALS: Ht 182.9 cm; Wt 91.2 kg
[2020-07-03 19:48] LABS: ANION GAP 19.4 mmol/L (8-16); CARBON DIOXIDE 22.8 mmol/L (21.0-32.0); POTASSIUM - SERUM 5.2 mmol/L (3.5-5.1)
[2020-07-03 19:54] LABS: ALBUMIN 3.1 g/dL (3.4-5.0); BILIRUBIN - TOTAL 0.51 mg/dL (0.2-1.3); MAGNESIUM - SERUM 2.1 mg/dL (1.8-2.4); PROTEIN - SERUM 7.6 g/dL (6.4-8.2)
[2020-07-03 20:00] VITALS: BP 155/83
[2020-07-03 20:05] LABS: HEMATOCRIT 43.4 % (42.0-54.0); MCH 33.2 pg (26.0-34.0); MCHC 32.3 g/dL (31.0-37.0); MCV 102.8 fL (80.0-100.0); MEAN PLATELET VOLUME 10.7 fL (7.4-10.4); PLATELET COUNT 184 10x3/uL (130-400); RBC 4.22 10x6/uL (4.20-6.10); RDW 14.3 % (11.5-14.5); WBC 21.4 10x3/uL (4.8-10.8)
[2020-07-03 20:32] LABS: APTT 30.9 SECONDS (22.8-39.4); INR 1.12 (0.85-1.17); PROTIME 14.4 SECONDS (11.6-15.0)
[2020-07-03 20:50] LABS: LYMPHOCYTES 7 % (15-50); MONOCYTES 3 % (2-11); NEUTROPHILS 89 % (40-80); PLATELET ESTIMATE NORMAL
[2020-07-03 21:00] VITALS: BP 151/82
[2020-07-03 22:00] VITALS: BP 147/75
[2020-07-03 23:00] VITALS: BP 147/79
[2020-07-04] VITALS (8 sets, daily range): BP systolic 125–158; BP diastolic 57–97
--- NOTE | 2020-07-04 01:00 | NUR ---
Late entry: Infusion time for 07/03 Zosyn 3.375: [id number] Infusion time for 07/03 Vanc: 07/03 2306-07/04 0006
--- NOTE | 2020-07-04 01:11 | NUR ---
PT INCON CARE PROVIDED. PT IN AND OUT CATH UA OBTAINED AND SENT TO LAB.
[2020-07-04 01:39] LABS: NITRITE NEGATIVE (NEGATIVE)
[2020-07-04 01:40] LABS: BILIRUBIN NEGATIVE (NEGATIVE); KETONE NEGATIVE (NEGATIVE); UROBILINOGEN NORMAL mg/dL (< 2)
[2020-07-04 01:41] LABS: BACTERIA MANY HPF (NONE SEEN); EPITHELIAL CELLS 0-5 /hpf (0-5); WHITE CELLS - URINE 25-50 HPF (0-1)
--- NOTE | 2020-07-04 02:50 | NUR ---
PT REPOSITIONED IN BED X2 STAFF. BLANKET GIVEN PT CALL LIGHT WITHIN REACH.
[2020-07-04 03:04] LABS: CKMB 1.5 U/L (0.0-3.6); CREATINE KINASE 33 UL (21-232)
[2020-07-04 03:06] LABS: TROPONIN-I 0.236 ng/mL (0.000-0.060)
--- NOTE | 2020-07-04 03:13 | NUR ---
REPEAT TROPONIN 0.236. SPOKE TO DR CORREIA, SINCE PT IS ER HOLD. INSTRUCTED TO PUT CONSULT IN FOR CARDIOLOGY.
--- NOTE | 2020-07-04 04:08 | NUR ---
pt repositioned in bed x2 staff.
--- NOTE | 2020-07-04 06:44 | NUR ---
CBG IS 139 AT THIS TIME.
[2020-07-04 07:43] LABS: BASOPHILS 0.1 % (0-2); EOSINOPHILS 0 % (0-7); HEMATOCRIT 40.3 % (42.0-54.0); HEMOGLOBIN 13.5 g/dL (13.5-17.5); IMMATURE GRANULOCYTES 0.5 % (0-5); LYMPHOCYTES 4.3 % (15-50); MCH 33.3 pg (26.0-34.0); MCHC 33.5 g/dL (31.0-37.0); MCV 99.3 fL (80.0-100.0); MEAN PLATELET VOLUME 10.7 fL (7.4-10.4); MONOCYTES 6.5 % (2-11); NEUTROPHILS 88.6 % (40-80); PLATELET COUNT 200 10x3/uL (130-400); RBC 4.06 10x6/uL (4.20-6.10)
[2020-07-04 07:52] LABS: CALC OSMOLALITY 295 mosm/kg (275-300); CALCIUM 9.2 mg/dL (8.5-10.1); CARBON DIOXIDE 21.7 mmol/L (21.0-32.0); CHLORIDE - SERUM 98 mmol/L (98-107); CKMB 1.7 U/L (0.0-3.6); CREATINE KINASE 36 UL (21-232); GLUCOSE 136 mg/dL (74-106); POTASSIUM - SERUM 5.4 mmol/L (3.5-5.1); SODIUM 134 mmol/L (136-145); UREA NITROGEN 84 mg/dL (7-18); eGFR NON AFRICAN AMERICAN 5 mL/min (90-120)
[2020-07-04 07:54] LABS: TROPONIN-I 0.373 ng/mL (0.000-0.060)
--- NOTE | 2020-07-04 10:24 | NUR ---
ATTEMPT TO CALL REPORT. NURSE IS IN PT ROOM.
--- NOTE | 2020-07-04 10:46 | NUR ---
ATTEMPTED TO CALL REPORT. NURSE IN PATIENT ROOM.
--- NOTE | 2020-07-04 11:06 | NUR ---
ATTEMPT TO CALL ER FOR REPORT AND THEY STATED THE NURSE WILL HAVE TO CALL ME BACK. I VERBALIZED UNDERSTANDING.
--- NOTE | 2020-07-04 11:22 | NUR ---
REPORT CALLED TO ALEXANDRA CHAU.
--- NOTE | 2020-07-04 11:47 | NUR ---
CALLED [facility] AND THEY STATE THEY WILL FAX PT'S INFORMATION PER MEDICAL RECORDS.
--- NOTE | 2020-07-04 12:00 | NUR ---
LAB CALLED AND PT IS COVID NEGATIVE.
--- NOTE | 2020-07-04 12:19 | NUR ---
FSBS 123, NO INSULIN ADMIN.
--- NOTE | 2020-07-04 13:21 | NUR ---
NEVER RECEIVED FAX. SPOKE WITH ALONZO CAHU AT THE [facility] AND SHE STATES SHE WILL REFAX IT. I ALSO ASKED HER IF PT'S APHASIA IS NEW IF HE HAS HAD IT AND SHE STATES THAT IT IS NEW AND HE DID NOT HAVE IT THERE. I VERBALIZED UNDERSTANDING.
[2020-07-04] MEDS ORDERED: CALMOSEPTINE OI71 GM TOPICAL (13:58)
[2020-07-04] MEDS ORDERED: COREG6.25 MG PO ×2 (14:00→14:01)
[2020-07-04] MEDS ORDERED: IPRAT-ALBUT 0.5-3 ML UPD (14:04)
[2020-07-04] MEDS ORDERED: ISOSORBIDE DINI10 MG PO ×2 (14:06→14:07)
[2020-07-04] MEDS ORDERED: HYDROCODON-ACE1 EAC7 PO (14:08)
[2020-07-04 14:10] LABS: CREATINE KINASE 42 UL (21-232); TROPONIN-I 0.486 ng/mL (0.000-0.060)
--- NOTE | 2020-07-04 15:30 | NUR ---
PT TO DIALYSIS.
--- NOTE | 2020-07-04 15:35 | NUR ---
SPEECH THERAPY LEFT A NOTE FOR PT TO BE MECH SOFT FOR DIET.
--- NOTE | 2020-07-04 15:48 | NUR ---
NOTE ON DESK TO CALL PT'S DAUGHTER NICKI. CALLED AND SPOKE WITH HER AND ANSWERED ALL HER QUESTIONS.
--- NOTE | 2020-07-04 16:16 | NUR ---
CALLED AND SPOKE WITH LEO PEÑA AND STATED TO HER TROPONIN IS 0.486. SHE STATES THEY ARE AWARE. I VERBALIZED UNDERSTANDING.
--- NOTE | 2020-07-04 18:19 | MORECARE ---
CASE MANAGEMENT DISCHARGE SUMMARY PATIENT: BRYANT ESPANA UNIT: [id number] ADM DATE: 07/03/20 AGE: 80 : 39 SEX: M ROOM/BED: D.2847 AUTHOR: JAYDEN HINOJOSA PHYSICIAN: REFERRING PHYSICIAN: AMARJIT MAYFIELD DO DATE OF SERVICE: 07/04/20 Discharge Plan Patient Name: BRYANT ESPANA Facility: [facility]:[place] : 1940 Planned Disposition: Anticipated Discharge Date: Discharge Date: Expected LOS: Initial Reviewer: [email or web address] Initial Review Date: 07/03/2020 Generated: 07/04/20 7:19 pm Patient Name: BRYANT ESPANA Page 57552 at 1819 All edits/amendments must be made on the electronic document DICTATION DATE: 07/04/201818 PERSONAL CARE ASSISTANT: ZOE 07/04/201818 RPT#: [id number] DC DATE: STATUS: ADM IN [facility] [address] [place] [address] END OF REPORT
--- NOTE | 2020-07-04 19:30 | NUR ---
RECEIVED BEDSIDE REPORT. ROUNDING COMPLETE. PATIENT RESTING COMFORTABLY IN BED. RESPIRATIONS ARE EVEN AND UNLABORED. NO S/S OF DISTRESS. NO C/O PAIN. CALL LIGHT WITHIN REACH. WILL CPOC.
--- NOTE | 2020-07-04 21:11 | MORECARE ---
CASE MANAGEMENT DISCHARGE SUMMARY PATIENT: BRYANT ESPANA UNIT: [id number] ADM DATE: 07/03/20 AGE: 80 : 39 SEX: M ROOM/BED: D.2126 AUTHOR: JAYDEN HINOJOSA PHYSICIAN: REFERRING PHYSICIAN: AMARJIT MAYFIELD DO DATE OF SERVICE: 07/04/20 Discharge Plan Patient Name: BRYANT ESPANA [facility] [facility] 1940 Planned Disposition: Anticipated Discharge Date: Discharge Date: Expected LOS: Initial Reviewer: [email or web address] Initial Review Date: 07/03/2020 Generated: 07/04/20 10:11 pm Last DP export: 07/04/20 5:19 p Patient Name: BRYANT ESPANA Page 97191 at 211 All edits/amendments must be made on the electronic document DICTATION DATE: 07/04/202110 SEAT COVER INSTALLER: ZOE 07/04/202110 RPT#: [id number] DC DATE: STATUS: ADM IN [facility] [address] [place] [address] END OF REPORT
[2020-07-05] VITALS: BP 144/83
[2020-07-05 04:00] VITALS: BP 153/92
[2020-07-05 07:00] VITALS: BP 133/79
[2020-07-05 07:11] LABS: ALBUMIN 2.5 g/dL (3.4-5.0); BILIRUBIN - TOTAL 0.72 mg/dL (0.2-1.3); CALCIUM 9.1 mg/dL (8.5-10.1); CARBON DIOXIDE 26.7 mmol/L (21.0-32.0); CREATININE - SERUM 8.6 mg/dL (0.6-1.3); PROTEIN - SERUM 7.4 g/dL (6.4-8.2); VANCOMYCIN - RANDOM 10.1 ug/mL (10.0-20.0)
[2020-07-05 07:14] LABS: ANION GAP 18.6 mmol/L (8-16); POTASSIUM - SERUM 4.3 mmol/L (3.5-5.1)
--- NOTE | 2020-07-05 07:20 | NUR ---
RECIEVE REPORT. RESTING IN BED WITH EYES CLOSED. NO SIGNS OF DISTRESS. CONTINUE PLAN OF CARE AND SAFETY PRECAUTIONS.
[2020-07-05 07:44] LABS: BASOPHILS 0.2 % (0-2); EOSINOPHILS 0.1 % (0-7); HEMATOCRIT 38.7 % (42.0-54.0); HEMOGLOBIN 12.8 g/dL (13.5-17.5); IMMATURE GRANULOCYTES 0.8 % (0-5); LYMPHOCYTES 5.9 % (15-50); MCH 33.4 pg (26.0-34.0); MCHC 33.1 g/dL (31.0-37.0); MEAN PLATELET VOLUME 10.9 fL (7.4-10.4); MONOCYTES 12.5 % (2-11); NEUTROPHILS 80.5 % (40-80); PLATELET COUNT 196 10x3/uL (130-400); RBC 3.83 10x6/uL (4.20-6.10); RDW 14.7 % (11.5-14.5); WBC 12.7 10x3/uL (4.8-10.8)
[2020-07-05 12:15] VITALS: BP 147/76
[2020-07-05 14:24] VITALS: Ht 182.9 cm; Wt 91.2 kg
[2020-07-05 16:52] VITALS: BP 151/87
--- NOTE | 2020-07-05 19:45 | NUR ---
RECEIVED BEDSIDE REPORT. ROUNDING COMPLETE. PATIENT IS ALERT AND PLEASANLY CONFUSED. RESPIRATIONS ARE EVEN AND UNLABORED. NO S/S OF DISTRESS. NO C/O PAIN. CALL LIGHT WITHIN REACH. WILL CPOC.
[2020-07-05 20:00] VITALS: BP 148/92
[2020-07-06] VITALS: BP 129/88
[2020-07-06 04:00] VITALS: BP 131/72
--- NOTE | 2020-07-06 05:00 | NUR ---
6 ATTEMPTS TO START IV WITHOUT SUCCESS.
[2020-07-06 07:50] LABS: ANION GAP 21.5 mmol/L (8-16); CARBON DIOXIDE 23.1 mmol/L (21.0-32.0); CREATININE - SERUM 10.4 mg/dL (0.6-1.3); POTASSIUM - SERUM 4.6 mmol/L (3.5-5.1); VANCOMYCIN - RANDOM 9.3 ug/mL (10.0-20.0)
[2020-07-06 07:56] LABS: HEMATOCRIT 35.3 % (42.0-54.0); HEMOGLOBIN 11.7 g/dL (13.5-17.5); MCH 33.1 pg (26.0-34.0); MCHC 33.1 g/dL (31.0-37.0); MCV 99.7 fL (80.0-100.0); MEAN PLATELET VOLUME 11.2 fL (7.4-10.4); PLATELET COUNT 183 10x3/uL (130-400); RBC 3.54 10x6/uL (4.20-6.10); RDW 14.5 % (11.5-14.5)
[2020-07-06 07:57] LABS: WBC 8.8 10x3/uL (4.8-10.8)
[2020-07-06 08:14] VITALS: BP 146/76
[2020-07-06 09:12] LABS: LYMPHOCYTES 4 % (15-50); MONOCYTES 13 % (2-11); NEUTROPHILS 82 % (40-80); PLATELET ESTIMATE NORMAL
--- NOTE | 2020-07-06 10:00 | NUR ---
PT SENT TO DIALYSIS ON BED. ONE TIME VANC DOSE SENT AND MYRTLE RN STATES WILL INFUSE AT END OF SESSION. PT IS WITHOUT IV, VASCULAR ACCESS NURSE UNABLE TO OBTAIN ONE THIS MORNING AFTER PRIOR SHIFT WITH MULTIPLE STICKS.
[2020-07-06 17:17] VITALS: BP 147/89
[2020-07-06 20:00] VITALS: BP 148/79
[2020-07-07 04:00] VITALS: BP 135/85
[2020-07-07 07:10] LABS: BASOPHILS 0 % (0-2); EOSINOPHILS 0.5 % (0-7); HEMATOCRIT 34.8 % (42.0-54.0); HEMOGLOBIN 11.3 g/dL (13.5-17.5); IMMATURE GRANULOCYTES 0.7 % (0-5); LYMPHOCYTES 12.1 % (15-50); MCH 32.8 pg (26.0-34.0); MCHC 32.5 g/dL (31.0-37.0); MCV 101.2 fL (80.0-100.0); MEAN PLATELET VOLUME 10.9 fL (7.4-10.4); MONOCYTES 15.5 % (2-11); NEUTROPHILS 71.2 % (40-80); PLATELET COUNT 198 10x3/uL (130-400); RBC 3.44 10x6/uL (4.20-6.10); RDW 14.4 % (11.5-14.5); WBC 8.1 10x3/uL (4.8-10.8)
[2020-07-07 07:53] LABS: ANION GAP 20.8 mmol/L (8-16); CALCIUM 8.5 mg/dL (8.5-10.1); CARBON DIOXIDE 23.5 mmol/L (21.0-32.0); POTASSIUM - SERUM 4.3 mmol/L (3.5-5.1); VANCOMYCIN - RANDOM 11.1 ug/mL (10.0-20.0)
[2020-07-07 08:07] VITALS: BP 178/94
--- NOTE | 2020-07-07 11:13 | NUR ---
PT REMOVED TELEMETRY MULTIPLE TIMES THIS MORNING. FOUND MONITOR IN FLOOR AGAIN. TURNED IN TO COLOR MATCHER DUE TO PT NOT LEAVING ON.
[2020-07-07 11:16] VITALS: BP 143/89
--- NOTE | 2020-07-07 13:30 | NUR ---
Nutrition Follow-up: Pt with dementia; no family at BS. Chart reviewed. 0% of breakfast eaten this AM per record. ST following. HD yesterday. Diet: Renal ADA, Mech Soft PO intake: 25% avg x 6 meals WT: 195.5# (07/05) Labs noted: K+ 4.3, Glu 136 Meds noted: Karlo -Encourage PO intake and honor food preferences within diet restrictions. -+Nepro with meals. -Monitor wt. -RD following.
--- NOTE | 2020-07-07 14:41 | NUR ---
IV SITE TO RIGHT CHEST. ANTIBIOTIC GIVEN. PT INSTRUCTED TO LEAVE IN PLACE.
[2020-07-07 15:12] VITALS: BP 140/89
--- NOTE | 2020-07-07 19:30 | NUR ---
PT IN BED, EYES CLOSED, RESP EVEN AND UNLABORED, NO DISTRESS NOTED, CL IN REACH, SR UP X 2.
[2020-07-07 20:22] VITALS: BP 142/93
[2020-07-08 00:32] VITALS: BP 135/87
[2020-07-08 04:30] VITALS: BP 144/86
[2020-07-08 05:48] LABS: CALCIUM 8.6 mg/dL (8.5-10.1); CARBON DIOXIDE 24.5 mmol/L (21.0-32.0); CREATININE - SERUM 9.9 mg/dL (0.6-1.3); POTASSIUM - SERUM 4.5 mmol/L (3.5-5.1); VANCOMYCIN - RANDOM 11.6 ug/mL (10.0-20.0)
[2020-07-08 06:40] LABS: BASOPHILS 0.2 % (0-2); HEMATOCRIT 33.6 % (42.0-54.0); IMMATURE GRANULOCYTES 1.2 % (0-5); LYMPHOCYTES 11.5 % (15-50); MCH 32.8 pg (26.0-34.0); MCHC 32.7 g/dL (31.0-37.0); MCV 100.3 fL (80.0-100.0); MEAN PLATELET VOLUME 11.3 fL (7.4-10.4); MONOCYTES 16.1 % (2-11); PLATELET COUNT 198 10x3/uL (130-400); RBC 3.35 10x6/uL (4.20-6.10); RDW 14.3 % (11.5-14.5)
--- NOTE | 2020-07-08 07:15 | NUR ---
RECEIVE SHIFT REPORT. RESTING IN BED AND STATES HE WANTS TO GET UP AND GO TO THE BATHROOM. ALERT BUT CONFUSED. PLACED ON BEDPAN AND CLEANED UP. NO IV ACCESS SINCE HE WILL NOT KEEP ONE IN. DR. ARCINIEGA IS AWARE AND CHANGED MEDICATIONS TO PO. DIALYSIS TODAY. WILL CONTINUE PLAN OF CARE AND SAFETY PRECAUTIONS.
[2020-07-08 08:38] VITALS: BP 167/81
--- NOTE | 2020-07-08 10:07 | MORECARE ---
CASE MANAGEMENT DISCHARGE SUMMARY PATIENT: BRYANT ESPANA UNIT: [id number] ADM DATE: 07/03/20 AGE: 80 : 39 SEX: M ROOM/BED: D.4675 AUTHOR: JAYDEN HINOJOSA PHYSICIAN: REFERRING PHYSICIAN: AMARJIT MAYFIELD DO DATE OF SERVICE: 07/08/20 Discharge Plan Patient Name: BRYANT ESPANA Facility: [facility]:[place] : 1940 Planned Disposition: Anticipated Discharge Date: Discharge Date: Expected LOS: Initial Reviewer: [email or web address] Initial Review Date: 07/03/2020 Generated: 07/08/20 11:06 am External Providers External Provider: [facility] Next Contact Date: Service Request Date: Service Type: Resolution: Reviewer: Comments: Last DP export: 07/04/20 8:11 p Patient Name: BRYANT ESPANA Page [phone] at 1007 All edits/amendments must be made on the electronic document DICTATION DATE: 07/08/20 1006 CURTAIN FELLER BLINDSTITCH: ZOE 07/08/20 1006 RPT#: [id number] [place] DATE: STATUS: ADM IN [facility] [address] [place] [address] END OF REPORT
--- NOTE | 2020-07-08 13:14 | NUR ---
CALLED [facility], REGARDING PT'S DISCHARGE HOME MEDICATIONS. MEDICATIONS MARKED.
[2020-07-08] MEDS ORDERED: AMOX TR-K CLV 475 ML PO (13:17)
--- NOTE | 2020-07-08 14:06 | MORECARE ---
CASE MANAGEMENT DISCHARGE SUMMARY PATIENT: BRYANT ESPANA UNIT: [id number] ADM DATE: 07/03/20 AGE: 80 : 39 SEX: M ROOM/BED: D.0397 AUTHOR: JAYDEN HINOJOSA PHYSICIAN: REFERRING PHYSICIAN: AMARJIT MAYFIELD DO DATE OF SERVICE: 07/08/20 Discharge Plan Patient Name: BRYANT ESPANA Facility: [facility]:[place] : 1940 Planned Disposition: Anticipated Discharge Date: Discharge Date: Expected LOS: Initial Reviewer: [email or web address] Initial Review Date: 07/03/2020 Generated: 07/08/20 3:06 pm Comments DCP- Discharge Planning Updated by [email or web address]: Citlaly Mejia on 07/08/20 1:[address] Patient Name: BRYANT ESPANA Encounter No: [id number] : 1940 Primary Insurance: MEDICARE A & B Anticipated DC Date: Planned Disposition: External Planned Provider: : DCP follow-up note: HOSEA spoke with Brenda at the [facility] nursing and Rehab at [phone]. The patient is in a STEWART bed and will return to the facility in a STEWART bed. The facility will be able to transport the patient back home after 4 pm today 07/08/20. Nursing can call report to [phone]. CM attempted to call the patients family. Cm called Sylvia at [phone] about discharge plan. DC IMM explained via phone. Sylvia verbalized understanding. Imm will be sent by certified mail with return receipt requested Patient and family in agreement with discharge plan. Updated orders and requested information faxed to SNF. Patient\family notified of anticipated dc time. [facility] phone number and contact information given to patient \family. Patient will be transported by the [facility]. Citlaly Mejia Last DP export: 07/08/20 9:06 a Patient Name: BRYANT ESPANA Page 66871 at 1406 All edits/amendments must be made on the electronic document DICTATION DATE: 07/08/20 1406 CHILD WELFARE ASSISTANT: ZOE 07/08/20 1406 RPT#: [id number] DC DATE: STATUS: ADM IN [facility] [address] [facility] [place] [address] END OF REPORT
--- NOTE | 2020-07-08 14:15 | NUR ---
PATIENT BACK FROM DIALYSIS VIA BED. BLOOD PRESSURE 132/86. WILL BE D/C TO THE [facility] TODAY.
--- NOTE | 2020-07-08 14:17 | MORECARE ---
CASE MANAGEMENT DISCHARGE SUMMARY PATIENT: BRYANT ESPANA UNIT: [id number] ADM DATE: 07/03/20 AGE: 80 : 39 SEX: M ROOM/BED: D.2221 AUTHOR: ASHISH,DOC PHYSICIAN: REFERRING PHYSICIAN: AMARJIT MAYFIELD DO DATE OF SERVICE: 07/08/20 Discharge Plan Patient Name: BRYANT ESPANA Facility: [facility]:[place] : 1940 Planned Disposition: Anticipated Discharge Date: Discharge Date: Expected LOS: Initial Reviewer: [email or web address] Initial Review Date: 07/03/2020 Generated: 07/08/20 3:17 pm Comments DCP- Discharge Planning Updated by [email or web address]: Citlaly Mejia on 07/08/20 1:[address] Patient Name: BRYANT ESPANA Encounter No: [id number] : 1940 Primary Insurance: MEDICARE A & B Anticipated DC Date: Planned Disposition: External Planned Provider: : DCP follow-up note: HOSEA spoke with Brenda at the [facility] nursing and Rehab at [phone]. The patient is in a STEWART bed and will return to the facility in a STEWART bed. The facility will be able to transport the patient back home after 4 pm today 07/08/20. Nursing can call report to [phone]. CM attempted to call the patients family. Cm called Sylvia at [phone] about discharge plan. DC IMM explained via phone. Sylvia verbalized understanding. Imm will be sent by certified mail with return receipt requested to Sylvia Espana at [address] [place] [address]. Patient and family in agreement with discharge plan. Updated orders and requested information faxed to SNF. Patient\family notified of anticipated dc time. SNF phone number and contact information given to patient \family. Citlaly Mejia DCPIA - Discharge Planning Initial Assessment Updated by [email or web address]: Citlaly Mejia on 07/08/20 2:07 pm * PCP at the [facility] Coverage Notice Reviewer: [email or web address] - Citlaly Mejia Notice Issued Date-Time: 07/08/2020 14:00 Notice Type: IM Discharge Notice Notice Delivered To: Family Member Relationship to Patient: Child No Finc Resp Alteration Workroom Supervisor Name: Sylvia Espana Delivery Method: HAND - Hand Delivered Mona Days: Prior Verbal Notification: Recipient Understood Notice: Yes Recipient Signature: Yes Med Rec Note Co-signed by Attending: Coverage Notice Comment: DC IMM explained via phone. verbalized understanding. Imm will be sent by certified mail with return receipt requested from Sylvia Espana Last DP export: 07/08/20 1:06 p Patient Name: BRYANT ESPANA Page 71550 at 1417 All edits/amendments must be made on the electronic document DICTATION DATE: 07/08/201416 TANK CLEANING SUPERVISOR: ZOE 07/08/207 RPT#: [id number] DC DATE: STATUS: ADM IN [facility] [address] [place] [address] END OF REPORT
--- NOTE | 2020-07-08 16:19 | NUR ---
CALLED REPORT TO GONZALEZ AT THE [facility]. PATIENT READY FOR D/C. AWAITING ARRIVAL FOR TRANSPORT.
--- NOTE | 2020-07-08 16:45 | NUR ---
[facility] PICKING UP PATIENT. TRANSFERRED VIA WHEELCHAIR. REMAINS FREE FROM INJURY.
--- NOTE | 2020-07-11 08:46 | MORECARE ---
CASE MANAGEMENT DISCHARGE SUMMARY PATIENT: BRYANT ESPANA UNIT: [id number] ADM DATE: 07/03/20 AGE: 80 : 39 SEX: M ROOM/BED: D.5094 AUTHOR: JAYDEN HINOJOSA PHYSICIAN: REFERRING PHYSICIAN: AMARJIT MAYFIELD DO DATE OF SERVICE: 07/11/20 Discharge Plan Patient Name: BRYANT ESPANA Facility: [facility]:[place] : 1940 Planned Disposition: Anticipated Discharge Date: Discharge Date: 07/08/2020 Expected LOS: Initial Reviewer: [email or web address] Initial Review Date: 07/03/2020 Generated: 07/11/20 9:46 am Comments DCP- Discharge Planning Updated by [email or web address]: Citlaly Mejia on 07/08/20 1:[address] Patient Name: BRYANT ESPANA Encounter No: [id number] : 1940 Primary Insurance: MEDICARE A & B Anticipated DC Date: Planned Disposition: External Planned Provider: : DCP follow-up note: HOSEA spoke with Brenda at the [facility] nursing and Rehab at [phone]. The patient is in a STEWART bed and will return to the facility in a STEWART bed. The facility will be able to transport the patient back home after 4 pm today 07/08/20. Nursing can call report to [phone]. CM attempted to call the patients family. Cm called Sylvia at [phone] about discharge plan. DC IMM explained via phone. Sylvia verbalized understanding. Imm will be sent by certified mail with return receipt requested to Sylvia Espana at [address] [place] [address]. Patient and family in agreement with discharge plan. Updated orders and requested information faxed to SNF. Patient\family notified of anticipated dc time. SNF phone number and contact information given to patient \family. Citlaly Mejia DCPIA - Discharge Planning Initial Assessment Updated by [email or web address]: Citlaly Mejia on 07/08/20 2:07 pm * PCP at the [facility] Coverage Notice Reviewer: [email or web address] - Citlaly Mejia Notice Issued Date-Time: 07/08/2020 14:00 Notice Type: IM Discharge Notice Notice Delivered To: Family Member Relationship to Patient: Child No Finc Resp Flask Fitter Name: Sylvia Espana Delivery Method: HAND - Hand Delivered Mona Days: Prior Verbal Notification: Recipient Understood Notice: Yes Recipient Signature: Yes Med Rec Note Co-signed by Attending: Coverage Notice Comment: DC IMM explained via phone. verbalized understanding. Imm will be sent by certified mail with return receipt requested from Sylvia Espana Last DP export: 07/08/20 1:17 p Patient Name: BRYANT ESPANA Page 95652 at 0846 All edits/amendments must be made on the electronic document DICTATION DATE: 07/11/20845 CLEAN RICE GRADER AND REEL TENDER: ZOE 07/11/2046 RPT#: [id number] DC DATE:07/08/20 STATUS: DIS IN [facility] [address] [place] [address] END OF REPORT
== END 2020-07-08 17:14 | DRG 280 ==
LOC: D.ER 18:41 → D.M2 21:04 → D.EDHOLD 21:04 → D.M2 07-04 08:45
PROVIDERS: Family Medicine; Internal Medicine Nephrology; ADMIT Internal Medicine; ATTEND Internal Medicine
PROC: 5A1D70Z Performance of Urinary Filtration, Intermittent, Less than 6 Hours Per Day (ICD-10-PCS; principal; 2020-07-04)
DX: I13.2 Hypertensive heart and chronic kidney disease with heart failure and with stage 5 chronic kidney disease, or end stage renal disease (principal); J18.9 Pneumonia, unspecified organism; I21.A1 Myocardial infarction type 2; N18.6 End stage renal disease; I50.22 Chronic systolic (congestive) heart failure; E11.22 Type 2 diabetes mellitus with diabetic chronic kidney disease; E78.5 Hyperlipidemia, unspecified; F03.90 Unspecified dementia, unspecified severity, without behavioral disturbance, psychotic disturbance, mood disturbance, and anxiety; I25.10 Atherosclerotic heart disease of native coronary artery without angina pectoris; E87.6 Hypokalemia; I25.5 Ischemic cardiomyopathy; I08.1 Rheumatic disorders of both mitral and tricuspid valves